=== PATIENT | female | born 1985 | race Caucasian/White ===

== ENCOUNTER → 2016-11-25 | Outpatient (CLI) | payer MEDICARE, MEDICAID | LOC: WI 09:01 | PROVIDERS: ATTEND Specialist | DX: K76.89 Other specified diseases of liver (principal) | CPT/HCPCS: 76705; 93976 ==

== ENCOUNTER → 2017-03-07 | Outpatient (CLI) | payer MEDICARE, MEDICAID ==
[2017-03-07 14:22] LABS: ABSOLUTE EOSINOPHILS # (AUTO) 0.2 10^3/uL (0.0-0.6); ABSOLUTE LYMPHOCYTES (AUTO) 2.5 10^3/uL (0.5-4.7); ABSOLUTE MONOCYTES (AUTO) 0.5 10^3/uL (0.1-1.4); ABSOLUTE NEUT (AUTO) 3.4 10^3/uL (1.7-8.2); BASOPHILS % (AUTO) 0.6 % (0-2); EOSINOPHILS % (AUTO) 3.3 % (0-6); HEMATOCRIT 38.1 % (36.0-47.0); HEMOGLOBIN 12.7 g/dL (12.0-15.5); LYMPHOCYTES % (AUTO) 38.1 % (13-45); MEAN CORPUSCULAR HEMOGLOBIN 31.6 pg (27.0-33.4); MEAN CORPUSCULAR HGB CONC 33.3 g/dL (32.0-36.0); MEAN CORPUSCULAR VOLUME 95 fl (80-97); MONOCYTES % (AUTO) 7.1 % (3-13); RED BLOOD COUNT 4.02 10^6/uL (3.72-5.28); RED CELL DISTRIBUTION WIDTH 12.9 % (11.5-14.0); SEGMENTED NEUTROPHILS % (AUTO) 50.9 % (42-78); WHITE BLOOD COUNT 6.6 10^3/uL (4.0-10.5)
[2017-03-07 14:42] LABS: ALANINE AMINOTRANSFERASE 42 U/L (9-52); ALBUMIN 4.3 g/dL (3.5-5.0); ALKALINE PHOSPHATASE 80 U/L (38-126); ANION GAP 10 (5-19); ASPARTATE AMINO TRANSFERASE 22 U/L (14-36); BILIRUBIN,DIRECT 0.4 mg/dL (0.0-0.4); BILIRUBIN,TOTAL 0.6 mg/dL (0.2-1.3); BLOOD UREA NITROGEN 15 mg/dL (7-20); CALCIUM 9.8 mg/dL (8.4-10.2); CARBON DIOXIDE 22 mmol/L (22-30); CHLORIDE 110 mmol/L (98-107); CHOLESTEROL 240.04 mg/dL (0-200); CREATININE RESULT 1.01 mg/dL (0.52-1.25); Direct HDL 36 mg/dL (>40); GLUCOSE 86 mg/dL (75-110); POTASSIUM 4.5 mmol/L (3.6-5.0); SODIUM 141.5 mmol/L (137-145); TOTAL PROTEIN 7.7 g/dL (6.3-8.2); TRIGLYCERIDES 321 mg/dL (<150)
[2017-03-07 14:53] LABS: DIRECT LDL 141 mg/dL (<100)
[2017-03-07 14:57] LABS: VLDL CHOLESTEROL 64.2 mg/dL (10-31)
== END ==
LOC: OD 13:09
PROVIDERS: ATTEND Psychiatry & Neurology Psychiatry
DX: F31.81 Bipolar II disorder (principal); F41.1 Generalized anxiety disorder; F43.10 Post-traumatic stress disorder, unspecified; F90.0 Attention-deficit hyperactivity disorder, predominantly inattentive type
CPT/HCPCS: 36415; 80053; 80061; 84443; 85025

== ENCOUNTER 2017-04-20 19:02 | Emergency (ER) | payer MEDICARE, MEDICAID ==
--- NOTE | 2017-04-20 20:40 | ER Document Report ---
ED General - General Chief Complaint: Back Pain Stated Complaint: BACK PAIN Time Seen by Provider: 04/20/17 20:05 TRAVEL OUTSIDE OF THE [place] IN LAST 30 DAYS: No - HPI Notes: Patient is a 31yo female who presents with acute LBP s/p carrying a case of water and gatorade from her car into her house this evening. Pt arrived by ambulance. Pt states that sitting makes the pain worse, while supine helps. The pain does not radiate and is described as sharp. The pain is located midline. Pt has not had any meds for her symptoms; although, she does take Gabapentin, soma, methocarbamol and other psych meds regularly. Pt has a h/o cervicalgia, anxiety, and bipolar disorder. Pt has not had ongoing low back pain prior to this incident. Pt states that she is still eating, drinking, and urinating normally otherwise. Denies any fever, CP, syncope, palp, sob, dyspnea , wheezing, cough, abd pain, n/v/d/c, loss of control of b/b, hematuria, dysuria , muscle weakness/paralysis, numbness/tingling, or rash. - Related Data Allergies/Adverse Reactions: Sulfa (Sulfonamide Antibiotics) Allergy (Verified 04/18/16 20:20) Past Medical History - Social History Smoking Status: Current Every Day Smoker Family History: Reviewed & Not Pertinent Patient has suicidal ideation: No Patient has homicidal ideation: No Neurological Medical History: Reports: Hx Migraine Renal/ Medical History: Denies: Hx Peritoneal Dialysis Psychiatric Medical History: Reports: Hx Anxiety, Hx Bipolar Disorder, Hx Depression Past Surgical History: Reports: Hx Section, Hx Cholecystectomy - Immunizations Immunizations up to date: Yes Hx Diphtheria, Pertussis, Tetanus Vaccination: Yes Review of Systems - Review of Systems Notes: REVIEW OF SYSTEMS: CONSTITUTIONAL : Denies fever, chills, or sweats. Denies recent illness. CARDIOVASCULAR: Denies chest pain. Denies palpitations or racing or irregular heart beat. Denies ankle edema. RESPIRATORY: Denies cough, cold, or chest congestion. Denies shortness of breath, difficulty breathing, or wheezing. GASTROINTESTINAL: Denies abdominal pain or distention. Denies nausea, vomiting , or diarrhea. Denies blood in vomitus, stools, or per rectum. Denies black, tarry stools. Denies constipation. GENITOURINARY: Denies difficulty urinating, painful urination, burning, frequency, blood in urine, or discharge. FEMALE GENITOURINARY: Denies vaginal bleeding, heavy or abnormal periods, irregular periods. Denies vaginal discharge or odor. MUSCULOSKELETAL: see hpi SKIN: Denies rash, lesions or sores. NEUROLOGICAL: Denies confusion or altered mental status. Denies passing out or loss of consciousness. Denies dizziness or lightheadedness. Denies headache. Denies weakness or paralysis or loss of use of either side. Denies sensory loss, numbness, or tingling. Denies seizures. ALL OTHER SYSTEMS REVIEWED AND NEGATIVE. Dictation was performed using [employer] voice recognition software Physical Exam - Vital signs Vitals: Temp Pulse Resp BP Pulse Ox 98.8 F 126 H 26 H 112/72 98 04/20/17 19:23 04/20/17 19:23 04/20/17 19:23 04/20/17 19:23 04/20/17 19:23 Notes: PHYSICAL EXAMINATION: GENERAL: Well-appearing, well-nourished and in no acute distress. Vitals: Pulse 64, RR 16 NECK: Normal range of motion, supple without lymphadenopathy LUNGS: Breath sounds clear to auscultation bilaterally and equal. No wheezes rales or rhonchi. HEART: Regular rate and rhythm without murmurs, rubs, gallops. ABDOMEN: Soft, nontender, nondistended abdomen. No guarding, no rebound. No masses appreciated. Normal bowel sounds present. No CVA tenderness bilaterally. No pulsatile mass appreciated. Anal sphincter tone intact. Musculoskeletal: FROM to passive/active to LE's b/l. Strength 5+/5. SLR neg b/ l. Cathryn neg b/l Extremities: No cyanosis, clubbing, or edema b/l. Peripheral pulses 2+. Capillary refill less than 3 seconds. NEUROLOGICAL: Gait ataxic currently. Normal sensory, motor exams. Reflexes 2+ b /l to LE's. PSYCH: Normal mood, normal affect. SKIN: Warm, Dry, normal turgor, no rashes or lesions noted. Course - Re-evaluation Re-evalutation: 04/20/17 21:48 Patient is an afebrile, well-hyrated, 31yo female who presents with acute LBP s/ p injury this evening. Vitals recheck stable (see PE). Urine neg. L- spine XR unremarkable for acute fracture or dislocation. Oxycodone 10mg given today for pain control. Vitals are stable. Neurovascularly intact distal. After eval and re-eval, I estimate there is low suspicion/risk for AAA, cauda equina, epidural mass lesion, or severe herniation with nerve compromise. Pt already on gabapentin and muscle relaxers along with NSAIDs. I will give her only a few [place] to help with temporary relief, but recommend recheck with PCM in 2-3 days. Consider consult with Orthopedics/physical therapy for ongoing/ worsening symptoms. Return to the ED with worsening symptoms as reviewed in d/ c. Pt in agreement. - Vital Signs Vital signs: Temp Pulse Resp BP Pulse Ox 98.8 F 126 H 26 H 112/72 98 04/20/17 19:23 04/20/17 19:23 04/20/17 19:23 04/20/17 19:23 04/20/17 19:23 Discharge - Discharge Clinical Impression: Low back pain Qualifiers: Chronicity: acute Back pain laterality: midline Sciatica presence: without sciatica Qualified Code(s): M54.5 - Low back pain Condition: Stable Disposition: HOME, SELF-CARE Instructions: Ice Packs ([facility]), Low Back Pain ([facility]), Muscle Strain ([facility]), Warm Packs ([facility]), Oral Narcotic Medication ([facility]) Additional Instructions: Rest, Ice Tylenol/ibuprofen as needed Light stretches daily Strength exercises as able Moist heat and massage may help F/u with your PCP in 2-3 days for a recheck Consider consult(s) with Orthopedics/physical therapy for ongoing/worsening symptoms. Return to the ED with any worsening pain, saddle anesthesia, loss of control of bowel/bladder, urinary retention, numbness/tingling, muscle weakness/parlysis, abdominal pain, blood in urine or stool, and/or development of fever or any other worsening symptoms otherwise. Prescriptions: Hydrocodone/Acetaminophen [[place] 5-325 mg Tablet] 1 tab PO BID PRN #6 tablet PRN Reason:
[2017-04-20] MEDS ORDERED: OXYCODONE HCL IR 5 MG TABLET PO ONE (21:23)
--- NOTE | 2017-04-20 21:52 | RADIOLOGY REPORT (SQ) ---
EXAM DESCRIPTION: L SPINE WHOLE COMPLETED DATE/TIME: 04/20/2017 9:39 pm REASON FOR STUDY: acute low back pain COMPARISON: None. NUMBER OF VIEWS: Five views including obliques. TECHNIQUE: AP, lateral, oblique, and sacral radiographic images acquired of the lumbar spine. LIMITATIONS: None. FINDINGS: MINERALIZATION: Normal. SEGMENTATION: Normal. No transitional anatomy. ALIGNMENT: Normal. VERTEBRAE: Maintained height. No fracture or worrisome bone lesion. DISCS: Preserved height. No significant osteophytes or end plate irregularity. POSTERIOR ELEMENTS: Pedicles and facets are intact. No pars defect or posterior arch defects. HARDWARE: None in the spine. PARASPINAL SOFT TISSUES: Normal. PELVIS: Intact as visualized. No fractures or worrisome bone lesions. SI joints intact. OTHER: No other significant finding. IMPRESSION: NORMAL 5 VIEW LUMBAR SPINE. TECHNICAL DOCUMENTATION: JOB ID: [id number] [employer]- All Rights Reserved
[2017-04-20 22:55] VITALS: BP 136/86
== END 2017-04-20 22:55 | disposition home or self-care (01) ==
LOC: ER 19:02
DX: T14.90 Injury, unspecified (principal); X58.XXXA Exposure to other specified factors, initial encounter; M54.5 Low back pain; M54.2 Cervicalgia; F17.200 Nicotine dependence, unspecified, uncomplicated; Z79.899 Other long term (current) drug therapy; Z88.2 Allergy status to sulfonamides; Z79.1 Long term (current) use of non-steroidal anti-inflammatories (NSAID)
CPT/HCPCS: 99284; 81025; 72110; A9270

== ENCOUNTER 2017-06-26 19:43 | Emergency (ER) | payer MEDICARE, MEDICAID ==
[2017-06-26] MEDS ORDERED: ACETAMINOPHEN 325 MG TABLET PO ONE (20:52)
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
[2017-06-26 22:41] VITALS: BP 113/68
== END 2017-06-26 22:42 | disposition home or self-care (01) ==
LOC: ER 19:43
DX: S06.9X9A Unspecified intracranial injury with loss of consciousness of unspecified duration, initial encounter (principal); S90.02XA Contusion of left ankle, initial encounter; S00.12XA Contusion of left eyelid and periocular area, initial encounter; S00.83XA Contusion of other part of head, initial encounter; Y04.2XXA Assault by strike against or bumped into by another person, initial encounter; Y92.009 Unspecified place in unspecified non-institutional (private) residence as the place of occurrence of the external cause; R68.84 Jaw pain; R51 Headache; F17.200 Nicotine dependence, unspecified, uncomplicated; Z88.2 Allergy status to sulfonamides
CPT/HCPCS: 99284; 70450; 70486; A9270

== ENCOUNTER 2018-05-20 20:25 | Emergency (ER) | payer MEDICAID, MEDICARE ==
--- NOTE | 2018-05-20 21:36 | ER Document Report ---
ED Medical Screen (RME) - General Chief Complaint: Back Pain Stated Complaint: SHOULDER PAIN Time Seen by Provider: 05/20/18 21:34 Mode of Arrival: Ambulatory Information source: Patient TRAVEL OUTSIDE OF THE [place] IN LAST 30 DAYS: No - HPI Patient complains to provider of: Left sided pain Notes: 05/20/18 21:35 Patient is a 32-year-old female presenting to the emergency room complaining of pain under her left shoulder blade, it is sharp and stabbing in hurts more when she takes a deep breath, she reports a history of multiple kidney stones in the past as well as urosepsis from a kidney stone 05/20/18 21:36 RAPID MEDICAL EVALUATION DISCLOSURE I have seen this patient as part of a Rapid Medical Evaluation and, if applicable, placed any initially appropriate orders. The patient will be seen and fully evaluated, including a full history and physical exam, by a provider ( in Main ED or Fast Track) when a room becomes available. - Related Data Allergies/Adverse Reactions: Sulfa (Sulfonamide Antibiotics) Allergy (Verified 04/18/16 20:20) Past Medical History - Social History Family history: Reviewed & Not Pertinent Neurological Medical History: Reports: Hx Migraine Renal/ Medical History: Denies: Hx Peritoneal Dialysis Psychiatric Medical History: Reports: Hx Anxiety, Hx Attention Deficit Hyperactivity Disorder, Hx Bipolar Disorder, Hx Depression Past Surgical History: Reports: Hx Section, Hx Cholecystectomy, Hx Genitourinary Surgery - Immunizations Immunizations up to date: Yes Hx Diphtheria, Pertussis, Tetanus Vaccination: Yes Physical Exam - Vital signs Vitals: Temp Pulse Resp BP Pulse Ox 99.0 F 105 H 16 131/71 H 96 05/20/18 20:33 05/20/18 20:33 05/20/18 20:33 05/20/18 20:33 05/20/18 20:33 Course - Vital Signs Vital signs: Temp Pulse Resp BP Pulse Ox 99.0 F 105 H 16 131/71 H 96 05/20/18 20:33 05/20/18 20:33 05/20/18 20:33 05/20/18 20:33 05/20/18 20:33 Doctor's Discharge - Discharge Referrals: LYDIA SHAFER MD [Primary Care Provider] - Follow up as needed
--- NOTE | 2018-05-20 22:40 | RADIOLOGY REPORT (SQ) ---
EXAM DESCRIPTION: CHEST 2 VIEWS COMPLETED DATE/TIME: 05/20/2018 10:18 pm REASON FOR STUDY: left rib pain COMPARISON: None. EXAM PARAMETERS: NUMBER OF VIEWS: two views TECHNIQUE: Digital Frontal and Lateral radiographic views of the chest acquired. RADIATION DOSE: NA LIMITATIONS: none FINDINGS: LUNGS AND PLEURA: No consolidation, pneumothorax or pleural effusion. Mild atelectasis at the left lung base. MEDIASTINUM AND HILAR STRUCTURES: No masses or contour abnormalities. HEART AND VASCULAR STRUCTURES: Heart normal size. No evidence for failure. BONES: No acute findings. HARDWARE: None in the chest. IMPRESSION: Mild atelectasis at the left lung base. TECHNICAL DOCUMENTATION: JOB ID: [id number] [employer]- All Rights Reserved Reading location - IP/workstation name: [email or web address]
[2018-05-20 22:50] LABS: ABSOLUTE BASOPHILS # (AUTO) 0.1 10^3/uL (0.0-0.2); ABSOLUTE EOSINOPHILS # (AUTO) 0.3 10^3/uL (0.0-0.6); ABSOLUTE LYMPHOCYTES (AUTO) 3.6 10^3/uL (0.5-4.7); ABSOLUTE MONOCYTES (AUTO) 0.7 10^3/uL (0.1-1.4); ABSOLUTE NEUT (AUTO) 6.1 10^3/uL (1.7-8.2); BASOPHILS % (AUTO) 0.6 % (0-2); EOSINOPHILS % (AUTO) 2.7 % (0-6); HEMATOCRIT 38.7 % (36.0-47.0); HEMOGLOBIN 13.4 g/dL (12.0-15.5); LYMPHOCYTES % (AUTO) 33.5 % (13-45); MEAN CORPUSCULAR HEMOGLOBIN 31.4 pg (27.0-33.4); MEAN CORPUSCULAR HGB CONC 34.6 g/dL (32.0-36.0); MEAN CORPUSCULAR VOLUME 91 fl (80-97); MONOCYTES % (AUTO) 6.3 % (3-13); PLATELET COUNT 248 10^3/uL (150-450); RED BLOOD COUNT 4.27 10^6/uL (3.72-5.28); RED CELL DISTRIBUTION WIDTH 13.1 % (11.5-14.0); SEGMENTED NEUTROPHILS % (AUTO) 56.9 % (42-78); TOTAL CELLS COUNTED % (AUTO) 100 %; WHITE BLOOD COUNT 10.8 10^3/uL (4.0-10.5)
[2018-05-20 22:54] LABS: APPEARANCE,URINE SLIGHTLY-CLOUDY; BILIRUBIN,URINE NEGATIVE (NEGATIVE); COLOR,URINE YELLOW; GLUCOSE, URINE NEGATIVE (NEGATIVE); KETONES,URINE NEGATIVE (NEGATIVE); LEUKOCYTE ESTERASE,URINE SMALL (NEGATIVE); NITRITE,URINE NEGATIVE (NEGATIVE); PROTEIN,URINE NEGATIVE (NEGATIVE); URINE SPECIFIC GRAVITY 1.009; UROBILINOGEN,URINE NEGATIVE mg/dL (<2.0)
[2018-05-20 23:13] LABS: ALANINE AMINOTRANSFERASE 43 U/L (9-52); ALBUMIN 4.5 g/dL (3.5-5.0); ALKALINE PHOSPHATASE 75 U/L (38-126); ANION GAP 12 (5-19); ASPARTATE AMINO TRANSFERASE 34 U/L (14-36); BILIRUBIN,DIRECT 0.3 mg/dL (0.0-0.4); BILIRUBIN,TOTAL 0.4 mg/dL (0.2-1.3); BLOOD UREA NITROGEN 19 mg/dL (7-20); CALCIUM 9.8 mg/dL (8.4-10.2); CARBON DIOXIDE 27 mmol/L (22-30); CHLORIDE 102 mmol/L (98-107); GLUCOSE 76 mg/dL (75-110); LIPASE 52.7 U/L (23-300); POTASSIUM 4.7 mmol/L (3.6-5.0); SODIUM 141.1 mmol/L (137-145); TOTAL PROTEIN 7.7 g/dL (6.3-8.2)
[2018-05-21] MEDS ORDERED: KETOROLAC TROMETHAMINE 60 MG/2 ML SDV IM ONE (00:10)
[2018-05-21] MEDS ORDERED: LIDOCAINE 5% (700 MG) TRANSDERMAL ADH..PATCH TP ONE (00:10)
[2018-05-21] MEDS ORDERED: CEPHALEXIN 500 MG CAPSULE PO ONE (00:10)
--- NOTE | 2018-05-21 00:13 | ER Document Report ---
ED General - General Chief Complaint: Back Pain Stated Complaint: SHOULDER PAIN Time Seen by Provider: 05/20/18 21:34 Mode of Arrival: Ambulatory Notes: Patient is a 32 female without chronic medical problems who presents complaining of several hours of left shoulder, left trapezius and left periscapular pain. Patient states that this pain started gradually and has actually eased off since coming to the emergency department without intervention. He describes the pain as a dull, throbbing and constant pain worsened by breathing or moving. Nothing improves the pain. She denies a history of similar symptoms in the past. She is uncertain if she has done anything to trigger the injury. She has not seen her general doctor regarding today's concerns. She denies any associated shortness of breath, unilateral leg swelling or hemoptysis. No use of estrogen or history of DVT or pulmonary embolus. No chest pain. TRAVEL OUTSIDE OF THE [place] IN LAST 30 DAYS: No - Related Data Allergies/Adverse Reactions: Sulfa (Sulfonamide Antibiotics) Allergy (Verified 04/18/16 20:20) Past Medical History - General Information source: Patient - Social History Smoking Status: Current Every Day Smoker Chew tobacco use (# tins/day): No Frequency of alcohol use: None Drug Abuse: Marijuana Lives with: Family Family History: Reviewed & Not Pertinent Patient has suicidal ideation: No Patient has homicidal ideation: No Neurological Medical History: Reports: Hx Migraine Renal/ Medical History: Reports: Hx Kidney Stones. Denies: Hx Peritoneal Dialysis Psychiatric Medical History: Reports: Hx Anxiety, Hx Attention Deficit Hyperactivity Disorder, Hx Bipolar Disorder, Hx Depression Past Surgical History: Reports: Hx Section, Hx Cholecystectomy, Hx Genitourinary Surgery - stones - Immunizations Immunizations up to date: Yes Hx Diphtheria, Pertussis, Tetanus Vaccination: Yes Review of Systems - Review of Systems Notes: Constitutional: Negative for fever. HENT: Negative for sore throat. Eyes: Negative for visual changes. Cardiovascular: Negative for chest pain. Respiratory: Negative for shortness of breath. Gastrointestinal: Negative for abdominal pain, vomiting or diarrhea. Genitourinary: Negative for dysuria. Musculoskeletal: Positive for left shoulder and left upper back pain Skin: Negative for rash. Neurological: Negative for headaches, weakness or numbness. 10 point ROS negative except as marked above and in HPI. Physical Exam - Vital signs Vitals: Temp Pulse Resp BP Pulse Ox 99.0 F 105 H 16 131/71 H 96 05/20/18 20:33 05/20/18 20:33 05/20/18 20:33 05/20/18 20:33 05/20/18 20:33 Interpretation: Tachycardic - Resolved at the time of my assessment Notes: PHYSICAL EXAMINATION: GENERAL: Well-appearing, well-nourished and in no acute distress. HEAD: Atraumatic, normocephalic. EYES: Pupils equal round and reactive to light, extraocular movements intact, sclera anicteric, conjunctiva are normal. ENT: nares patent, oropharynx clear without exudates. Moist mucous membranes. NECK: Normal range of motion, supple without lymphadenopathy LUNGS: Breath sounds clear to auscultation bilaterally and equal. No wheezes rales or rhonchi. HEART: Regular rate and rhythm without murmurs ABDOMEN: Soft, nontender, normoactive bowel sounds. No guarding, no rebound. No masses appreciated. EXTREMITIES: Normal range of motion, no pitting or edema. No cyanosis. No obvious deformity or swelling to left shoulder or trapezius. Back: No midline spinal tenderness, step-offs or deformities. NEUROLOGICAL: No focal neurological deficits. Moves all extremities spontaneously and on command. PSYCH: Normal mood, normal affect. SKIN: Warm, Dry, normal turgor, no rashes or lesions noted. Course - Re-evaluation Re-evalutation: 05/21/18 00:13 Patient presents with spasms and pain on her left trapezius and around her left scaphoid. She states that the pain has improved since onset without acute intervention and her main concern was that she has been ill in the past and was worried it could be something more serious. She is PERC criteria negative ( please note initial heart rate was 105 the patient notes that she was quite nervous at time of presentation, heart rate 70 at the time of my assessment and normal at time of discharge without administration of IV fluids). Moreover she denies any shortness of breath. Chest x-ray clear without any evidence of a pneumothorax or infiltrate. Labs otherwise unremarkable with exception of a urinalysis was appears to show a possible urinary tract infection. Patient does note some mild dysuria over the past several days and so will be initiated on cephalexin for the next 5 days. Patient has no focal abdominal tenderness on examination to suggest free intraperitoneal fluid that could be causing left shoulder pain. I have started the patient on topical Voltaren gel as well as muscle relaxants at night. At this time will discharge with return precautions and follow-up recommendations. Verbal discharge instructions given a the bedside and opportunity for questions given. Medication warnings reviewed. Patient is in agreement with this plan and has verbalized understanding of return precautions and the need for primary care follow-up in the next 24-72 hours. - Vital Signs Vital signs: Temp Pulse Resp BP Pulse Ox 98.6 F 98 16 116/68 96 05/21/18 00:34 05/21/18 00:34 05/21/18 00:34 05/21/18 00:34 05/21/18 00:34 - Laboratory Result Diagrams: 05/20/18 22:30 05/20/18 22:30 Laboratory results interpreted by me: 05/20/18 05/20/18 05/20/18 22:30 22:30 22:30 WBC 10.8 H Est GFR (Non-Af Amer) 50 L Ur Leukocyte Esterase SMALL H - Diagnostic Test Radiology reviewed: Image reviewed, Reports reviewed Radiology results interpreted by me: 05/21/18 00:15 Chest x-ray: No acute infiltrate pneumothorax Discharge - Discharge Clinical Impression: Upper back pain Left shoulder pain Qualifiers: Chronicity: acute Qualified Code(s): M25.512 - Pain in left shoulder Condition: Good Disposition: HOME, SELF-CARE Additional Instructions: You have been seen in the Emergency Department (ED) today for upper back pain. Your workup and exam have not shown any acute abnormalities and you are likely suffering from muscle strain or possible problems with your discs, but there is no treatment that will fix your symptoms at this time. Apply the Voltaren gel as prescribed. You should also purchase a local lidocaine cream such as "aspercreme with lidocaine" and use per bottle instructions to the affected area. Apply heat to the area as often as you are able. Continue to keep active and avoid prolonged periods of bed rest. Please follow up with your doctor as soon as possible regarding today's ED visit and your back pain. Return to the ED for worsening back pain, fever, weakness or numbness of either leg, or if you develop either (1) an inability to urinate or have bowel movements, or (2) loss of your ability to control your bathroom functions (if you start having "accidents"), or if you develop other new symptoms that concern you.concern you. Prescriptions: Cyclobenzaprine HCl [Flexeril 10 mg Tablet] 10 mg PO QHS PRN #15 tablet PRN Reason: Diclofenac Sodium [Voltaren] 4 gm TP TID PRN #100 gel..gram. PRN Reason: Referrals: LYDIA SHAFER MD [NO LOCAL MD] - Follow up as needed
[2018-05-21 00:36] VITALS: BP 116/68
== END 2018-05-21 00:37 | disposition home or self-care (01) ==
LOC: ER 20:25
DX: M25.512 Pain in left shoulder (principal); M62.830 Muscle spasm of back; M54.89 Other dorsalgia; R30.0 Dysuria; F17.200 Nicotine dependence, unspecified, uncomplicated; F12.10 Cannabis abuse, uncomplicated; Z88.2 Allergy status to sulfonamides
CPT/HCPCS: 99284; 96372; 36415; 87086; 83690; 85025; 81025; 80053; 81001; 71046; A9270; J1885

== ENCOUNTER 2018-07-03 10:50 | Emergency (ER) | payer MEDICARE ==
--- NOTE | 2018-07-03 12:31 | ER Document Report ---
ED General - General Chief Complaint: Flank Pain Stated Complaint: FLANK PAIN Time Seen by Provider: 07/03/18 12:14 Notes: Patient is a 32-year-old female with kidney stones that presents to the emergency department for chief complaint of left flank pain. Patient states that her symptoms started this past Monday, she went to see her primary care at that time, and since that time she has had intermittent worsening left flank pain, and last night it radiated towards the groin she did go back to her primary care's office today, she was prescribed previously last week Cipro and Flomax, and advised to follow-up with urology. She has not called her urologist yet, she does have a significant history for multiple kidney stones in the past. She has noted blood in the urine, claims she is on her menstrual period at this time, she denies having any dysuria, fevers, chills, night sweats , chest pain. To having some nausea and vomiting, but the nausea is resolved at this time. Past Medical History: Depression, anxiety, kidney stones, chronic low back pain Past Surgical History: Surgeries for kidney stones, , cholecystectomy Social History: Admits to smoking cigarettes daily, denies alcohol or drug use. Family History: Reviewed and noncontributory for presenting illness Allergies: Reviewed, see documented allergy list. REVIEW OF SYSTEMS: Unless otherwise stated in this report the patient's positive and negative responses for review of systems for constitutional, eyes, ENT, cardiovascular, respiratory, gastrointestinal, neurological, genitourinary, musculoskeletal, and integumentary systems and related systems to the presenting problem are either as stated in the HPI or were not pertinent or were negative for the symptoms and/or complaints related to the presenting medical problem. PHYSICAL EXAMINATION: Vital signs reviewed, nursing noted reviewed. GENERAL: Well-appearing, well-nourished and in no acute distress. HEAD: Atraumatic, normocephalic. EYES: Eyes appear normal, extraocular movements intact, sclera anicteric, conjunctiva are normal. ENT: nares patent, oropharynx clear without exudates. Moist mucous membranes. NECK: Normal range of motion, supple without lymphadenopathy LUNGS: Breath sounds clear to auscultation bilaterally and equal. No wheezes rales or rhonchi. HEART: Regular rate and rhythm without murmurs ABDOMEN: Soft, normoactive bowel sounds. No rebound, guarding, or rigidity. No masses appreciated. Mild flank tenderness on the left compared to the right. EXTREMITIES: Nontender, good range of motion, no pitting or edema. NEUROLOGICAL: No focal neurological deficits. Moves all extremities spontaneously Motor and sensory grossly intact on exam. PSYCH: Normal mood, normal affect. SKIN: Warm, Dry, normal turgor, no rashes or lesions noted on exposed skin TRAVEL OUTSIDE OF THE [place] IN LAST 30 DAYS: No - Related Data Allergies/Adverse Reactions: Sulfa (Sulfonamide Antibiotics) Allergy (Verified 04/18/16 20:20) Past Medical History - Social History Smoking Status: Former Smoker Drug Abuse: Marijuana Family History: Reviewed & Not Pertinent Patient has suicidal ideation: No Patient has homicidal ideation: No Neurological Medical History: Reports: Hx Migraine Renal/ Medical History: Reports: Hx Kidney Stones. Denies: Hx Peritoneal Dialysis Psychiatric Medical History: Reports: Hx Anxiety, Hx Attention Deficit Hyperactivity Disorder, Hx Bipolar Disorder, Hx Depression Past Surgical History: Reports: Hx Section, Hx Cholecystectomy, Hx Genitourinary Surgery - stones - Immunizations Immunizations up to date: Yes Hx Diphtheria, Pertussis, Tetanus Vaccination: Yes Review of Systems - Review of Systems Notes: Dictated Physical Exam - Vital signs Vitals: Temp Pulse Resp BP Pulse Ox 97.6 F 87 20 141/82 H 100 07/03/18 11:19 07/03/18 11:19 07/03/18 11:19 07/03/18 11:19 07/03/18 11:19 - Notes Notes: Dictated Course - Re-evaluation Re-evalutation: 07/03/18 12:31 Patient seen and examined vital signs reviewed. Laboratory data and imaging were ordered as appropriate for the patient's presenting symptoms and complaint, with consideration of any critical or life threatening conditions that may be associated with their obtained history and exam as noted above. Results were reviewed when available and demonstrated no acute intraabdominal process, specifically no intraureteral stones noted. Bloodwork was essentially unremarkable, normal renal function, UA trace LE, HCG negative. The patient was re-evaluated and appeared well. Evaluation was most consistent with renal colic/non-specific right flank pain Results were discussed with the patient at this point, after careful consideration I feel that that patient can be discharged from the emergency department, the patient was educated treatments and reasons to return to the emergency department based on their presumed diagnosis as noted above, they were advised to followup with a primary care physician in 2-3 days. Patient was agreeable to plan of care. She was encourage to continue the flomax and cipro that she was previously prescribed. Given prescriptions for naproxen and zofran if needed. *Note is created using voice recognition software and may contain spelling, syntax or grammatical errors. Laboratory 07/03/18 07/03/18 07/03/18 12:05 12:35 12:35 WBC 9.9 RBC 4.07 Hgb 12.9 Hct 37.7 MCV 93 MCH 31.7 MCHC 34.2 RDW 13.6 Plt Count 247 Seg Neutrophils % 56.7 Lymphocytes % 31.0 Monocytes % 8.0 Eosinophils % 3.8 Basophils % 0.5 Absolute Neutrophils 5.6 Absolute Lymphocytes 3.1 Absolute Monocytes 0.8 Absolute Eosinophils 0.4 Absolute Basophils 0.1 Sodium 141.4 Potassium 4.6 Chloride 107 Carbon Dioxide 24 Anion Gap 10 BUN 18 Creatinine 1.05 Est GFR ( Amer) > 60 Est GFR (Non-Af Amer) > 60 Glucose 85 Calcium 9.9 Total Bilirubin 0.4 Direct Bilirubin 0.4 Neonat Total Bilirubin Not Reportable Neonat Direct Bilirubin Not Reportable Neonat Indirect Bili Not Reportable AST 62 H ALT 67 H Alkaline Phosphatase 81 Total Protein 7.7 Albumin 4.4 Lipase 269.4 Urine Color STRAW Urine Appearance CLEAR Urine pH 5.0 Ur Specific [place] 1.016 Urine Protein NEGATIVE Urine Glucose (UA) NEGATIVE Urine Ketones NEGATIVE Urine Blood SMALL H Urine Nitrite NEGATIVE Urine Bilirubin NEGATIVE Urine Urobilinogen NEGATIVE Ur Leukocyte Esterase SMALL H Urine WBC (Auto) 13 Urine RBC (Auto) 2 Squamous Epi Cells Auto 2 Urine Mucus (Auto) RARE Urine Ascorbic Acid NEGATIVE Urine HCG, Qual NEGATIVE Abdomen/Pelvis CT 07/03/18 12:20 IMPRESSION: Bilateral nephrocalcinosis. Atrophy involving the left kidney. No acute hydronephrosis or hydroureter. 07/05/18 20:09 - Vital Signs Vital signs: Temp Pulse Resp BP Pulse Ox 97.9 F 80 18 132/74 H 100 07/03/18 14:19 07/03/18 14:19 07/03/18 14:19 07/03/18 14:19 07/03/18 14:19 - Laboratory Result Diagrams: 07/03/18 12:35 07/03/18 12:35 Laboratory results interpreted by me: 07/03/18 07/03/18 12:05 12:35 AST 62 H ALT 67 H Urine Blood SMALL H Ur Leukocyte Esterase SMALL H Discharge - Discharge Clinical Impression: Flank pain Condition: Good Disposition: HOME, SELF-CARE Additional Instructions: Please return to the emergency department if you have any worsening, or concern of your symptoms. Please return to the emergency department if you develop chest pain, difficulty breathing, severe abdominal pain, or ongoing vomiting. Please follow-up with your primary care physician in 2-3 days and any other recommended physicians. If prescribed, take all medications as directed. If you have any questions or concerns do not hesitate to return the emergency department for evaluation. Please follow-up with your urologist in the next 2-3 days. Continue taking previously prescribed ciprofloxacin, and Flomax. Prescriptions: Naproxen [Naprosyn] 500 mg PO Q12 PRN #20 tablet PRN Reason: flank pain Ondansetron [Zofran Odt 4 mg Tablet] 1 tab PO Q6H PRN #15 tab.rapdis PRN Reason: For Nausea/Vomiting Referrals: [facility] [Provider Group] - Follow up as needed
[2018-07-03 12:53] LABS: APPEARANCE,URINE CLEAR; BILIRUBIN,URINE NEGATIVE (NEGATIVE); COLOR,URINE STRAW; GLUCOSE, URINE NEGATIVE (NEGATIVE); KETONES,URINE NEGATIVE (NEGATIVE); LEUKOCYTE ESTERASE,URINE SMALL (NEGATIVE); NITRITE,URINE NEGATIVE (NEGATIVE); PROTEIN,URINE NEGATIVE (NEGATIVE); URINE SPECIFIC GRAVITY 1.016; UROBILINOGEN,URINE NEGATIVE mg/dL (<2.0)
[2018-07-03 12:55] LABS: ABSOLUTE BASOPHILS # (AUTO) 0.1 10^3/uL (0.0-0.2); ABSOLUTE EOSINOPHILS # (AUTO) 0.4 10^3/uL (0.0-0.6); ABSOLUTE LYMPHOCYTES (AUTO) 3.1 10^3/uL (0.5-4.7); ABSOLUTE MONOCYTES (AUTO) 0.8 10^3/uL (0.1-1.4); ABSOLUTE NEUT (AUTO) 5.6 10^3/uL (1.7-8.2); BASOPHILS % (AUTO) 0.5 % (0-2); EOSINOPHILS % (AUTO) 3.8 % (0-6); HEMATOCRIT 37.7 % (36.0-47.0); HEMOGLOBIN 12.9 g/dL (12.0-15.5); MEAN CORPUSCULAR HEMOGLOBIN 31.7 pg (27.0-33.4); MEAN CORPUSCULAR HGB CONC 34.2 g/dL (32.0-36.0); MEAN CORPUSCULAR VOLUME 93 fl (80-97); PLATELET COUNT 247 10^3/uL (150-450); RED BLOOD COUNT 4.07 10^6/uL (3.72-5.28); RED CELL DISTRIBUTION WIDTH 13.6 % (11.5-14.0); SEGMENTED NEUTROPHILS % (AUTO) 56.7 % (42-78); TOTAL CELLS COUNTED % (AUTO) 100 %; WHITE BLOOD COUNT 9.9 10^3/uL (4.0-10.5)
--- NOTE | 2018-07-03 13:16 | RADIOLOGY REPORT (SQ) ---
EXAM DESCRIPTION: CT ABD/PELVIS NO ORAL OR IV COMPLETED DATE/TIME: 07/03/2018 1:02 pm REASON FOR STUDY: flank pain, hx kidney stones COMPARISON: 08/07/2016 TECHNIQUE: CT scan of the abdomen and pelvis performed without intravenous or oral contrast. Images reviewed with lung, soft tissue, and bone windows. Reconstructed coronal and sagittal MPR images revi ewed. All images stored on PACS. All CT scanners at this facility use dose modulation, iterative reconstruction, and/or weight based d osing when appropriate to reduce radiation dose to as low as reasonably achievable (ALARA). [facility]: Dose Right [facility]: CareDose [facility]: Dose Right [facility]: Teradose 4D [facility]: Smart Jeds [employer] RADIATION DOSE: CT Rad equipment meets quality standard of care and radiation dose reduction techniq ues were employed. CTDIvol: 17.0 mGy. DLP: 1004 mGy-cm.mGy. LIMITATIONS: None. FINDINGS: LOWER CHEST: No significant findings. No nodules or infiltrates. NON-CONTRASTED LIVER, SPLEEN, ADRENALS: Evaluation limited by lack of IV contrast. No identified sign ificant masses. PANCREAS: No masses. No peripancreatic inflammatory changes. GALLBLADDER: Surgically absent. RIGHT KIDNEY AND URETER: No suspicious masses. Assessment limited by lack of IV contrast. There is nephrocalcinosis. No hydronephrosis or hydroureter. LEFT KIDNEY AND URETER: No suspicious masses. Assessment limited by lack of IV contrast. There is n ephrocalcinosis. No hydronephrosis or hydroureter. The left kidney is atrophic new from prior stud y. AORTA AND RETROPERITONEUM: No aneurysm. No retroperitoneal masses or adenopathy. BOWEL AND PERITONEAL CAVITY: No obvious masses or inflammatory changes. No free fluid. APPENDIX: Normal. PELVIS, BLADDER, AND ABDOMINAL WALL:No abnormal masses. No free fluid. Bladder normal. BONES: No significant findings. OTHER: No other significant finding. IMPRESSION: Bilateral nephrocalcinosis. Atrophy involving the left kidney. No acute hydronephrosis or hydroureter. COMMENT: Quality ID # [id number]: Final reports with documentation of one or more dose reduction techniques (e.g., Automated exposure control, adjustment of the mA and/or kV according to patient size, use of iterative reconstruction technique) TECHNICAL DOCUMENTATION: JOB ID: [id number]- All Rights Reserved Reading location - IP/workstation name: [email or web address]
[2018-07-03 13:17] LABS: ALANINE AMINOTRANSFERASE 67 U/L (9-52); ALBUMIN 4.4 g/dL (3.5-5.0); ALKALINE PHOSPHATASE 81 U/L (38-126); ANION GAP 10 (5-19); ASPARTATE AMINO TRANSFERASE 62 U/L (14-36); BILIRUBIN,DIRECT 0.4 mg/dL (0.0-0.4); BILIRUBIN,TOTAL 0.4 mg/dL (0.2-1.3); BLOOD UREA NITROGEN 18 mg/dL (7-20); CALCIUM 9.9 mg/dL (8.4-10.2); CARBON DIOXIDE 24 mmol/L (22-30); CHLORIDE 107 mmol/L (98-107); GLUCOSE 85 mg/dL (75-110); LIPASE 269.4 U/L (23-300); POTASSIUM 4.6 mmol/L (3.6-5.0); SODIUM 141.4 mmol/L (137-145); TOTAL PROTEIN 7.7 g/dL (6.3-8.2)
[2018-07-03 14:21] VITALS: BP 132/74
== END 2018-07-03 14:28 | disposition home or self-care (01) ==
LOC: ER 10:50
DX: E83.59 Other disorders of calcium metabolism (principal); N29 Other disorders of kidney and ureter in diseases classified elsewhere; N26.1 Atrophy of kidney (terminal); R10.9 Unspecified abdominal pain; F12.10 Cannabis abuse, uncomplicated; Z87.442 Personal history of urinary calculi; Z88.2 Allergy status to sulfonamides
CPT/HCPCS: 36415; 74176; 80053; 81001; 81025; 83690; 85025; 99284

== ENCOUNTER 2018-07-22 20:45 | Emergency (ER) | payer MEDICARE, OTHER ==
[2018-07-22 23:16] LABS: ABSOLUTE BASOPHILS # (AUTO) 0.1 10^3/uL (0.0-0.2); ABSOLUTE EOSINOPHILS # (AUTO) 0.4 10^3/uL (0.0-0.6); ABSOLUTE MONOCYTES (AUTO) 0.8 10^3/uL (0.1-1.4); BASOPHILS % (AUTO) 0.9 % (0-2); EOSINOPHILS % (AUTO) 3.5 % (0-6); HEMOGLOBIN 12.6 g/dL (12.0-15.5); LYMPHOCYTES % (AUTO) 39.6 % (13-45); MEAN CORPUSCULAR HEMOGLOBIN 31.6 pg (27.0-33.4); MEAN CORPUSCULAR HGB CONC 34.1 g/dL (32.0-36.0); MEAN CORPUSCULAR VOLUME 93 fl (80-97); MONOCYTES % (AUTO) 7.5 % (3-13); PLATELET COUNT 230 10^3/uL (150-450); RED BLOOD COUNT 3.99 10^6/uL (3.72-5.28); RED CELL DISTRIBUTION WIDTH 13.4 % (11.5-14.0); SEGMENTED NEUTROPHILS % (AUTO) 48.5 % (42-78); TOTAL CELLS COUNTED % (AUTO) 100 %; WHITE BLOOD COUNT 10.2 10^3/uL (4.0-10.5)
[2018-07-22 23:22] LABS: APPEARANCE,URINE CLEAR; BILIRUBIN,URINE NEGATIVE (NEGATIVE); COLOR,URINE STRAW; GLUCOSE, URINE NEGATIVE (NEGATIVE); KETONES,URINE NEGATIVE (NEGATIVE); LEUKOCYTE ESTERASE,URINE TRACE (NEGATIVE); NITRITE,URINE NEGATIVE (NEGATIVE); PROTEIN,URINE NEGATIVE (NEGATIVE); UROBILINOGEN,URINE NEGATIVE mg/dL (<2.0)
[2018-07-22 23:30] LABS: ALANINE AMINOTRANSFERASE 36 U/L (9-52); ALBUMIN 4.3 g/dL (3.5-5.0); ALKALINE PHOSPHATASE 71 U/L (38-126); ANION GAP 10 (5-19); ASPARTATE AMINO TRANSFERASE 31 U/L (14-36); BILIRUBIN,DIRECT 0.5 mg/dL (0.0-0.4); BILIRUBIN,TOTAL 0.5 mg/dL (0.2-1.3); BLOOD UREA NITROGEN 16 mg/dL (7-20); CALCIUM 9.6 mg/dL (8.4-10.2); CARBON DIOXIDE 22 mmol/L (22-30); CHLORIDE 106 mmol/L (98-107); GLUCOSE 107 mg/dL (75-110); LIPASE 89.5 U/L (23-300); POTASSIUM 4.1 mmol/L (3.6-5.0); SODIUM 137.9 mmol/L (137-145); TOTAL PROTEIN 7.3 g/dL (6.3-8.2)
--- NOTE | 2018-07-23 03:59 | RADIOLOGY REPORT (SQ) ---
EXAM DESCRIPTION: XR ABDOMEN 1 VIEW (KUB) COMPLETED DATE/TME: 07/23/2018 02:03 CLINICAL HISTORY: abd/back pain COMPARISON: None. FINDINGS: Bowel: No dilated loops of large or small bowel. Peritoneum: No free intraperitoneal air identified. Solid organs: No definite organomegaly. Calcifications: Multiple punctate overlying the bilateral kidneys. Bones: No acute osseous abnormalities. Other: Prior cholecystectomy. IMPRESSION: 1. Multiple bilateral punctate nephrolithiasis. Possible medullary nephrocalcinosis.
--- NOTE | 2018-07-23 08:47 | EKG REPORT ---
SEVERITY:- OTHERWISE NORMAL ECG - SINUS TACHYCARDIA : Confirmed by: Maira Corrales 23-Jul-2018 08:46:25
[2018-07-23] MEDS ORDERED: ONDANSETRON HCL INJ/PF 4 MG/2 ML SDV IV ONE (08:58)
[2018-07-23] MEDS ORDERED: NORMAL SALINE 1000 ML 1,000 ML IV ONE (08:58)
[2018-07-23] MEDS ORDERED: MORPHINE SULFATE 10 MG/ML INJ IV ONE (08:58)
--- NOTE | 2018-07-23 09:02 | ER Document Report ---
ED General - General Chief Complaint: Abdominal Pain Stated Complaint: ABDOMINAL PAIN Time Seen by Provider: 07/23/18 08:40 TRAVEL OUTSIDE OF THE [place]. IN LAST 30 DAYS: No - HPI Notes: Patient is a 32-year-old female that presents to the emergency department for chief complaint of abdominal pain. Patient started having abdominal pain a few days ago. She states it started on her right side around her bellybutton and has now radiated down towards her right lower quadrant. The pain is worse with moving, sneezing or coughing. She does report nausea with no emesis. She started having diarrhea a few weeks ago after being started on Linzess, she denies change in her diarrhea over the last few days. She denies any hematemesis or hematochezia. She does have a history of severe kidney stones and has had multiple surgeries for kidney stone removal. She has had ureterolithiasis and states this feels similar. She has not taken any pain medication at home. The pain is sharp and constant. She denies any relieving factors. Past Medical History: Kidney stones Past Surgical History: Multiple kidney stone removals Social History: Daily tobacco, occasional marijuana, denies alcohol Family History: Reviewed and noncontributory for presenting illness Allergies: Reviewed, see documented allergy list. REVIEW OF SYSTEMS: CONSTITUTIONAL : No fever No chills No diaphoresis No recent illness EENT: No vision changes No congestion No sore throat CARDIOVASCULAR: No chest pain No palpitations RESPIRATORY: No shortness of breath No cough No difficulty breathing GASTROINTESTINAL: abdominal pain nausea vomiting diarrhea GENITOURINARY: No dysuria No hematuria No difficulty urinating MUSCULOSKELETAL: No back pain No leg pain No arm pain SKIN: No rashes No lesions LYMPHATIC: No swollen, enlarged glands. NEUROLOGICAL: No lightheadedness No headache No weakness No paresthesias PSYCHIATRIC: No anxiety No depression PHYSICAL EXAMINATION: Vital signs reviewed, nursing noted reviewed. GENERAL: Well-appearing, well-nourished and in no acute distress. HEAD: Atraumatic, normocephalic. EYES: Eyes appear normal, extraocular movements intact, sclera anicteric, conjunctiva are normal. ENT: nares patent, oropharynx clear without exudates. Moist mucous membranes. NECK: Normal range of motion, supple without lymphadenopathy LUNGS: Breath sounds clear to auscultation bilaterally and equal. No wheezes rales or rhonchi. HEART: Regular rate and rhythm without murmurs ABDOMEN: Soft, right lower quadrant and right upper quadrant tenderness, normoactive bowel sounds. No rebound, guarding, or rigidity. No masses appreciated. Right CVA tenderness, no left CVA tenderness EXTREMITIES: Nontender, good range of motion, no pitting or edema. NEUROLOGICAL: No focal neurological deficits. Moves all extremities spontaneously Motor and sensory grossly intact on exam. PSYCH: Normal mood, normal affect. SKIN: Warm, Dry, normal turgor, no rashes or lesions noted on exposed skin - Related Data Allergies/Adverse Reactions: Sulfa (Sulfonamide Antibiotics) Allergy (Verified 04/18/16 20:20) Past Medical History - Social History Smoking Status: Current Every Day Smoker Frequency of alcohol use: None Drug Abuse: Marijuana Family History: Reviewed & Not Pertinent Patient has suicidal ideation: No Patient has homicidal ideation: No Neurological Medical History: Reports: Hx Migraine Renal/ Medical History: Reports: Hx Kidney Stones. Denies: Hx Peritoneal Dialysis Psychiatric Medical History: Reports: Hx Anxiety, Hx Attention Deficit Hyperactivity Disorder, Hx Bipolar Disorder, Hx Depression Past Surgical History: Reports: Hx Section, Hx Cholecystectomy, Hx Genitourinary Surgery - stones - Immunizations Immunizations up to date: Yes Hx Diphtheria, Pertussis, Tetanus Vaccination: Yes Review of Systems - Review of Systems Notes: Dictated Physical Exam - Vital signs Vitals: Temp Pulse BP Pulse Ox 98.1 F 112 H 133/78 H 97 07/22/18 20:51 07/22/18 20:51 07/22/18 20:51 07/22/18 20:51 - Notes Notes: Dictated Course - Re-evaluation Re-evalutation: 07/23/18 09:01 Vitals reviewed and stable. Patient afebrile and nontoxic appearing. She was given IV fluids, Zofran, and morphine for symptomatic treatment. Lab work shows no leukocytosis or renal failure. She does have trace leukocytes and WBCs in her urine but is not symptomatic of urinary tract infection. Urine culture was obtained. KUB showed multiple stones in her kidneys which is consistent with her past medical history. Laboratory 07/22/18 07/22/18 07/22/18 22:27 23:00 23:00 WBC 10.2 RBC 3.99 Hgb 12.6 Hct 37.0 MCV 93 MCH 31.6 MCHC 34.1 RDW 13.4 Plt Count 230 Seg Neutrophils % 48.5 Lymphocytes % 39.6 Monocytes % 7.5 Eosinophils % 3.5 Basophils % 0.9 Absolute Neutrophils 5.0 Absolute Lymphocytes 4.0 Absolute Monocytes 0.8 Absolute Eosinophils 0.4 Absolute Basophils 0.1 Sodium 137.9 Potassium 4.1 Chloride 106 Carbon Dioxide 22 Anion Gap 10 BUN 16 Creatinine 1.01 Est GFR ( Amer) > 60 Est GFR (Non-Af Amer) > 60 Glucose 107 Calcium 9.6 Total Bilirubin 0.5 Direct Bilirubin 0.5 H Neonat Total Bilirubin Not Reportable Neonat Direct Bilirubin Not Reportable Neonat Indirect Bili Not Reportable AST 31 ALT 36 Alkaline Phosphatase 71 Total Protein 7.3 Albumin 4.3 Lipase 89.5 Beta HCG, Quant < 2.39 Total Beta HCG NEGATIVE Urine Color STRAW Urine Appearance CLEAR Urine pH 6.0 Ur Specific [place] 1.010 Urine Protein NEGATIVE Urine Glucose (UA) NEGATIVE Urine Ketones NEGATIVE Urine Blood NEGATIVE Urine Nitrite NEGATIVE Urine Bilirubin NEGATIVE Urine Urobilinogen NEGATIVE Ur Leukocyte Esterase TRACE H Urine WBC (Auto) 8 Urine RBC (Auto) 2 Squamous Epi Cells Auto 1 Urine Mucus (Auto) RARE Urine Ascorbic Acid NEGATIVE 07/23/18 10:32 KUB X-Ray 07/23/18 02:03 IMPRESSION: 1. Multiple bilateral punctate nephrolithiasis. Possible medullary nephrocalcinosis. Abdomen/Pelvis CT 07/23/18 08:58 IMPRESSION: No obstructive urinary stones on today's exam. Bilateral intrarenal nonobstructive calculi are present. No hydronephrosis or hydroureter Patient had symptomatic improvement, abdominal exam is still cleaner with no peritoneal signs. Appendix visualized on CT and normal. She has no ureteral stones. Patient will be given Zofran and Bentyl to take at home. She was told to return for any new or worsening symptoms. She is able to tolerate oral intake prior to discharge. Discharged home in stable condition. - Vital Signs Vital signs: Temp Pulse Resp BP Pulse Ox 97.8 F 107 H 17 119/72 98 07/23/18 10:02 07/23/18 10:02 07/23/18 05:37 07/23/18 10:02 07/23/18 10:02 - Laboratory Result Diagrams: 07/22/18 23:00 07/22/18 23:00 Laboratory results interpreted by me: 07/22/18 07/22/18 22:27 23:00 Direct Bilirubin 0.5 H Ur Leukocyte Esterase TRACE H Discharge - Discharge Clinical Impression: Abdominal pain Qualifiers: Abdominal location: right lower quadrant Qualified Code(s): R10.31 - Right lower quadrant pain Condition: Stable Disposition: HOME, SELF-CARE Instructions: Antinausea Medication ([facility]), Abdominal Pain ([facility]) Additional Instructions: Please return to the emergency department if you have any worsening, or concern of your symptoms. Please return to the emergency department if you develop chest pain, difficulty breathing, severe abdominal pain, or ongoing vomiting. Please follow-up with your primary care physician in 2-3 days and any other recommended physicians. If prescribed, take all medications as directed. If you have any questions or concerns do not hesitate to return the emergency department for evaluation. [] Prescriptions: Dicyclomine HCl [Bentyl 20 mg Tablet] 20 mg PO QID PRN #40 tablet PRN Reason: Pain Scale Of 4 Ondansetron [Zofran Odt 4 mg Tablet] 1 tab PO Q4H PRN #15 tab.rapdis PRN Reason: For Nausea/Vomiting Referrals: ROSEMARIE GEORGE FNP [Primary Care Provider] - Follow up in 3-5 days
--- NOTE | 2018-07-23 09:48 | RADIOLOGY REPORT (SQ) ---
EXAM DESCRIPTION: CT ABD/PELVIS NO ORAL OR IV COMPLETED DATE/TIME: 07/23/2018 9:23 am REASON FOR STUDY: right flank pain, RLQ pain COMPARISON: CT abdomen pelvis 07/03/2018, 08/07/2016 TECHNIQUE: CT scan of the abdomen and pelvis performed without intravenous or oral contrast. Images reviewed with lung, soft tissue, and bone windows. Reconstructed coronal and sagittal MPR images revi ewed. All images stored on PACS. All CT scanners at this facility use dose modulation, iterative reconstruction, and/or weight based d osing when appropriate to reduce radiation dose to as low as reasonably achievable (ALARA). [facility]: Dose Right [facility]: CareDose [facility]: Dose Right [facility]: Teradose 4D [facility]: Smart Technologies RADIATION DOSE: CT Rad equipment meets quality standard of care and radiation dose reduction techniq ues were employed. CTDIvol: 17.3 mGy. DLP: 991 mGy-cm.mGy. LIMITATIONS: None. FINDINGS: LOWER CHEST: Small hiatal hernia. No nodules or infiltrates. NON-CONTRASTED LIVER, SPLEEN, ADRENALS: Evaluation limited by lack of IV contrast. No identified sign ificant masses. PANCREAS: No masses. No peripancreatic inflammatory changes. GALLBLADDER: No identified stones by CT criteria. No inflammatory changes to suggest cholecystitis. RIGHT KIDNEY AND URETER: No suspicious masses. Assessment limited by lack of IV contrast. Medullary nephrocalcinosis with multiple right-sided intrarenal collecting system stones measuring less than 5 mm size. Stone density is about 460 Hounsfield units No hydronephrosis or hydroureter. LEFT KIDNEY AND URETER: No suspicious masses. Assessment limited by lack of IV contrast. Diffuse cor tical atrophy left kidney. Medullary nephrocalcinosis with multiple left-sided intrarenal collecting system stones less than 5 mm size. Stone density about 590 Hounsfield units No hydronephrosis or hydroureter. AORTA AND RETROPERITONEUM: No aneurysm. No retroperitoneal masses or adenopathy. BOWEL AND PERITONEAL CAVITY: No obvious masses or inflammatory changes. No free fluid. APPENDIX: Normal. PELVIS, BLADDER, AND ABDOMINAL WALL:No abnormal masses. No free fluid. Bladder normal. BONES: No significant findings. OTHER: No other significant finding. IMPRESSION: No obstructive urinary stones on today's exam. Bilateral intrarenal nonobstructive calc rafael are present. No hydronephrosis or hydroureter COMMENT: Quality ID # [id number]: Final reports with documentation of one or more dose reduction techniques (e.g., Automated exposure control, adjustment of the mA and/or kV according to patient size, use of iterative reconstruction technique) TECHNICAL DOCUMENTATION: JOB ID: [id number] [employer]- All Rights Reserved Reading location - IP/workstation name: [email or web address] [id number]
[2018-07-23 11:50] VITALS: BP 115/62
== END 2018-07-23 11:40 | disposition home or self-care (01) ==
LOC: ER 20:45
DX: N20.0 Calculus of kidney (principal); R10.31 Right lower quadrant pain; R19.7 Diarrhea, unspecified; R11.2 Nausea with vomiting, unspecified; R10.813 Right lower quadrant abdominal tenderness; R10.811 Right upper quadrant abdominal tenderness; F17.200 Nicotine dependence, unspecified, uncomplicated; Z90.49 Acquired absence of other specified parts of digestive tract
CPT/HCPCS: 93005; 99285; 96361; 96374; 96375; 36415; 87086; 84702; 83690; 85025; 80053; 81001; 74018; 74176; 93010; J2270; J2405

== ENCOUNTER 2018-10-03 08:48 | Emergency (ER) | payer OTHER, MEDICARE ==
--- NOTE | 2018-10-03 09:45 | ER Document Report ---
ED General - General Chief Complaint: Vaginal Bleeding Stated Complaint: CRAMPING/BLEEDING Time Seen by Provider: 10/03/18 09:41 Mode of Arrival: Ambulatory Information source: Patient TRAVEL OUTSIDE OF THE [place] IN LAST 30 DAYS: No - HPI Patient complains to provider of: Cramping Onset: Other - 32-year-old female that presents for evaluation of abdominal cramping pelvic pain with spotting after having been seen yesterday for a standard checkup at approximately 14 weeks gestation being told that she did not have a heartbeat and that likely she would need a D&C as she had had a missed miscarriage. She was told to come back to the hospital in case of any pelvic cramping or bleeding. She also notes that she is having some swelling in her tonsils and fullness in the throat. She is not take anything to try and help with this, nothing is made it better or worse. - Related Data Allergies/Adverse Reactions: Sulfa (Sulfonamide Antibiotics) Allergy (Verified 10/03/18 08:49) tramadol Allergy (Verified 10/03/18 08:49) Past Medical History - General Information source: Patient - Social History Smoking Status: Current Every Day Smoker Family History: Reviewed & Not Pertinent Patient has suicidal ideation: No Patient has homicidal ideation: No Neurological Medical History: Reports: Hx Migraine Renal/ Medical History: Reports: Hx Kidney Stones. Denies: Hx Peritoneal Dialysis Psychiatric Medical History: Reports: Hx Anxiety, Hx Attention Deficit Hyperactivity Disorder, Hx Bipolar Disorder, Hx Depression Past Surgical History: Reports: Hx Section, Hx Cholecystectomy, Hx Genitourinary Surgery - stones, Hx Kidney (Renal Surgery) - stones - Immunizations Immunizations up to date: Yes Hx Diphtheria, Pertussis, Tetanus Vaccination: Yes Review of Systems - Review of Systems -: Yes All other systems reviewed and negative Physical Exam - Vital signs Vitals: Temp Pulse Resp BP Pulse Ox 98.5 F 116 H 20 160/88 H 99 10/03/18 08:49 10/03/18 08:49 10/03/18 08:49 10/03/18 08:49 10/03/18 08:49 - General General appearance: Appears well In distress: None - HEENT Head: Normocephalic Eyes: Normal Conjunctiva: Normal Cornea: Normal Extraocular movements intact: Yes Eyelashes: Normal Pupils: PERRL - Respiratory Respiratory status: No respiratory distress Chest status: Nontender Breath sounds: Normal Chest palpation: Normal - Cardiovascular Rhythm: Regular Heart sounds: Normal auscultation Murmur: No - Abdominal Inspection: Gravid female Distension: No distension Tenderness: Tender - Back Back: Normal, Nontender - Extremities General upper extremity: Normal inspection, Nontender, Normal color, Normal ROM , Normal temperature General lower extremity: Normal inspection, Nontender, Normal color, Normal ROM , Normal temperature, Normal weight bearing. No: Cathryn's sign - Neurological Neuro grossly intact: Yes Cognition: Normal Orientation: AAOx4 Weatherby Coma Scale Eye Opening: Spontaneous Weatherby Coma Scale Verbal: Oriented Weatherby Coma Scale Motor: Obeys Commands Weatherby Coma Scale Total: 15 Speech: Normal Motor strength normal: LUE, RUE, LLE, RLE Sensory: Normal - Psychological Associated symptoms: Normal affect, Normal mood Course - Re-evaluation Re-evalutation: 32-year-old female with a 12-week status post ultrasound yesterday which identified loss of cardiac activity. She had some cramping and spotting last night which prompted her to come the emergency room. We will obtain CBC and ultrasound of the fetus with a type and screen in case of need for intervention. Ultrasound does demonstrate again a demise at approximately 12 weeks. Patient has a stopped bleeding while in the emergency department. Her CBC is stable she is overall well-appearing with a benign abdominal examination. In addition she did complain about her tonsils and sore throat. Examination she is an examination consistent with pharyngitis, there is no suggestion of an obvious HELP DESK INTERN. I believe she would benefit from conservative measures related to her pharyngitis. 10/03/18 12:30 Spoke to on-call tail board worker Dr. Valladares. He agrees to see the patient first thing tomorrow but should give her bleeding return precautions. Patient agrees to current course will follow up with tail board worker in the morning at 8 AM for consideration of D&C. She is given return precautions particularly bleeding precautions. - Vital Signs Vital signs: Temp Pulse Resp BP Pulse Ox 98.4 F 85 20 115/61 97 10/03/18 12:33 10/03/18 12:33 10/03/18 12:33 10/03/18 12:33 10/03/18 12:33 - Laboratory Result Diagrams: 10/03/18 09:45 10/03/18 09:45 Laboratory results interpreted by me: 10/03/18 10/03/18 09:45 09:45 WBC 11.1 H Calcium 10.5 H Beta HCG, Quant 83113.00 H Discharge - Discharge Clinical Impression: Missed Pharyngitis Qualifiers: Pharyngitis/tonsillitis etiology: unspecified etiology Qualified Code(s): J02.9 - Acute pharyngitis, unspecified Condition: Stable Disposition: HOME, SELF-CARE Instructions: Sore Throat ([facility]) Additional Instructions: Your seen today in the emergency department for your pelvic cramping and bleeding. You had an evaluation including a physical exam, ultrasound and blood work. It appears that you have had a loss of your at 12 weeks. You need to see a operations manager/coordinator tomorrow, Dr. Valladares in clinic at 8 AM. Call the number [phone] to schedule your appointment or show up at 8 AM. Return for any worsening bleeding, cramping, passage of clots, if you have for pads changed in less than 4 hours he should return. If you begin to have lightheadedness chest pains or other symptoms he should return. He should use a saline gargles and brought to help with your throat pain you can also used Tylenol as well as Motrin. Referrals: ROSEMARIE GEORGE FNP [Primary Care Provider] - Follow up as needed
[2018-10-03 10:32] LABS: ABSOLUTE EOSINOPHILS # (AUTO) 0.2 10^3/uL (0.0-0.6); ABSOLUTE LYMPHOCYTES (AUTO) 2.3 10^3/uL (0.5-4.7); ABSOLUTE MONOCYTES (AUTO) 0.7 10^3/uL (0.1-1.4); ABSOLUTE NEUT (AUTO) 7.9 10^3/uL (1.7-8.2); BASOPHILS % (AUTO) 0.4 % (0-2); EOSINOPHILS % (AUTO) 1.8 % (0-6); HEMATOCRIT 38.1 % (36.0-47.0); HEMOGLOBIN 13.1 g/dL (12.0-15.5); MEAN CORPUSCULAR HEMOGLOBIN 31.1 pg (27.0-33.4); MEAN CORPUSCULAR HGB CONC 34.5 g/dL (32.0-36.0); MEAN CORPUSCULAR VOLUME 90 fl (80-97); PLATELET COUNT 260 10^3/uL (150-450); RED BLOOD COUNT 4.23 10^6/uL (3.72-5.28); RED CELL DISTRIBUTION WIDTH 12.7 % (11.5-14.0); SEGMENTED NEUTROPHILS % (AUTO) 70.8 % (42-78); TOTAL CELLS COUNTED % (AUTO) 100 %; WHITE BLOOD COUNT 11.1 10^3/uL (4.0-10.5)
[2018-10-03 10:36] LABS: INTERNATIONAL RATION (INR) 0.87; PROTHROMBIN TIME 12.3 SEC (11.4-15.4)
[2018-10-03 10:37] LABS: PARTIAL THROMBOPLASTIN TIME 31.9 SEC (23.5-35.8)
[2018-10-03 10:47] LABS: ANION GAP 12 (5-19); BLOOD UREA NITROGEN 9 mg/dL (7-20); CALCIUM 10.5 mg/dL (8.4-10.2); CARBON DIOXIDE 23 mmol/L (22-30); CHLORIDE 103 mmol/L (98-107); GLUCOSE 93 mg/dL (75-110); POTASSIUM 4.6 mmol/L (3.6-5.0); SODIUM 138.4 mmol/L (137-145)
--- NOTE | 2018-10-03 11:29 | RADIOLOGY REPORT (SQ) ---
EXAM DESCRIPTION: U/S 1TRIMESTER/1GEST W/DOPPLER COMPLETED DATE/TIME: 10/03/2018 10:54 am REASON FOR STUDY: concern for missed COMPARISON: None. TECHNIQUE: Transabdominal static and realtime grayscale images acquired of the pelvis. Additional se lected spectral and color Doppler images recorded. All images stored on PACs. bHCG: Not available. CLINICAL DATES: EGA LIMITATIONS: None. FINDINGS: There is an intrauterine with crown-rump length 5.3 cm. No cardiac activi ty. Cervix is closed. IMPRESSION: demise at 12 weeks. EGA 12 weeks. Trimester of : First - 0 to 13 weeks. TECHNICAL DOCUMENTATION: JOB ID: [id number] [email or web address]- All Rights Reserved Reading location - IP/workstation name: [email or web address]
[2018-10-03 13:44] VITALS: BP 115/61
== END 2018-10-03 13:03 | disposition home or self-care (01) ==
LOC: ER 08:48
DX: O02.1 Missed abortion (principal); J02.9 Acute pharyngitis, unspecified; R10.2 Pelvic and perineal pain; F17.200 Nicotine dependence, unspecified, uncomplicated; Z88.2 Allergy status to sulfonamides; Z88.5 Allergy status to narcotic agent
CPT/HCPCS: 36415; 76801; 80048; 84702; 85025; 85610; 85730; 86850; 86900; 86901; 93976; 99284

== ENCOUNTER 2018-10-04 09:02 | Day surgery (SDC) | payer MEDICARE, OTHER ==
[2018-10-04 09:43] LABS: APPEARANCE,URINE SLIGHTLY-CLOUDY; BILIRUBIN,URINE NEGATIVE (NEGATIVE); COLOR,URINE YELLOW; GLUCOSE, URINE NEGATIVE (NEGATIVE); KETONES,URINE NEGATIVE (NEGATIVE); LEUKOCYTE ESTERASE,URINE SMALL (NEGATIVE); NITRITE,URINE NEGATIVE (NEGATIVE); PROTEIN,URINE NEGATIVE (NEGATIVE); URINE SPECIFIC GRAVITY 1.013; UROBILINOGEN,URINE NEGATIVE mg/dL (<2.0)
[2018-10-04 09:47] LABS: HEMATOCRIT 37.9 % (36.0-47.0); HEMOGLOBIN 13.2 g/dL (12.0-15.5); MEAN CORPUSCULAR HEMOGLOBIN 31.2 pg (27.0-33.4); MEAN CORPUSCULAR HGB CONC 34.7 g/dL (32.0-36.0); MEAN CORPUSCULAR VOLUME 90 fl (80-97); PLATELET COUNT 247 10^3/uL (150-450); RED BLOOD COUNT 4.22 10^6/uL (3.72-5.28); RED CELL DISTRIBUTION WIDTH 12.7 % (11.5-14.0); WHITE BLOOD COUNT 11.2 10^3/uL (4.0-10.5)
[2018-10-04] MEDS ORDERED: DOXYCYCLINE HYCLATE 100 MG in DEXTROSE 5%-WATER 250 ML IV PRN (09:47)
[2018-10-04] MEDS ORDERED: LIDOCAINE 2% INJ-PF (20 MG/ML) 10 ML AMPUL ONE (11:43)
[2018-10-04] MEDS ORDERED: KETAMINE HCL INJ 500 MG/10 ML VIAL ONE (11:43)
[2018-10-04] MEDS ORDERED: FENTANYL CITRATE INJ/PF 100 MCG/2 ML AMPUL ONE (11:43)
[2018-10-04] MEDS ORDERED: PROPOFOL INJ 200 MG/20 ML VIAL IV ONE (11:44)
[2018-10-04] MEDS ORDERED: ACETAMINOPHEN 1,000 MG/100 ML RTUPB IV ONE (11:44)
[2018-10-04] MEDS ORDERED: MIDAZOLAM 2 MG/2 ML INJ ONE (11:44)
[2018-10-04] MEDS ORDERED: IBUPROFEN 800 MG TABLET PO PRN (12:29)
[2018-10-04] MEDS ORDERED: OXYCODONE-ACETAMINOPHEN 5-325 MG TABLET PO PRN ×2 (12:29)
[2018-10-04] MEDS ORDERED: KETOROLAC TROMETHAMINE INJ/PF 30 MG/1 ML SDV IV PRN (12:29)
[2018-10-04] MEDS ORDERED: RINGERS SOLUTION,LACTATED 1,000 ML IV PRN (12:29)
--- NOTE | 2018-10-04 12:33 | Operative Report ---
Operative Report DATE OF SURGERY: 10/04/18 PREOPERATIVE DIAGNOSIS: Missed AB POSTOPERATIVE DIAGNOSIS: Same OPERATION: Suction D&C SURGEON: [place] ANESTHESIA: GA TISSUE REMOVED OR ALTERED: Uterine contents COMPLICATIONS: None ESTIMATED BLOOD LOSS: 50 cc INTRAOPERATIVE FINDINGS: Uterine sound to 11 cm before and after the case PROCEDURE: Patient was taken to the OR and placed in supine position. General anesthesia was induced. She is placed in dorsolithotomy position using Adan stirrups. Her perineum and vagina were prepared and draped in sterile fashion. Her bladder was drained with a red rubber catheter. A weighted speculum was placed in the vagina and the anterior lip cervix grasped with a tenaculum. The uterus sounded to 11 cm before and after the case. The cervix was dilated using Hegar dilators. A size 12 suction curette was used to evacuate the uterine contents. A gentle sharp curettage at the end of the case revealed no retained products. All instruments were removed. She is placed back in supine position taken recovery room stable condition.
--- NOTE | 2018-10-04 12:36 | Discharge Summary ---
Discharge Summary (SDC) - Discharge Final Diagnosis: Missed AB Date of Surgery: 10/04/18 Discharge Date: 10/04/18 Condition: Good Treatment or Instructions: Pelvic rest, follow-up in 2 weeks Prescriptions: Oxycodone HCl/Acetaminophen [Percocet 5-325 mg Tablet] 1 tab PO Q4HP PRN #20 tablet PRN Reason: Misoprostol [Cytotec 0.2 mg Tablet] 0.2 mg PO Q4 #4 tablet Referrals: ROSEMARIE GEORGE FNP [Primary Care Provider] - Discharge Diet: Regular Discharge Activity: Balance Activity w/Rest, Pelvic Rest Report the Following to Your Physician Immediately: Fever over 101 Degrees, Unusual Bleeding
[2018-10-04] MEDS ORDERED: FENTANYL CITRATE INJ/PF 100 MCG/2 ML AMPUL IV PRN ×3 (12:41)
[2018-10-04] MEDS ORDERED: ONDANSETRON HCL INJ/PF 4 MG/2 ML SDV IV PRN (12:41)
[2018-10-04] MEDS ORDERED: DIPHENHYDRAMINE HCL 50 MG/ML VIAL IV PRN (12:41)
[2018-10-04] MEDS ORDERED: MEPERIDINE HCL/PF INJ 25 MG/1 ML DISP.SYRIN IV PRN (12:41)
[2018-10-04] MEDS ORDERED: PROMETHAZINE HCL INJ 25 MG/1 ML VIAL IV PRN ×2 (12:41)
[2018-10-04] MEDS ORDERED: MORPHINE SULFATE 10 MG/ML INJ IV PRN (12:41)
[2018-10-04] MEDS: FENTANYL CITRATE INJ/PF 100 MCG/2 ML AMPUL ONE ×2 (12:43→12:48)
[2018-10-04] MEDS ORDERED: MISOPROSTOL 0.2 MG TABLET ONE (13:00)
[2018-10-04] MEDS ORDERED: OXYCODONE-ACETAMINOPHEN 5-325 MG TABLET ONE (13:25)
[2018-10-04] MEDS ORDERED: KETOROLAC TROMETHAMINE 60 MG/2 ML SDV ONE (13:51)
[2018-10-04] MEDS ORDERED: ONDANSETRON HCL INJ/PF 4 MG/2 ML SDV ONE (13:51)
[2018-10-04] MEDS ORDERED: DEXAMETHASONE SOD PHOSPHATE INJ 4 MG/1 ML VIAL ONE (13:51)
[2018-10-04] MEDS ORDERED: METOCLOPRAMIDE HCL INJ/PF 10 MG/2 ML SDV ONE (13:51)
[2018-10-04] MEDS ORDERED: MISOPROSTOL 0.2 MG TABLET PO SCH (14:00)
[2018-10-04 14:54] VITALS: BP 116/78
== END 2018-10-04 14:35 | disposition home or self-care (01) ==
LOC: OROUT 09:02
PROVIDERS: ATTEND Obstetrics & Gynecology
DX: O02.1 Missed abortion (principal); Z79.899 Other long term (current) drug therapy; F17.210 Nicotine dependence, cigarettes, uncomplicated; Z88.2 Allergy status to sulfonamides; F32.9 Major depressive disorder, single episode, unspecified; K58.9 Irritable bowel syndrome, unspecified
CPT/HCPCS: 36415; 85027; 81025; 81001; 88305 ×2; 59820; J2250; A9270 ×2; J1100; J3490 ×2; J1885; J3010; J2765; J2405; J7060; J2704; J0131; 1965

== ENCOUNTER 2018-10-12 11:40 | Emergency (ER) | payer MEDICARE, OTHER ==
[2018-10-12] MEDS ORDERED: KETOROLAC TROMETHAMINE INJ/PF 30 MG/1 ML SDV IV ONE (12:14)
[2018-10-12] MEDS ORDERED: ONDANSETRON HCL INJ/PF 4 MG/2 ML SDV IV ONE (12:14)
--- NOTE | 2018-10-12 12:17 | ER Document Report ---
ED Medical Screen (RME) - General Chief Complaint: Abdominal Pain Stated Complaint: RIGHT UPPER QUADRANT PAIN,DIZZY Time Seen by Provider: 10/12/18 12:14 Notes: 32 years old female presents today with right upper quadrant pain of sudden onset. She had a miscarriage 2 weeks ago. Followed by D&C. The pain is persistent With on and off exacerbation. Came upon after eating fried chicken. Status post cholecystectomy. She has extensive medical history including multiple kidney stones, gallstones, had gallstone-induced bowel obstruction in the past, went into sepsis, intubated , shocked. Was in coma for about 9 days at [facility]. She has recovered all these things currently. Right upper quadrant tenderness noted TRAVEL OUTSIDE OF THE [place] IN LAST 30 DAYS: No - Related Data Allergies/Adverse Reactions: Sulfa (Sulfonamide Antibiotics) Allergy (Verified 10/12/18 11:41) tramadol Allergy (Verified 10/12/18 11:41) Past Medical History - Social History Family history: Reviewed & Not Pertinent - Past Medical History Cardiac Medical History: Denies: Hx Coronary Artery Disease, Hx Heart Attack, Hx Hypertension Pulmonary Medical History: Denies: Hx Asthma, Hx Bronchitis, Hx COPD, Hx Pneumonia Neurological Medical History: Reports: Hx Migraine. Denies: Hx Cerebrovascular Accident, Hx Seizures Renal/ Medical History: Reports: Hx Kidney Stones. Denies: Hx Peritoneal Dialysis Musculoskeltal Medical History: Denies Hx Arthritis Psychiatric Medical History: Reports: Hx Anxiety, Hx Attention Deficit Hyperactivity Disorder, Hx Bipolar Disorder, Hx Depression Past Surgical History: Reports: Hx Section, Hx Cholecystectomy, Hx Genitourinary Surgery - stones, Hx Gynecologic Surgery - removal of fetus, Hx Kidney (Renal Surgery) - stones - Immunizations Immunizations up to date: Yes Hx Diphtheria, Pertussis, Tetanus Vaccination: Yes Physical Exam - Vital signs Vitals: Temp Pulse Resp BP Pulse Ox 98.8 F 120 H 14 133/74 H 98 10/12/18 11:44 10/12/18 11:44 10/12/18 11:44 10/12/18 11:44 10/12/18 11:44 Course - Vital Signs Vital signs: Temp Pulse Resp BP Pulse Ox 98.8 F 120 H 14 133/74 H 98 10/12/18 11:44 10/12/18 11:44 10/12/18 11:44 10/12/18 11:44 10/12/18 11:44 Doctor's Discharge - Discharge Referrals: ROSEMARIE GEORGE FNP [Primary Care Provider] - Follow up as needed
[2018-10-12 12:58] LABS: ABSOLUTE BASOPHILS # (AUTO) 0.1 10^3/uL (0.0-0.2); ABSOLUTE EOSINOPHILS # (AUTO) 0.2 10^3/uL (0.0-0.6); ABSOLUTE MONOCYTES (AUTO) 0.5 10^3/uL (0.1-1.4); ABSOLUTE NEUT (AUTO) 6.3 10^3/uL (1.7-8.2); BASOPHILS % (AUTO) 0.6 % (0-2); EOSINOPHILS % (AUTO) 2.3 % (0-6); HEMATOCRIT 39.1 % (36.0-47.0); HEMOGLOBIN 13.5 g/dL (12.0-15.5); LYMPHOCYTES % (AUTO) 29.3 % (13-45); MEAN CORPUSCULAR HEMOGLOBIN 31.3 pg (27.0-33.4); MEAN CORPUSCULAR HGB CONC 34.5 g/dL (32.0-36.0); MEAN CORPUSCULAR VOLUME 91 fl (80-97); MONOCYTES % (AUTO) 5.4 % (3-13); PLATELET COUNT 299 10^3/uL (150-450); SEGMENTED NEUTROPHILS % (AUTO) 62.4 % (42-78); TOTAL CELLS COUNTED % (AUTO) 100 %; WHITE BLOOD COUNT 10.1 10^3/uL (4.0-10.5)
[2018-10-12 13:04] LABS: APPEARANCE,URINE CLEAR; BILIRUBIN,URINE NEGATIVE (NEGATIVE); COLOR,URINE YELLOW; GLUCOSE, URINE NEGATIVE (NEGATIVE); KETONES,URINE NEGATIVE (NEGATIVE); LEUKOCYTE ESTERASE,URINE MODERATE (NEGATIVE); NITRITE,URINE NEGATIVE (NEGATIVE); PROTEIN,URINE NEGATIVE (NEGATIVE); URINE SPECIFIC GRAVITY 1.014; UROBILINOGEN,URINE NEGATIVE mg/dL (<2.0)
--- NOTE | 2018-10-12 13:24 | RADIOLOGY REPORT (SQ) ---
EXAM DESCRIPTION: U/S ABDOMEN LIMITED W/O DOP COMPLETED DATE/TIME: 10/12/2018 1:06 pm REASON FOR STUDY: Abdominal pain COMPARISON: 10/03/2018 TECHNIQUE: Dynamic and static grayscale images acquired of the abdomen and recorded on PACS. Melquiadeso yecenia selected color Doppler and spectral images recorded. LIMITATIONS: None. FINDINGS: PANCREAS: No masses. Visualized pancreatic duct normal caliber. LIVER: No masses. Echotexture normal. LIVER VASCULATURE: Normal directional flow of the main portal vein and hepatic veins. GALLBLADDER: Surgically absent. ULTRASOUND-DETECTED WISE'S SIGN: Negative. INTRAHEPATIC DUCTS AND COMMON DUCT: CBD and intrahepatic ducts normal caliber. No filling defects. INFERIOR VENA CAVA: Normal flow. AORTA: No aneurysm. RIGHT KIDNEY: Normal size. Normal echogenicity. No solid or suspicious masses. No hydronephrosis. M ultiple redemonstrated nonobstructive calculi. PERITONEAL AND RIGHT PLEURAL SPACE: No ascites or effusions. OTHER: No other significant findings. IMPRESSION: 1. Postoperative findings of cholecystectomy. No ultrasound findings of the right upper quadrant to explain acute pain. Consider CT or MRI to further evaluate unexplained abdominal pain. 2. Multiple nonobstructive right renal calculi as seen on prior examination. TECHNICAL DOCUMENTATION: JOB ID: [id number] [email or web address]- All Rights Reserved Reading location - IP/workstation name: [email or web address]
[2018-10-12 13:34] LABS: ALANINE AMINOTRANSFERASE 28 U/L (9-52); ALBUMIN 4.7 g/dL (3.5-5.0); ALKALINE PHOSPHATASE 118 U/L (38-126); ANION GAP 13 (5-19); ASPARTATE AMINO TRANSFERASE 31 U/L (14-36); BILIRUBIN,DIRECT 0.3 mg/dL (0.0-0.4); BILIRUBIN,TOTAL 0.4 mg/dL (0.2-1.3); BLOOD UREA NITROGEN 13 mg/dL (7-20); CARBON DIOXIDE 25 mmol/L (22-30); CHLORIDE 103 mmol/L (98-107); GLUCOSE 92 mg/dL (75-110); LIPASE 38.8 U/L (23-300); POTASSIUM 4.7 mmol/L (3.6-5.0); SODIUM 140.6 mmol/L (137-145); TOTAL PROTEIN 7.9 g/dL (6.3-8.2)
--- NOTE | 2018-10-12 13:46 | RADIOLOGY REPORT (SQ) ---
EXAM DESCRIPTION: KUB/ABDOMEN (SINGLE VIEW) COMPLETED DATE/TIME: 10/12/2018 1:22 pm REASON FOR STUDY: Abdominal pain COMPARISON: 07/23/2018 NUMBER OF VIEWS: One view. TECHNIQUE: Supine radiographic image of the abdomen acquired. LIMITATIONS: None. FINDINGS: BOWEL GAS PATTERN: Paucity of small bowel gas. No obvious fluid distended loops of small bowel to suggest obstruction. Scattered colonic gas and stool present to the splenic flexure. CALCIFICATIONS: Numerous bilateral small renal calcifications. SOFT TISSUES: No gross mass or suggestion of organomegaly. HARDWARE: None in the abdomen. BONES: No acute fracture. No worrisome bone lesions. OTHER: No other significant finding. IMPRESSION: 1. Paucity of small bowel gas, a nonspecific pattern. No obvious fluid distended loops of small bowel to suggest obstruction. Scattered colonic gas and stool present to the splenic flexu re. No large burden of stool in the colon. No free air in the abdomen on supine radiographs. 2. Numerous bilateral small renal calcifications. TECHNICAL DOCUMENTATION: JOB ID: [id number] [email or web address]- All Rights Reserved Reading location - IP/workstation name: [email or web address]
[2018-10-12] MEDS ORDERED: NORMAL SALINE 1000 ML 1,000 ML IV ONE (14:23)
--- NOTE | 2018-10-12 14:23 | ER Document Report ---
ED GI/ - General Chief Complaint: Abdominal Pain Stated Complaint: RIGHT UPPER QUADRANT PAIN,DIZZY Time Seen by Provider: 10/12/18 12:14 Mode of Arrival: Ambulatory Information source: Patient Notes: 35-year-old 32-year-old female with past medical history as recorded presents today with the onset on 2 hours prior to arrival some right lower rib pain with some shortness of breath. Patient is status post D&C of a missed on October 04. She states she has no lower abdominal discomfort and the vaginal bleeding has somewhat subsided. Patient does not have a gallbladder. Patient denies any nausea, vomiting, or fevers. She denies any flank pain or dysuria. TRAVEL OUTSIDE OF THE [place] IN LAST 30 DAYS: No - HPI Patient complains to provider of: Other - See above Onset: Other - See above Timing/Duration: Constant Quality of pain: Achy Severity at maximum: Moderate Severity in ED: Moderate Pain Level: 3 Context: Other - See above Location: Other - See above Vaginal bleeding (Compared to normal period): Spotting Associated symptoms: Other - See above Exacerbated by: Other - See above Relieved by: Other - See above Similar symptoms previously: No Recently seen / treated by doctor: No - Related Data Allergies/Adverse Reactions: Sulfa (Sulfonamide Antibiotics) Allergy (Verified 10/12/18 11:41) tramadol Allergy (Verified 10/12/18 11:41) Past Medical History - Social History Smoking Status: Unknown if Ever Smoked Family History: Reviewed & Not Pertinent Patient has suicidal ideation: No Patient has homicidal ideation: No - Past Medical History Cardiac Medical History: Denies: Hx Coronary Artery Disease, Hx Heart Attack, Hx Hypertension Pulmonary Medical History: Denies: Hx Asthma, Hx Bronchitis, Hx COPD, Hx Pneumonia Neurological Medical History: Reports: Hx Migraine. Denies: Hx Cerebrovascular Accident, Hx Seizures Renal/ Medical History: Reports: Hx Kidney Stones. Denies: Hx Peritoneal Dialysis Musculoskeletal Medical History: Denies Hx Arthritis Psychiatric Medical History: Reports: Hx Anxiety, Hx Attention Deficit Hyperactivity Disorder, Hx Bipolar Disorder, Hx Depression Past Surgical History: Reports: Hx Section, Hx Cholecystectomy, Hx Genitourinary Surgery - stones, Hx Gynecologic Surgery - removal of fetus, Hx Kidney (Renal Surgery) - stones - Immunizations Immunizations up to date: Yes Hx Diphtheria, Pertussis, Tetanus Vaccination: Yes Review of Systems - Review of Systems Constitutional: denies: Fever EENT: denies: Eye discharge, Nose discharge Respiratory: Cough. denies: Short of breath Gastrointestinal: denies: Abdominal pain, Vomiting Genitourinary: denies: Dysuria Musculoskeletal: denies: Leg swelling Skin: Other - no hives. denies: Rash Neurological/Psychological: Other - no slurred speech -: Yes All other systems reviewed and negative Physical Exam - Vital signs Vitals: Temp Pulse Resp BP Pulse Ox 98.8 F 120 H 14 133/74 H 98 10/12/18 11:44 10/12/18 11:44 10/12/18 11:44 10/12/18 11:44 10/12/18 11:44 Notes: Reviewed vital signs and nursing note as charted by RN. CONSTITUTIONAL: Alert and oriented and responds appropriately to questions. Well -appearing; well-nourished HEAD: Normocephalic; atraumatic EYES: Sclerae non-icteric ENT: Normal nose; no rhinorrhea; moist mucous membranes; pharynx without lesions noted NECK: Supple without meningismus; non-tender CARD: Regular rate and rhythm; no murmurs; symmetric distal pulses RESP: Normal chest excursion without splinting or tachypnea; breath sounds clear and equal bilaterally; no wheezes, no rhonchi, no rales; no tenderness to palpation of the chest wall ABD/GI: Normal bowel sounds; non-distended; soft, non-tender to deep palpation of all 4 quadrants of the abdomen BACK: The back appears normal and is non-tender to palpation EXT: Normal ROM in all joints; non-tender to palpation; no edema SKIN: No acute lesions noted NEURO: CN 2-12 intact; 5/5 bilateral upper and lower extremity strength with sensation intact to light touch PSYCH: The patient's mood and manner are appropriate. Grooming and personal hygiene are appropriate. Course - Re-evaluation Re-evalutation: Given the above history and physical examination, we will obtain basic labs, liver panel and lipase, troponin and EKG, place the patient on the monitor. In triage there was an ultrasound of the right upper quadrant as well as an x-ray of the chest ordered. 10/12/18 14:23 Labs as recorded. Troponin is pending. Ultrasound and x-ray as recorded. 10/12/18 15:12 Heart rate has improved. X-ray abdomen is unremarkable. CT scan of the chest as recorded. Patient does has no flank pain. Patient has no lower abdominal tenderness. Urine analysis as recorded. White blood cell count and temperature as recorded. Heart rate is currently 96. Patient is not a diabetic. No obvious hydronephrosis present. Given the above history and physical examination, I do believe that the patient needs to see a urologist. I will send a urine culture and start the patient on antibiotics with strict return precautions. - Vital Signs Vital signs: Temp Pulse Resp BP Pulse Ox 98.8 F 120 H 14 133/74 H 98 10/12/18 11:44 10/12/18 11:44 10/12/18 11:44 10/12/18 11:44 10/12/18 11:44 - Laboratory Result Diagrams: 10/12/18 12:37 10/12/18 12:37 Laboratory results interpreted by me: 10/12/18 12:23 Urine Blood MODERATE H Ur Leukocyte Esterase MODERATE H Discharge - Discharge Clinical Impression: Right upper quadrant abdominal pain, Right-sided chest pain UTI (urinary tract infection) Qualifiers: Urinary tract infection type: site unspecified Hematuria presence: without hematuria Qualified Code(s): N39.0 - Urinary tract infection, site not specified Condition: Good Disposition: HOME, SELF-CARE Additional Instructions: Comeback immediately with any increased pain, change in location or quality of pain, fevers or vomiting, or any other acute problems. Please follow-up with the primary care provider as well as possibly the urologist we have referred you to please take the antibiotics as discussed. Prescriptions: Cephalexin Monohydrate [Keflex 500 mg Capsule] 500 mg PO Q6H 7 Days #28 capsule Metoclopramide HCl [Reglan 10 mg Tablet] 1 - 2 tab PO ASDIR PRN #12 tablet PRN Reason: Oxycodone HCl/Acetaminophen [Percocet 5-325 mg Tablet] 1 - 2 tab PO ASDIR PRN # 15 tablet PRN Reason: Referrals: ROSEMARIE GEORGE FNP [Primary Care Provider] - Follow up as needed UMBERTO VELASQUEZ MD [NO LOCAL MD] - Follow up as needed
[2018-10-12] MEDS ORDERED: MORPHINE SULFATE 10 MG/ML INJ IV ONE (14:24)
[2018-10-12] MEDS ORDERED: METOCLOPRAMIDE HCL INJ/PF 10 MG/2 ML SDV IV ONE (14:56)
--- NOTE | 2018-10-12 15:09 | RADIOLOGY REPORT (SQ) ---
EXAM DESCRIPTION: CTA CHEST COMPLETED DATE/TIME: 10/12/2018 2:55 pm REASON FOR STUDY: 16; Miscarriage 2 weeks ago with RL chest pain/SOB COMPARISON: None. TECHNIQUE: CT scan of the chest performed using helical scanning technique with dynamic intravenous contrast injection. Images reviewed with lung, soft tissue and bone windows. Reconstructed coronal and sagittal MPR images reviewed. Additional 3 dimensional post-processing performed to develop Maximal Intensity Projection images (OR P). All images stored on PACS. All CT scanners at this facility use dose modulation, iterative reconstruction, and/or weight based d osing when appropriate to reduce radiation dose to as low as reasonably achievable (ALARA). [facility]: Dose Right [facility]: CareDose [facility]: Dose Right [facility]: Teradose 4D [facility]: [employer] CONTRAST TYPE AND DOSE: contrast/concentration: Isovue 350.00 mg/ml; Total Contrast Delivered: 86.0 ml; Total Saline Delivered: 80.0 ml Contrast bolus optimized for the pulmonary arteries. Not diagnostic for the aorta. RENAL FUNCTION: GFR > 60. RADIATION DOSE: CT Rad equipment meets quality standard of care and radiation dose reduction techniq ues were employed. CTDIvol: 6.6 - 39.7 mGy. DLP: 1268 mGy-cm. . LIMITATIONS: None. FINDINGS: LUNGS AND PLEURA: No masses, infiltrates, or pneumothorax. No pleural effusions or pleura l calcifications. Bibasilar scar atelectasis and a nonspecific ground-glass opacity of the apical ri ght upper lobe. AORTA AND GREAT VESSELS: No aneurysm. Contrast bolus not optimized for the aorta. HEART: No pericardial effusion. No significant coronary artery calcifications. PULMONARY ARTERIES: No emboli visualized in the main pulmonary arteries or the segmental branches. HILAR AND MEDIASTINAL STRUCTURES: No identified masses or abnormal nodes. HARDWARE: None in the chest. UPPER ABDOMEN: Numerous bilateral nonobstructive renal calculi and/or medullary nephrocalcinosis. THYROID AND OTHER SOFT TISSUES: No masses. No adenopathy. BONES: No acute or significant finding. 3D MIPS: Confirm above findings. OTHER: No other significant finding. IMPRESSION: 1. Negative examination for pulmonary embolism. 2. Nonspecific infectious or inflammatory ground-glass opacity of the apical right upper lobe with b ibasilar scarring or atelectasis. 3. Numerous bilateral nonobstructive renal calculi and/or medullary nephrocalcinosis. Correlate for stone forming metabolic disorder. COMMENT: Quality ID # [id number]: Final reports with documentation of one or more dose reduction techniques (e.g., Automated exposure control, adjustment of the mA and/or kV according to patient size, use of iterative reconstruction technique) TECHNICAL DOCUMENTATION: JOB ID: [id number] [employer]- All Rights Reserved Reading location - IP/workstation name: [email or web address]
[2018-10-12] MEDS ORDERED: CEFTRIAXONE 1 GM/D5W RTU 1 GM/50 ML RTUPB IV ONE (15:13)
[2018-10-12 16:33] VITALS: BP 123/75
--- NOTE | 2018-10-13 07:48 | EKG REPORT ---
SEVERITY:- OTHERWISE NORMAL ECG - SINUS TACHYCARDIA : Confirmed by: Sonam Gunter MD 13-Oct-2018 07:48:14
== END 2018-10-12 16:30 | disposition home or self-care (01) ==
LOC: ER 11:40
DX: N39.0 Urinary tract infection, site not specified (principal); R10.11 Right upper quadrant pain; R42 Dizziness and giddiness; Z88.2 Allergy status to sulfonamides; Z87.442 Personal history of urinary calculi; Z90.49 Acquired absence of other specified parts of digestive tract
CPT/HCPCS: 93005; 36415; 87086; 83690; 85025; 80053; 81001; 84484; 74018; 76705; 71275; 93010; J1885; J2765; J2270; J7030; J0696

== ENCOUNTER 2018-11-01 02:05 | Emergency (ER) | payer MEDICARE, OTHER ==
[2018-11-01 03:10] LABS: ABSOLUTE EOSINOPHILS # (AUTO) 0.2 10^3/uL (0.0-0.6); ABSOLUTE LYMPHOCYTES (AUTO) 2.7 10^3/uL (0.5-4.7); ABSOLUTE MONOCYTES (AUTO) 0.7 10^3/uL (0.1-1.4); ABSOLUTE NEUT (AUTO) 7.9 10^3/uL (1.7-8.2); BASOPHILS % (AUTO) 0.3 % (0-2); EOSINOPHILS % (AUTO) 1.9 % (0-6); HEMATOCRIT 38.2 % (36.0-47.0); HEMOGLOBIN 13.2 g/dL (12.0-15.5); LYMPHOCYTES % (AUTO) 23.6 % (13-45); MEAN CORPUSCULAR HEMOGLOBIN 31.2 pg (27.0-33.4); MEAN CORPUSCULAR HGB CONC 34.5 g/dL (32.0-36.0); MEAN CORPUSCULAR VOLUME 90 fl (80-97); MONOCYTES % (AUTO) 5.8 % (3-13); PLATELET COUNT 206 10^3/uL (150-450); RED BLOOD COUNT 4.22 10^6/uL (3.72-5.28); RED CELL DISTRIBUTION WIDTH 13.1 % (11.5-14.0); SEGMENTED NEUTROPHILS % (AUTO) 68.4 % (42-78); TOTAL CELLS COUNTED % (AUTO) 100 %; WHITE BLOOD COUNT 11.6 10^3/uL (4.0-10.5)
[2018-11-01 03:23] LABS: ALANINE AMINOTRANSFERASE 30 U/L (9-52); ALBUMIN 4.8 g/dL (3.5-5.0); ALKALINE PHOSPHATASE 88 U/L (38-126); ANION GAP 10 (5-19); ASPARTATE AMINO TRANSFERASE 33 U/L (14-36); BILIRUBIN,DIRECT 0.2 mg/dL (0.0-0.4); BILIRUBIN,TOTAL 0.2 mg/dL (0.2-1.3); BLOOD UREA NITROGEN 14 mg/dL (7-20); CALCIUM 9.8 mg/dL (8.4-10.2); CARBON DIOXIDE 22 mmol/L (22-30); CHLORIDE 110 mmol/L (98-107); GLUCOSE 98 mg/dL (75-110); POTASSIUM 4.5 mmol/L (3.6-5.0); SODIUM 141.9 mmol/L (137-145)
[2018-11-01 03:39] LABS: APPEARANCE,URINE CLEAR; BILIRUBIN,URINE NEGATIVE (NEGATIVE); COLOR,URINE STRAW; GLUCOSE, URINE NEGATIVE (NEGATIVE); KETONES,URINE NEGATIVE (NEGATIVE); LEUKOCYTE ESTERASE,URINE TRACE (NEGATIVE); NITRITE,URINE NEGATIVE (NEGATIVE); PROTEIN,URINE NEGATIVE (NEGATIVE); URINE SPECIFIC GRAVITY 1.009; UROBILINOGEN,URINE NEGATIVE mg/dL (<2.0)
[2018-11-01] MEDS ORDERED: NORMAL SALINE 1000 ML 1,000 ML IV ONE (03:39)
[2018-11-01] MEDS ORDERED: KETOROLAC TROMETHAMINE INJ/PF 30 MG/1 ML SDV IV ONE (03:39)
[2018-11-01] MEDS ORDERED: METOCLOPRAMIDE HCL INJ/PF 10 MG/2 ML SDV IV ONE (03:39)
--- NOTE | 2018-11-01 03:43 | ER Document Report ---
ED General - General Chief Complaint: Possible Kidney Stone Stated Complaint: URINARY ISSUE Time Seen by Provider: 11/01/18 03:25 Notes: Patient is a pleasant 32-year-old female presents with complaint of bilateral low back pain. She says that she has a history of recurrent kidney stones. She says that she also feels like she cannot fully empty her bladder. No dysuria. No fevers. No vomiting. Some nausea. Patient second complaint is of a headache. She has history of recurrent migraines. Lights make it worse. Headache is gradual in onset. Headache is similar to previous headaches. No recent trauma to the head. She is followed by a urologist at [facility]. She is had kidney stones removed before. She has had ureteral stents as well. Lithotripsy done. She did become septic once in 2016 after she had a obstructing stone with associated infection. TRAVEL OUTSIDE OF THE [place] IN LAST 30 DAYS: No - Related Data Allergies/Adverse Reactions: Sulfa (Sulfonamide Antibiotics) Allergy (Verified 10/12/18 11:41) tramadol Allergy (Verified 10/12/18 11:41) Past Medical History - Social History Smoking Status: Unknown if Ever Smoked Frequency of alcohol use: None Drug Abuse: None Family History: Reviewed & Not Pertinent Patient has suicidal ideation: No Patient has homicidal ideation: No - Past Medical History Cardiac Medical History: Denies: Hx Coronary Artery Disease, Hx Heart Attack, Hx Hypertension Pulmonary Medical History: Denies: Hx Asthma, Hx Bronchitis, Hx COPD, Hx Pneumonia Neurological Medical History: Reports: Hx Migraine. Denies: Hx Cerebrovascular Accident, Hx Seizures Renal/ Medical History: Reports: Hx Kidney Stones. Denies: Hx Peritoneal Dialysis Musculoskeletal Medical History: Denies Hx Arthritis Psychiatric Medical History: Reports: Hx Anxiety, Hx Attention Deficit Hyperactivity Disorder, Hx Bipolar Disorder, Hx Depression Past Surgical History: Reports: Hx Section, Hx Cholecystectomy, Hx Genitourinary Surgery - stones, Hx Gynecologic Surgery - removal of fetus, Hx Kidney (Renal Surgery) - stones - Immunizations Immunizations up to date: Yes Hx Diphtheria, Pertussis, Tetanus Vaccination: Yes Review of Systems - Review of Systems Notes: My Normal Review Basic REVIEW OF SYSTEMS: CONSTITUTIONAL : Denies fever, chills, or sweats. Denies recent illness. RESPIRATORY: Denies cough, cold, or chest congestion. Denies shortness of breath, difficulty breathing, or wheezing. GASTROINTESTINAL: Denies abdominal pain. Denies nausea, vomiting, or diarrhea. Denies constipation. Last BM: GENITOURINARY: Some urinary frequency. MUSCULOSKELETAL: Bilateral low back pain over her kidneys. SKIN: Denies rash or skin lesions. NEUROLOGICAL: Denies altered mental status or loss of consciousness. Has a headache. Denies weakness or paralysis or loss of use of either side. Denies problems with gait or speech. Denies sensory or motor loss. ALL OTHER SYSTEMS REVIEWED AND NEGATIVE. Physical Exam - Vital signs Vitals: Temp Pulse Resp BP Pulse Ox 98.6 F 115 H 20 113/77 97 11/01/18 02:11 11/01/18 02:11 11/01/18 02:11 11/01/18 02:11/01/18 02:11 - Notes Notes: General Appearance: Well nourished, alert, cooperative, no acute distress, mild to moderate obvious discomfort. Vitals: reviewed, See vital signs table. Head: no swelling or tenderness to the head Eyes: PERRL, EOMI, Conjuctiva clear Mouth: No decreasd moisture Lungs: No wheezing, No rales, No rhonci, No accessory muscle use, good air exchange bilaterally. Heart: Normal rate, Regular rythm, No murmur, no rub Abdomen: Normal BS, soft, No rigidity, No reproducible abdominal tenderness on palpation, No guarding, no rebound, no abdominal masses, no organomegaly Back: Negative Hemal sign bilaterally. Extremities: strength 5/5 in all extremities, good pulses in all extremities, no swelling or tenderness in the extremities, no edema. Skin: warm, dry, appropriate color, no rash Neuro: speech clear, oriented x 3, normal affect, responds appropriately to questions. Patient has symmetric facial movement. She moves all extremities without difficulty. No focal neurologic deficits on exam. Course - Re-evaluation Re-evalutation: 11/01/18 05:00 Patient's lab results and ultrasound did not show any acute concerning findings. Her urinalysis shows some white blood cells but there is minimal and there is no associated nitrites and I think it is unlikely that this represents infection. We will send her urine for culture and hold off on treatment at this time. Patient currently is sleeping comfortable. I was able wake up to talk for a brief second but she is very tired from the Reglan and therefore let her sleep a little bit longer and then reassess her and talk to her again. Pain is well controlled at this time. No vomiting. 11/01/18 06:21 I spoke with the patient again. She is doing well. She is no longer having significant pain. Headache is gone. She is no longer nauseous. Urinalysis again does not shows significant signs of infection. We will send her urine for culture and if it grows out anything of concern then we will call her. She does not have a fever. She looks well. She is not septic or toxic appearing. I informed her that she needs to call her urologist for close follow-up appointme nt being that she is been having increasing frequency of pain over her kidneys as this is likely related to the increasing number of calcifications and stones that she is getting inside her kidneys. Patient's headache is consistent with her previous migraines. Not consistent with subarachnoid hemorrhage that the headache is not sudden in onset and maximal in onset. Feel the patient safe to be discharged home. I strongly encouraged her return to ER if she has severe sudden onset headache, vomiting, fevers, worsening back pain, or if she feels unwell. Patient agrees with plan will be discharged home. Dictation of this chart was performed using voice recognition software; therefore, there may be some unintended grammatical errors. - Vital Signs Vital signs: Temp Pulse Resp BP Pulse Ox 98.6 F 115 H 20 113/77 97 11/01/18 02:11 11/01/18 02:11 11/01/18 02:11 11/01/18 02:11 11/01/18 02:11 - Laboratory Result Diagrams: 11/01/18 02:03 11/01/18 02:03 Laboratory results interpreted by me: 11/01/18 11/01/18 11/01/18 02:03 02:03 03:15 WBC 11.6 H Chloride 110 H Est GFR (Non-Af Amer) 56 L Urine Blood SMALL H Ur Leukocyte Esterase TRACE H Discharge - Discharge Clinical Impression: Nephrolithiasis Headache Qualifiers: Headache type: unspecified Headache chronicity pattern: episodic headache Intractability: not intractable Qualified Code(s): R51 - Headache Condition: Good Disposition: HOME, SELF-CARE Additional Instructions: Your urine does not show significant signs of infection. We will still send your urine for culture to make sure it does not grow any bacteria. Please follow-up with your urologist within 1 week. Please inform him of your increasing frequency of pain in your kidneys. Please return to ER immediately if you have fevers, vomiting, worsening pain, if you feel unwell. I prescribed Reglan which she can take for nausea and also for headaches. Please follow-up with your doctor in regards to your recurrent migraines. Return to the ER if you have intractable headache, sudden onset of headache, or headache that is ma ximal in pain when it first occurs. Prescriptions: Metoclopramide HCl [Reglan 10 mg Tablet] 1 tab PO ASDIR PRN #25 tablet PRN Reason: Referrals: ROSEMARIE GEORGE FNP [Primary Care Provider] - Follow up in 3-5 days
--- NOTE | 2018-11-01 04:52 | RADIOLOGY REPORT (SQ) ---
CLINICAL HISTORY: bilateral kidney pain, r/o hydro COMPARISON: None. TECHNIQUE: US RETROPERITONEUM on 11/01/2018 3:40 AM INTERNAL CONTROL CONSULTANT FINDINGS: Right kidney measures 11.4 cm and left kidney measures 9.5 cm. The medullary pyramids are echogenic. There is no hydronephrosis. Urinary bladder is unremarkable. 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 No hydronephrosis.
[2018-11-01 06:37] VITALS: BP 116/65
== END 2018-11-01 06:37 | disposition home or self-care (01) ==
LOC: ER 02:05
DX: N20.0 Calculus of kidney (principal); R51 Headache; M54.5 Low back pain; R33.9 Retention of urine, unspecified; Z87.442 Personal history of urinary calculi; Z88.2 Allergy status to sulfonamides; Z88.6 Allergy status to analgesic agent; Z90.49 Acquired absence of other specified parts of digestive tract
CPT/HCPCS: 99284; 96361; 96374; 96375; 36415; 87086; 83690; 84703; 85025; 80053; 81001; 76770; J1885; J2765; J7030

== ENCOUNTER 2018-11-25 21:12 | Emergency (ER) | payer MEDICARE, OTHER ==
[2018-11-25] MEDS ORDERED: ONDANSETRON HCL INJ/PF 4 MG/2 ML SDV IV ONE (21:30)
[2018-11-25] MEDS ORDERED: KETOROLAC TROMETHAMINE INJ/PF 30 MG/1 ML SDV IV ONE (21:31)
[2018-11-25] MEDS ORDERED: NORMAL SALINE 1000 ML 1,000 ML IV ONE (21:31)
--- NOTE | 2018-11-25 21:32 | ER Document Report ---
ED Medical Screen (RME) - General Chief Complaint: Abdominal Pain Stated Complaint: FLANK PAIN/URINARY ISSUE Time Seen by Provider: 11/25/18 21:27 Primary Care Provider: ROSEMARIE GEORGE FNP [Primary Care Provider] - Follow up as needed Notes: 32-year-old female with a history of multiple kidney stones, chief complaint of left abdominal pain and flank pain, states she feels like she "dropped a stone earlier today". Denies fever, vomiting. Reports sharp pain and nausea. TRAVEL OUTSIDE OF THE [place] IN LAST 30 DAYS: No - Related Data Allergies/Adverse Reactions: Sulfa (Sulfonamide Antibiotics) Allergy (Verified 10/12/18 11:41) tramadol Allergy (Verified 10/12/18 11:41) Past Medical History - Social History Family history: Reviewed & Not Pertinent - Past Medical History Cardiac Medical History: Denies: Hx Coronary Artery Disease, Hx Heart Attack, Hx Hypertension Pulmonary Medical History: Denies: Hx Asthma, Hx Bronchitis, Hx COPD, Hx Pneumonia Neurological Medical History: Reports: Hx Migraine. Denies: Hx Cerebrovascular Accident, Hx Seizures Renal/ Medical History: Reports: Hx Kidney Stones. Denies: Hx Peritoneal Dialysis Musculoskeltal Medical History: Denies Hx Arthritis Psychiatric Medical History: Reports: Hx Anxiety, Hx Attention Deficit Hyperactivity Disorder, Hx Bipolar Disorder, Hx Depression Past Surgical History: Reports: Hx Section, Hx Cholecystectomy, Hx Genitourinary Surgery - stones, Hx Gynecologic Surgery - removal of fetus, Hx Kidney (Renal Surgery) - stones - Immunizations Immunizations up to date: Yes Hx Diphtheria, Pertussis, Tetanus Vaccination: Yes Physical Exam - Vital signs Vitals: Temp Pulse Resp BP Pulse Ox 98.6 F 118 H 18 151/102 H 98 11/25/18 21:26 11/25/18 21:11/25/18 21:11/25/18 21:11/25/18 21:26 - General General appearance: Anxious In distress: Mild - appears to be in pain, tearful - Abdominal Tenderness: Tender - Tender with palpation of the left mid to lower abdomen, remaining abdomen benign, exam limited by sitting position Course - Vital Signs Vital signs: Temp Pulse Resp BP Pulse Ox 98.6 F 118 H 18 151/102 H 98 11/25/18 21:26 11/25/18 21:11/25/18 21:26 11/25/18 21:26 11/25/18 21:26 Doctor's Discharge - Discharge Referrals: ROSEMARIE GEORGE FNP [Primary Care Provider] - Follow up as needed
[2018-11-25 21:52] LABS: ABSOLUTE BASOPHILS # (AUTO) 0.1 10^3/uL (0.0-0.2); ABSOLUTE EOSINOPHILS # (AUTO) 0.5 10^3/uL (0.0-0.6); ABSOLUTE LYMPHOCYTES (AUTO) 3.5 10^3/uL (0.5-4.7); ABSOLUTE MONOCYTES (AUTO) 0.9 10^3/uL (0.1-1.4); ABSOLUTE NEUT (AUTO) 4.9 10^3/uL (1.7-8.2); BASOPHILS % (AUTO) 0.7 % (0-2); HEMATOCRIT 38.9 % (36.0-47.0); HEMOGLOBIN 13.5 g/dL (12.0-15.5); LYMPHOCYTES % (AUTO) 35.6 % (13-45); MEAN CORPUSCULAR HEMOGLOBIN 31.7 pg (27.0-33.4); MEAN CORPUSCULAR HGB CONC 34.7 g/dL (32.0-36.0); MEAN CORPUSCULAR VOLUME 91 fl (80-97); PLATELET COUNT 253 10^3/uL (150-450); RED BLOOD COUNT 4.26 10^6/uL (3.72-5.28); RED CELL DISTRIBUTION WIDTH 14.1 % (11.5-14.0); SEGMENTED NEUTROPHILS % (AUTO) 49.7 % (42-78); TOTAL CELLS COUNTED % (AUTO) 100 %; WHITE BLOOD COUNT 9.8 10^3/uL (4.0-10.5)
[2018-11-25 22:08] LABS: ALANINE AMINOTRANSFERASE 42 U/L (9-52); ALBUMIN 5.1 g/dL (3.5-5.0); ALKALINE PHOSPHATASE 78 U/L (38-126); ANION GAP 10 (5-19); ASPARTATE AMINO TRANSFERASE 63 U/L (14-36); BILIRUBIN,DIRECT 0.5 mg/dL (0.0-0.4); BILIRUBIN,TOTAL 0.5 mg/dL (0.2-1.3); BLOOD UREA NITROGEN 14 mg/dL (7-20); CALCIUM 9.8 mg/dL (8.4-10.2); CARBON DIOXIDE 20 mmol/L (22-30); CHLORIDE 107 mmol/L (98-107); GLUCOSE 97 mg/dL (75-110); POTASSIUM 5.4 mmol/L (3.6-5.0); SODIUM 137.3 mmol/L (137-145); TOTAL PROTEIN 8.3 g/dL (6.3-8.2)
--- NOTE | 2018-11-25 23:22 | RADIOLOGY REPORT (SQ) ---
EXAM DESCRIPTION: US RETROPERITONEUM COMPLETED DATE/TME: 11/25/2018 21:31 CLINICAL HISTORY: 32 years, Female, flank pain, nausea; hydro? COMPARISON: 11/01/2018 ultrasound TECHNIQUE: Ultrasound of the kidneys and urinary bladder LIMITATIONS: None. FINDINGS: The right kidney measures 11.5 cm in greatest diameter, the left 10.3 cm. Bilateral renal cortical thinning with diffuse echogenicity to the medullary appearance bilaterally, suggesting medullary nephrocalcinosis. No hydronephrosis. No perinephric fluid collection. Urinary bladder is not distended, limiting its evaluation. IMPRESSION: Findings again suggestive of medullary nephrocalcinosis. copyright 2010 [employer]- All Rights Reserved
[2018-11-25] MEDS ORDERED: METOCLOPRAMIDE HCL INJ/PF 10 MG/2 ML SDV IV ONE (23:26)
[2018-11-25] MEDS ORDERED: MORPHINE SULFATE 10 MG/ML INJ IV PRN (23:26)
[2018-11-25 23:36] LABS: APPEARANCE,URINE CLEAR; BILIRUBIN,URINE NEGATIVE (NEGATIVE); COLOR,URINE STRAW; GLUCOSE, URINE NEGATIVE (NEGATIVE); KETONES,URINE NEGATIVE (NEGATIVE); LEUKOCYTE ESTERASE,URINE SMALL (NEGATIVE); NITRITE,URINE NEGATIVE (NEGATIVE); PROTEIN,URINE NEGATIVE (NEGATIVE); URINE SPECIFIC GRAVITY 1.004; UROBILINOGEN,URINE NEGATIVE mg/dL (<2.0)
[2018-11-26] MEDS ORDERED: CEPHALEXIN 500 MG CAPSULE PO ONE (00:01)
--- NOTE | 2018-11-26 00:05 | ER Document Report ---
ED General - General Chief Complaint: Abdominal Pain Stated Complaint: FLANK PAIN/URINARY ISSUE Time Seen by Provider: 11/25/18 21:27 Primary Care Provider: ROSEMARIE GEORGE FNP [Primary Care Provider] - Follow up as needed Notes: Patient is a 33-year-old male with a past medical history of recurrent nephrolithiasis, chronic nephrocalcinosis, presents with bilateral flank pain, lower abdominal pain as well as a feeling that she is having difficulty passing urine. Patient states that she felt that she dropped a kidney stone on the right side earlier today but was unable to pass it. States that now she has wilfred ateral, throbbing, aching, constant flank pain. She states that the Toradol given in triage has provided minimal relief. Nothing worsens her symptoms. States this feels very similar to when she has passed kidney stones in the past. Has not seen in the emergency department repeatedly for similar issues. Has not seen her general physician regarding today's concerns. She denies fever or constitutional symptoms. No gross hematuria. TRAVEL OUTSIDE OF THE [place] IN LAST 30 DAYS: No - Related Data Allergies/Adverse Reactions: Sulfa (Sulfonamide Antibiotics) Allergy (Verified 10/12/18 11:41) tramadol Allergy (Verified 10/12/18 11:41) Past Medical History - General Information source: Patient - Social History Smoking Status: Never Smoker Frequency of alcohol use: None Drug Abuse: None Lives with: Family Family History: Reviewed & Not Pertinent - Past Medical History Cardiac Medical History: Denies: Hx Coronary Artery Disease, Hx Heart Attack, Hx Hypertension Pulmonary Medical History: Denies: Hx Asthma, Hx Bronchitis, Hx COPD, Hx Pneumonia Neurological Medical History: Reports: Hx Migraine. Denies: Hx Cerebrovascular Accident, Hx Seizures Renal/ Medical History: Reports: Hx Kidney Stones. Denies: Hx Peritoneal Dialysis Musculoskeletal Medical History: Denies Hx Arthritis Psychiatric Medical History: Reports: Hx Anxiety, Hx Attention Deficit Hyperactivity Disorder, Hx Bipolar Disorder, Hx Depression Past Surgical History: Reports: Hx Section, Hx Cholecystectomy, Hx Genitourinary Surgery - stones, Hx Gynecologic Surgery - removal of fetus, Hx Kidney (Renal Surgery) - stones - Immunizations Immunizations up to date: Yes Hx Diphtheria, Pertussis, Tetanus Vaccination: Yes Review of Systems - Review of Systems Notes: Constitutional: Negative for fever. HENT: Negative for sore throat. Eyes: Negative for visual changes. Cardiovascular: Negative for chest pain. Respiratory: Negative for shortness of breath. Gastrointestinal: Positive for bilateral flank pain and nausea Genitourinary: Positive for urinary urgency and dysuria Musculoskeletal: Negative for back pain. Skin: Negative for rash. Neurological: Negative for headaches, weakness or numbness. 10 point ROS negative except as marked above and in HPI. Physical Exam - Vital signs Vitals: Temp Pulse Resp BP Pulse Ox 98.6 F 118 H 18 151/102 H 98 11/25/18 21:26 11/25/18 21:26 11/25/18 21:26 11/25/18 21:26 11/25/18 21:26 Interpretation: Tachycardic - Resolved at time of my assessment with a heart rate of 84 Notes: PHYSICAL EXAMINATION: GENERAL: Well-appearing, well-nourished and in no acute distress. HEAD: Atraumatic, normocephalic. EYES: Pupils equal round and reactive to light, extraocular movements intact, sclera anicteric, conjunctiva are normal. ENT: nares patent, oropharynx clear without exudates. Moderately dry mucous membranes. NECK: Normal range of motion, supple without lymphadenopathy LUNGS: Breath sounds clear to auscultation bilaterally and equal. No wheezes rales or rhonchi. HEART: Regular rate and rhythm without murmurs ABDOMEN: Soft, nontender, normoactive bowel sounds. No guarding, no rebound. No masses appreciated. EXTREMITIES: Normal range of motion, no pitting or edema. No cyanosis. NEUROLOGICAL: No focal neurological deficits. Moves all extremities spontaneously and on command. PSYCH: Normal mood, normal affect. SKIN: Warm, Dry, normal turgor, no rashes or lesions noted. Course - Re-evaluation Re-evalutation: 11/26/18 00:02 Patient presents with complaints of flank pain starting on the right, now bilateral. The patient states that she felt she was dropping a kidney stone but could not actually get it to pass her out of her urethra. States that she felt like she was having a distended bladder. On exam the patient is well in ap pearance, no focal abdominal tenderness, rebound or guarding. Minimal flank tenderness. Ultrasound does not show any evidence of bladder distention, and no evidence of hydronephrosis, chronic nephrocalcinosis present. Urinalysis without evidence of hematuria, does show 10 white blood cells suggestive of possible urinary tract infection. Culture has been sent. Laboratories are otherwise grossly unremarkable. Vitals initially in triage a heart rate of 118 which has resolved some my assessment with a heart rate of 84. At this time will discharge with return precautions and follow-up recommendations. Verbal discharge instructions given a the bedside and opportunity for questions given. Medication warnings reviewed. Patient is in agreement with this plan and has verbalized understanding of return precautions and the need for primary care follow-up in the next 24-72 hours. - Vital Signs Vital signs: Temp Pulse Resp BP Pulse Ox 98.6 F 118 H 18 151/102 H 98 11/25/18 21:26 11/25/18 21:26 11/25/18 21:26 11/25/18 21:26 11/25/18 21:26 - Laboratory Result Diagrams: 11/25/18 21:37 11/25/18 21:37 Laboratory results interpreted by me: 11/25/18 11/25/18 11/25/18 21:37 21:37 23:15 RDW 14.1 H Potassium 5.4 H Carbon Dioxide 20 L Est GFR (Non-Af Amer) 59 L Direct Bilirubin 0.5 H AST 63 H Total Protein 8.3 H Albumin 5.1 H Ur Leukocyte Esterase SMALL H - Diagnostic Test Radiology reviewed: Reports reviewed Discharge - Discharge Clinical Impression: Bilateral flank pain, Urinary urgency UTI (urinary tract infection) Qualifiers: Urinary tract infection type: acute cystitis Hematuria presence: without hematuria Qualified Code(s): N30.00 - Acute cystitis without hematuria Condition: Good Disposition: HOME, SELF-CARE Additional Instructions: Your urine shows findings consistent with a urinary tract infection. There is no blood in your urine. Your ultrasound does not show distended bladder and her kidneys are unchanged from your previous assessment. Please take all the antibiotics as directed even if your symptoms have improved. Please follow-up with your primary care physician in the next 24-48 hours. Return to emergency room if you develop fever >101F, persistent vomiting, become lethargic, have worsening pain, or any other symptoms that are concerning to you. Prescriptions: Cephalexin Monohydrate [Keflex 500 mg Capsule] 500 mg PO Q6H 5 Days capsule Referrals: ROSEMARIE GEORGE FNP [Primary Care Provider] - Follow up as needed
[2018-11-26 00:36] VITALS: BP 126/63
== END 2018-11-26 00:36 | disposition home or self-care (01) ==
LOC: ER 21:12
DX: N30.00 Acute cystitis without hematuria (principal); R39.15 Urgency of urination; R10.9 Unspecified abdominal pain; R10.30 Lower abdominal pain, unspecified; R30.0 Dysuria; Z88.2 Allergy status to sulfonamides; Z88.6 Allergy status to analgesic agent; Z87.442 Personal history of urinary calculi; Z90.49 Acquired absence of other specified parts of digestive tract
CPT/HCPCS: 96375; 99284; 96361; 96374; 36415; 87086; 84703; 85025; 80053; 81001; 76770; A9270; J1885; J2765; J2270; J2405; J7030

== ENCOUNTER → 2019-03-08 | Outpatient (CLI) | payer MEDICARE, OTHER ==
[2019-03-08 11:35] LABS: HEMATOCRIT 39.7 % (36.0-47.0); HEMOGLOBIN 13.3 g/dL (12.0-15.5); MEAN CORPUSCULAR HEMOGLOBIN 30.6 pg (27.0-33.4); MEAN CORPUSCULAR HGB CONC 33.6 g/dL (32.0-36.0); MEAN CORPUSCULAR VOLUME 91 fl (80-97); PLATELET COUNT 238 10^3/uL (150-450); RED BLOOD COUNT 4.36 10^6/uL (3.72-5.28); RED CELL DISTRIBUTION WIDTH 13.4 % (11.5-14.0)
[2019-03-08 11:45] LABS: APPEARANCE,URINE SLIGHTLY-CLOUDY; BILIRUBIN,URINE NEGATIVE (NEGATIVE); COLOR,URINE YELLOW; GLUCOSE, URINE NEGATIVE (NEGATIVE); KETONES,URINE NEGATIVE (NEGATIVE); LEUKOCYTE ESTERASE,URINE SMALL (NEGATIVE); NITRITE,URINE NEGATIVE (NEGATIVE); PROTEIN,URINE NEGATIVE (NEGATIVE); URINE SPECIFIC GRAVITY 1.021; UROBILINOGEN,URINE NEGATIVE mg/dL (<2.0)
[2019-03-08 12:05] LABS: ALANINE AMINOTRANSFERASE 41 U/L (9-52); ALBUMIN 4.2 g/dL (3.5-5.0); ALKALINE PHOSPHATASE 91 U/L (38-126); ANION GAP 11 (5-19); ASPARTATE AMINO TRANSFERASE 27 U/L (14-36); BILIRUBIN,DIRECT 0.2 mg/dL (0.0-0.4); BILIRUBIN,TOTAL 0.3 mg/dL (0.2-1.3); BLOOD UREA NITROGEN 23 mg/dL (7-20); CALCIUM 9.6 mg/dL (8.4-10.2); CARBON DIOXIDE 23 mmol/L (22-30); CHLORIDE 107 mmol/L (98-107); GLUCOSE 95 mg/dL (75-110); POTASSIUM 4.3 mmol/L (3.6-5.0); SODIUM 140.7 mmol/L (137-145); TOTAL PROTEIN 6.9 g/dL (6.3-8.2)
== END ==
LOC: OD 10:37
PROVIDERS: ATTEND Internal Medicine
DX: Z79.891 Long term (current) use of opiate analgesic (principal)
CPT/HCPCS: 36415; 80053; 81001; 85027

== ENCOUNTER 2019-05-02 14:00 | Emergency (ER) | payer MEDICARE, OTHER ==
--- NOTE | 2019-05-02 14:14 | ER Document Report ---
ED Medical Screen (RME) - General Chief Complaint: Abscess Stated Complaint: INFECTION Time Seen by Provider: 05/02/19 14:07 Primary Care Provider: KADEN SALINAS MD [Primary Care Provider] - Follow up as needed Mode of Arrival: Wheelchair Information source: Patient Notes: 33-year-old female presented to ED for infection to the left lower leg. She states to 3 weeks ago she went to urgent care and they diagnosed her with impetigo a week later she went and got a tattoo. She states she did not know you were not supposed to get a tattoo when you had impetigo. She now has a very infected tattoo on her foot and her lower leg. There is what appears to be an abscess on one portion of the tattoo. There is red streaking up her leg. He states the pain is such that she will never get another tattoo. I have greeted and performed a rapid initial assessment of this patient. A comprehensive ED assessment and evaluation of the patient, analysis of test resu lts and completion of medical decision making process will be conducted by an additional ED providers. Dictation of this chart was performed using voice recognition software; therefore, there may be some unintended grammatical errors. TRAVEL OUTSIDE OF THE [place] IN LAST 30 DAYS: No - Related Data Allergies/Adverse Reactions: Sulfa (Sulfonamide Antibiotics) Allergy (Verified 05/02/19 14:02) tramadol Allergy (Verified 05/02/19 14:02) Past Medical History - Social History Family history: Reviewed & Not Pertinent - Past Medical History Cardiac Medical History: Denies: Hx Coronary Artery Disease, Hx Heart Attack, Hx Hypertension Pulmonary Medical History: Denies: Hx Asthma, Hx Bronchitis, Hx COPD, Hx Pneumonia Neurological Medical History: Reports: Hx Migraine. Denies: Hx Cerebrovascular Accident, Hx Seizures Renal/ Medical History: Reports: Hx Kidney Stones. Denies: Hx Peritoneal Dialysis Musculoskeltal Medical History: Denies Hx Arthritis Psychiatric Medical History: Reports: Hx Anxiety, Hx Attention Deficit Hyperactivity Disorder, Hx Bipolar Disorder, Hx Depression Past Surgical History: Reports: Hx Section, Hx Cholecystectomy, Hx Genitourinary Surgery - stones, Hx Gynecologic Surgery - removal of fetus, Hx Kidney (Renal Surgery) - stones - Immunizations Immunizations up to date: Yes Hx Diphtheria, Pertussis, Tetanus Vaccination: Yes Physical Exam - Vital signs Vitals: Temp Pulse Resp BP Pulse Ox 99.2 F 107 H 16 153/85 H 94 05/02/19 14:05 05/02/19 14:05 05/02/19 14:05 05/02/19 14:05 05/02/19 14:05 Course - Vital Signs Vital signs: Temp Pulse Resp BP Pulse Ox 99.2 F 107 H 16 153/85 H 94 05/02/19 14:05 05/02/19 14:05 05/02/19 14:05 05/02/19 14:05 05/02/19 14:05 Doctor's Discharge - Discharge Referrals: KADEN SALINAS MD [Primary Care Provider] - Follow up as needed
[2019-05-02 14:58] LABS: ABSOLUTE BASOPHILS # (AUTO) 0.1 10^3/uL (0.0-0.2); ABSOLUTE EOSINOPHILS # (AUTO) 0.1 10^3/uL (0.0-0.6); ABSOLUTE MONOCYTES (AUTO) 0.8 10^3/uL (0.1-1.4); ABSOLUTE NEUT (AUTO) 8.2 10^3/uL (1.7-8.2); BASOPHILS % (AUTO) 0.5 % (0-2); EOSINOPHILS % (AUTO) 1.1 % (0-6); HEMATOCRIT 39.2 % (36.0-47.0); HEMOGLOBIN 13.2 g/dL (12.0-15.5); LYMPHOCYTES % (AUTO) 17.7 % (13-45); MEAN CORPUSCULAR HEMOGLOBIN 29.8 pg (27.0-33.4); MEAN CORPUSCULAR HGB CONC 33.8 g/dL (32.0-36.0); MEAN CORPUSCULAR VOLUME 88 fl (80-97); MONOCYTES % (AUTO) 7.3 % (3-13); PLATELET COUNT 233 10^3/uL (150-450); RED BLOOD COUNT 4.45 10^6/uL (3.72-5.28); SEGMENTED NEUTROPHILS % (AUTO) 73.4 % (42-78); TOTAL CELLS COUNTED % (AUTO) 100 %; WHITE BLOOD COUNT 11.2 10^3/uL (4.0-10.5)
[2019-05-02 15:16] LABS: ALANINE AMINOTRANSFERASE 45 U/L (9-52); ALBUMIN 4.6 g/dL (3.5-5.0); ALKALINE PHOSPHATASE 111 U/L (38-126); ANION GAP 11 (5-19); ASPARTATE AMINO TRANSFERASE 37 U/L (14-36); BILIRUBIN,DIRECT 0.3 mg/dL (0.0-0.4); BILIRUBIN,TOTAL 0.3 mg/dL (0.2-1.3); BLOOD UREA NITROGEN 14 mg/dL (7-20); CALCIUM 9.6 mg/dL (8.4-10.2); CARBON DIOXIDE 22 mmol/L (22-30); CHLORIDE 107 mmol/L (98-107); GLUCOSE 90 mg/dL (75-110); POTASSIUM 4.3 mmol/L (3.6-5.0); SODIUM 139.7 mmol/L (137-145); TOTAL PROTEIN 7.9 g/dL (6.3-8.2)
[2019-05-02] MEDS ORDERED: CEFTRIAXONE INJ 1000 MG VIAL IM ONE (15:57)
[2019-05-02] MEDS ORDERED: LIDOCAINE 1% INJ (10 MG/ML) 10 ML MDV INJ ONE (15:58)
--- NOTE | 2019-05-02 16:09 | ER Document Report ---
ED Skin Rash/Insect Bite/Abscs - General Chief Complaint: Abscess Stated Complaint: INFECTION Time Seen by Provider: 05/02/19 14:07 Primary Care Provider: KADEN SALINAS MD [NO LOCAL MD] - Follow up as needed Mode of Arrival: Wheelchair Notes: Patient says that her daughter was diagnosed with impetigo about 3 weeks ago. Patient apparently picked it up from the daughter and went to a local urgent care where she was prescribed a cream to apply 3 times a day. Sounds like mupirocin. And patient thinks that is the correct name. All of her lesions have cleared except for those on her head. However, patient obtained a tattoo of her left lower leg and left foot about 2 weeks ago and both of these tattoos appear to be infected. The superior aspect of both of the tattoos show redness and some swelling. Patient also notes that she has swelling of the inner aspect of the left rodriguez which is tender to the touch. Patient is not aware of any fever. Not diabetic. Patient is allergic to sulfa drugs and tramadol. TRAVEL OUTSIDE OF THE [place] IN LAST 30 DAYS: No - Related Data Allergies/Adverse Reactions: Sulfa (Sulfonamide Antibiotics) Allergy (Verified 05/02/19 14:02) tramadol Allergy (Verified 05/02/19 14:02) Past Medical History - General Information source: Patient - Social History Smoking Status: Current Every Day Smoker Chew tobacco use (# tins/day): No Frequency of alcohol use: None Drug Abuse: Marijuana Family History: Reviewed & Not Pertinent Patient has suicidal ideation: No Patient has homicidal ideation: No Neurological Medical History: Reports: Hx Migraine Renal/ Medical History: Reports: Hx Kidney Stones Musculoskeletal Medical History: Denies Hx Arthritis Psychiatric Medical History: Reports: Hx Anxiety, Hx Attention Deficit Hyperactivity Disorder, Hx Bipolar Disorder, Hx Depression Past Surgical History: Reports: Hx Section, Hx Cholecystectomy, Hx Genitourinary Surgery - stones, Hx Gynecologic Surgery - removal of fetus, Hx Kidney (Renal Surgery) - stones - Immunizations Immunizations up to date: Yes Hx Diphtheria, Pertussis, Tetanus Vaccination: Yes Review of Systems - Review of Systems Notes: CONSTITUTIONAL : Denies fever. CARDIOVASCULAR: Denies chest pain. RESPIRATORY: Denies cough, chest congestion, or shortness of breath. GASTROINTESTINAL: Denies abdominal pain or nausea, vomiting, or diarrhea. GENITOURINARY: Denies difficulty or painful urinating, urinary frequency, blood in urine. Physical Exam - Vital signs Vitals: Temp Pulse Resp BP Pulse Ox 99.2 F 107 H 16 153/85 H 94 05/02/19 14:05 05/02/19 14:05 05/02/19 14:05/02/19 14:05/02/19 14:05 Interpretation: Normal, Tachycardic - Minimal. No: Febrile Notes: PHYSICAL EXAMINATION: GENERAL: Well-appearing, no acute distress. HEAD: Atraumatic, normocephalic. NECK: Normal range of motion, supple. LUNGS: Breath sounds clear and equal bilaterally. HEART: Regular rate and rhythm without murmurs heard. ABDOMEN: Soft, nontender. No guarding or rebound or masses felt. Skin: Patient has 2 tattoos on her left lower leg, one in the mid rodriguez region and the other one of the dorsal left ankle/foot. Course - Re-evaluation Re-evalutation: 05/02/19 16:09 The superior aspect of both of the tattoos are somewhat erythematous, the lower smaller tattoo showing less erythema. No fluctuance and no drainage of that tattoo. The larger tattoo of the lateral aspect of the left rodriguez has an erythematous area at the superior aspect which is tender to the touch, but I do not feel fluctuance and I do not note any drainage. I cleansed the area with some alcohol swab and then inserted an 18-gauge needle into the center of the swollen area and only obtained back blood. No culture could be provided. I do not think there is an abscess present. I am going to give the patient an injection of Rocephin and then send her home on Keflex and doxycycline. She is allergic to sulfa. Have advised her about cleansing the area about 4 times a day with soapy warm water wash cloth and warm compresses. Advise recheck if not improving in 3 days. No more squeezing or mashing on the area. - Vital Signs Vital signs: Temp Pulse Resp BP Pulse Ox 99.2 F 107 H 16 153/85 H 94 05/02/19 14:05 05/02/19 14:05/02/19 14:05/02/19 14:05 07/04/19 14:05 - Laboratory Result Diagrams: 05/02/19 14:45 05/02/19 14:45 Laboratory results interpreted by me: 05/02/19 05/02/19 14:45 14:45 WBC 11.2 H AST 37 H Discharge - Discharge Clinical Impression: Cellulitis of left lower extremity Condition: Stable Disposition: HOME, SELF-CARE Additional Instructions: CELLULITIS: You have an infection of your skin and underlying soft tissues called cellulitis. This is due to bacteria, which can enter through any break in the skin, or even through an irritated hair follicle. Untreated, cellulitis will usually worsen. Antibiotics are required. Usually, warm packs or warm soaks, and elevation of the infected area are recommended. You should start getting better within 24 to 36 hours. Most infections respond quickly to the right medication. Follow-up care is important, however, to check for abscess (boil) formation, unsuspected foreign body, or resistant infection. If you develop fever, chills, or if the area of infection is becoming rapidly more swollen or painful, call the doctor at once. MRSA CELLULITIS: You May have an infection of your skin and underlying soft tissues called cellulitis. This is due to bacteria, which can enter through any break in the skin, or even through an irritated hair follicle. Untreated, cellulitis will usually worsen and may form an abscess which requires draining. Although many bacterial organisms can cause cellulitis and abscess formations, the most likely bacteria is Methicillin-Resistant Staph Aureus, or MRSA for short. Antibiotics are required. Usually, warm packs or warm soaks, and elevation of the infected area are recommended. You should start getting better within 24 to 36 hours. Most infections respond quickly to the right medication. Follow-up care is important, however, to check for abscess (boil) formation, unsuspected foreign body, or resistant infection. If you develop fever, chills, or if the area of infection is becoming rapidly more swollen or painful, call the doctor at once. ANTIBIOTIC THERAPY: You have been given an antibiotic prescription. It's important that you take all the medication, unless instructed otherwise by your physician. Failure to complete the entire course can result in relapse of your condition. Common side effects of antibiotics include nausea, intestinal cramping, or diarrhea. Women may develop vaginal yeast infections, and babies can get yeast (thrush) in the mouth following the use of antibiotics. Contact your physician if you develop significant side effects from this medication. Allergy to this antibiotic can result in hives, wheezing, faintness, or itching. If symptoms of allergy occur, stop the medication and call the doctor. Rocephin You have been given an injection of an antibiotic called Rocephin (ceftriaxone). Sometimes the injection must be combined with antibiotic pills. For some infections, such as an uncomplicated ear infection, Rocephin provides all the antibiotic that's needed. The antibiotic will be in your body for about two days. For serious infections, we usually repeat doses of Rocephin daily. Side effects are very unusual following a shot. Women may develop vaginal yeast infections, and babies can get yeast (thrush) in the mouth following the use of antibiotics. Contact your physician if you have symptoms with this medication. Allergy to this antibiotic can result in hives, wheezing, faintness, or itching. If symptoms of allergy occur, call the doctor at once. DOXYCYCLINE: Doxycycline (Vibramycin, Doryx) is an antibiotic of the tetracycline family. This type of drug is useful for infections of the respiratory tract and genital tract, and is sometimes used for intestinal infections. Unlike most tetracyclines, doxycycline can be taken with food. It is longer acting, and (usually) less prone to side effects than regular tetracycline. Tetracycline antibiotics can stain immature teeth and SHOULD NOT BE TAKEN BY CHILDREN, NURSING MOTHERS, OR WOMEN. Tetracyclines can make you more prone to sunburn. Abdominal cramping, nausea, and diarrhea are occasional side effects. Women may experience vaginal yeast infections. Call the doctor at once if you develop hives, itching, shortness of breath, or lightheadedness. ORAL NARCOTIC MEDICATION: You have been given a prescription for pain control. This medication is a narcotic. It's best taken with food, as nausea can result if taken on an empty stomach. Don't operate machinery or drive within six hours of taking this medication. Do not combine this medicine with alcohol, or with any medication which can cause sedation (such as cold tablets or sleeping pills) unless you get permission from the physician. Narcotics tend to cause constipation. If possible, drink plenty of fluids and eat a diet high in fiber and fruits. Please be aware that prescription narcotics also have the potential for abuse. People become addicted to these medications because of the general sense of wellbeing that they induce. This feeling along with a significant reduction in tension, anxiety, and aggression provides a stimulating seductive quality to these drugs. Once your pain is under control, we encourage you to discard your unused narcotics. Fluconazole, for yeast infection, if needed: Fluconazole (Diflucan) is an antifungal drug. It is useful for serious fungal infections, but is also excellent for oral or vaginal yeast infections. Diflucan interacts with some medicines. This is a concern if you are taking anticoagulants (such as Coumadin), phenytoin (Dilantin), cyclosporin, or oral hypoglycemics (such as tolbutamide, Orinase, glipizide, Glucotrol, glyburid e, DiaBeta, Glynase, and Micronase). Be sure the doctor knows if you are taking one of these medicines. We don't know how Diflucan affects . If you are planning to become , discuss this with your doctor. Diflucan has few side effects. Minor side effects may include nausea, headache, or diarrhea. Call the doctor if you develop a skin rash, shortness of breath, or other new symptoms. FOLLOW-UP CARE: If you have been referred to a physician for follow-up care, call the physicians office for an appointment as you were instructed or within the next two days. If you experience worsening or a significant change in your symptoms, notify the physician immediately or return to the Emergency Department at any time for re-evaluation. At this time, I do not think you have an abscess of either location of her tattoos. I think this is all cell infection called cellulitis and will respond and be treated sufficiently with oral antibiotics. Take the medications as prescribed. Gently scrub both of these tattoos areas with warm water and gentle washcloth at least 4 times a day. Some warm compresses after that would be advisable. Try to gently rub off any scabby formation where the tattoos are located. Return if these areas appear to worsen with worsening swelling, etc. Prescriptions: Cephalexin [Cephalexin 250 MG Tablet] 1 tab PO QID #40 tablet Doxycycline Hyclate 100 mg PO BID #20 capsule Fluconazole [Diflucan] 150 mg PO ONCE PRN #1 tablet PRN Reason: Oxycodone HCl/Acetaminophen [Percocet 5-325 mg Tablet] 1 - 2 tab PO Q4H PRN #15 tablet PRN Reason: Referrals: KADEN SALINAS MD [NO LOCAL MD] - Follow up as needed
[2019-05-02 16:59] VITALS: BP 138/78
== END 2019-05-02 17:00 | disposition home or self-care (01) ==
LOC: ER 14:00
DX: L03.116 Cellulitis of left lower limb (principal); F17.200 Nicotine dependence, unspecified, uncomplicated; Z87.442 Personal history of urinary calculi; Z90.49 Acquired absence of other specified parts of digestive tract; Z88.2 Allergy status to sulfonamides; Z88.6 Allergy status to analgesic agent
CPT/HCPCS: 99283; 96372; 36415; 87040; 84703; 85025; 80053; J0696

== ENCOUNTER 2019-05-03 03:22 | Emergency (ER) | payer MEDICARE, OTHER ==
[2019-05-03] MEDS ORDERED: NORMAL SALINE 1000 ML 1,000 ML IV ONE (08:29)
[2019-05-03 08:47] LABS: ABSOLUTE BASOPHILS # (AUTO) 0.1 10^3/uL (0.0-0.2); ABSOLUTE EOSINOPHILS # (AUTO) 0.1 10^3/uL (0.0-0.6); ABSOLUTE LYMPHOCYTES (AUTO) 1.3 10^3/uL (0.5-4.7); ABSOLUTE MONOCYTES (AUTO) 0.9 10^3/uL (0.1-1.4); ABSOLUTE NEUT (AUTO) 9.6 10^3/uL (1.7-8.2); BASOPHILS % (AUTO) 0.9 % (0-2); EOSINOPHILS % (AUTO) 0.6 % (0-6); HEMATOCRIT 37.1 % (36.0-47.0); HEMOGLOBIN 12.5 g/dL (12.0-15.5); LYMPHOCYTES % (AUTO) 11.2 % (13-45); MEAN CORPUSCULAR HEMOGLOBIN 30.2 pg (27.0-33.4); MEAN CORPUSCULAR HGB CONC 33.6 g/dL (32.0-36.0); MEAN CORPUSCULAR VOLUME 90 fl (80-97); MONOCYTES % (AUTO) 7.1 % (3-13); PLATELET COUNT 235 10^3/uL (150-450); RED BLOOD COUNT 4.12 10^6/uL (3.72-5.28); SEGMENTED NEUTROPHILS % (AUTO) 80.2 % (42-78); TOTAL CELLS COUNTED % (AUTO) 100 %; WHITE BLOOD COUNT 11.9 10^3/uL (4.0-10.5)
[2019-05-03 08:51] LABS: ALANINE AMINOTRANSFERASE 68 U/L (9-52); ALBUMIN 4.2 g/dL (3.5-5.0); ALKALINE PHOSPHATASE 141 U/L (38-126); ANION GAP 10 (5-19); ASPARTATE AMINO TRANSFERASE 69 U/L (14-36); BILIRUBIN,DIRECT 0.4 mg/dL (0.0-0.4); BILIRUBIN,TOTAL 0.4 mg/dL (0.2-1.3); BLOOD UREA NITROGEN 15 mg/dL (7-20); CALCIUM 9.5 mg/dL (8.4-10.2); CARBON DIOXIDE 23 mmol/L (22-30); CHLORIDE 106 mmol/L (98-107); GLUCOSE 108 mg/dL (75-110); POTASSIUM 4.2 mmol/L (3.6-5.0); SODIUM 139.1 mmol/L (137-145); TOTAL PROTEIN 7.7 g/dL (6.3-8.2)
[2019-05-03] MEDS ORDERED: CLINDAMYCIN 600 MG/D5W RTU 600 MG/50 ML RTUPB IV ONE (09:32)
[2019-05-03] MEDS ORDERED: KETOROLAC TROMETHAMINE INJ/PF 30 MG/1 ML SDV IV ONE (09:33)
[2019-05-03] MEDS ORDERED: OXYCODONE-ACETAMINOPHEN 5-325 MG TABLET PO ONE (09:33)
--- NOTE | 2019-05-03 10:15 | ER Document Report ---
ED General - General Chief Complaint: Wound Infection Stated Complaint: LEG PAIN Time Seen by Provider: 05/03/19 08:27 Primary Care Provider: ROSEMARIE GEORGE FNP [Primary Care Provider] - Follow up as needed TRAVEL OUTSIDE OF THE [place] IN LAST 30 DAYS: No - HPI Notes: Patient is a 33-year-old female who presents emergency department for evaluation of worsening infection. Evidently she was seen here yesterday. She was given IV antibiotics, sent home with a prescription for oral antibiotics. She states her, she was closed yesterday, so she could not get them filled. She states that the redness is gotten significantly worse. She states that the clinician made an attempt to obtain purulent drainage from it yesterday. He was unsuccessful. Patient states that she did have a large amount of purulent drainage from it when her "mother squeezed it." No christopher fevers or chills, but she does have some nausea, general malaise, and increased pain. - Related Data Allergies/Adverse Reactions: Sulfa (Sulfonamide Antibiotics) Allergy (Verified 05/02/19 14:02) tramadol Allergy (Verified 05/02/19 14:02) Past Medical History - General Information source: Patient - Social History Smoking Status: Current Every Day Smoker Drug Abuse: Marijuana Family History: Reviewed & Not Pertinent Patient has suicidal ideation: No Patient has homicidal ideation: No - Past Medical History Cardiac Medical History: Denies: Hx Coronary Artery Disease, Hx Heart Attack, Hx Hypertension Pulmonary Medical History: Denies: Hx Asthma, Hx Bronchitis, Hx COPD, Hx Pneumonia Neurological Medical History: Reports: Hx Migraine. Denies: Hx Cerebrovascular Accident, Hx Seizures Renal/ Medical History: Reports: Hx Kidney Stones. Denies: Hx Peritoneal Dialysis Musculoskeletal Medical History: Denies Hx Arthritis Psychiatric Medical History: Reports: Hx Anxiety, Hx Attention Deficit Hyperactivity Disorder, Hx Bipolar Disorder, Hx Depression Past Surgical History: Reports: Hx Section, Hx Cholecystectomy, Hx Genitourinary Surgery - stones, Hx Gynecologic Surgery - removal of fetus, Hx Kidney (Renal Surgery) - stones - Immunizations Immunizations up to date: Yes Hx Diphtheria, Pertussis, Tetanus Vaccination: Yes Review of Systems - Review of Systems Constitutional: See HPI EENT: No symptoms reported Cardiovascular: No symptoms reported Respiratory: No symptoms reported Gastrointestinal: See HPI Genitourinary: No symptoms reported Musculoskeletal: No symptoms reported Skin: See HPI Neurological/Psychological: No symptoms reported Physical Exam - Vital signs Vitals: Temp Pulse Resp BP Pulse Ox 99.4 F 119 H 18 117/60 95 05/03/19 03:36 05/03/19 03:36 05/03/19 03:36 05/03/19 03:36 05/03/19 03:36 - Notes Notes: Vital signs reviewed, please refer to chart. Head is normocephalic, atraumatic. Pupils equal round, reactive to light. Neck is supple without meningismus. Heart is regular rate and rhythm. Lungs are clear to auscultation bilaterally. Abdomen is soft, nontender, normoactive bowel sounds throughout. Extremities without cyanosis, clubbing. Posterior calves are nontender. Peripheral pulses are equal. Skin is warm and dry. Patient has significant erythema and induration surrounding a new tattoo on her left lateral calf. There is no palpable fluctuance. There is an open area at the most cephalad aspect of the tattoo, without purulent drainage or bleeding. No obvious foreign body. There is a 12 x 8 cm area of erythema, tracking cephalad on the more medial aspect of the left leg. Neurovascularly intact distally. Patient is awake, alert, neurological exam is nonfocal. Course - Re-evaluation Re-evalutation: 05/03/19 10:13 Patient presents emergency department for evaluation. She does have a cellulitis which is apparently worsening. She did not fill the antibiotics as prescribed either. She was given IV fluids. She does continue to have a mild leukocytosis. She was given an IV dose of clindamycin here. She was Jayce written prescription for doxycycline at home. She is encouraged strongly to take that. She was given Toradol and Percocet as well. She is to return to the ED with worsening or new concerning symptoms of any sort. - Vital Signs Vital signs: Temp Pulse Resp BP Pulse Ox 100 F 119 H 18 117/60 97 05/03/19 06:27 05/03/19 03:36 05/03/19 03:36 05/03/19 03:36 05/03/19 06:27 - Laboratory Result Diagrams: 05/03/19 06:20 05/03/19 06:20 Laboratory results interpreted by me: 05/03/19 05/03/19 06:20 06:20 WBC 11.9 H Seg Neutrophils % 80.2 H Lymphocytes % 11.2 L Absolute Neutrophils 9.6 H AST 69 H ALT 68 H Alkaline Phosphatase 141 H Discharge - Discharge Clinical Impression: Cellulitis of left lower extremity Condition: Stable Disposition: HOME, SELF-CARE Instructions: Soap Cleansing ([facility]), MRSA Cellulitis ([facility]) Additional Instructions: It is very important that you fill the antibiotics and take them exactly as prescribed, starting this morning. Take ibuprofen as needed for moderate pain, the Percocet as needed for more severe pain. If you develop fever lasting longer than the next 24 hours, vomiting, increased redness, or any other new or concerning symptoms, return immediately to the emergency department for reevaluation. Referrals: ROSEMARIE GEORGE FNP [Primary Care Provider] - Follow up as needed
[2019-05-03 10:37] VITALS: BP 118/66
== END 2019-05-03 10:37 | disposition home or self-care (01) ==
LOC: ER 03:22
DX: L03.116 Cellulitis of left lower limb (principal); T36.4X6A Underdosing of tetracyclines, initial encounter; Z91.128 Patient's intentional underdosing of medication regimen for other reason; Z91.14 Patient's other noncompliance with medication regimen; R11.0 Nausea; R53.81 Other malaise; Z88.2 Allergy status to sulfonamides; Z88.5 Allergy status to narcotic agent; F17.200 Nicotine dependence, unspecified, uncomplicated; F12.10 Cannabis abuse, uncomplicated; D72.829 Elevated white blood cell count, unspecified
CPT/HCPCS: 36415; 87040; 85025; 80053; 83605; J1885; A9270; J7030

== ENCOUNTER 2019-09-03 21:39 | Emergency (ER) | payer MEDICARE, OTHER ==
--- NOTE | 2019-09-03 21:53 | ER Document Report ---
ED Medical Screen (RME) - General Chief Complaint: Urinary Problem Stated Complaint: PAIN URINATING Time Seen by Provider: 09/03/19 21:47 Primary Care Provider: ROSEMARIE GEORGE FNP [Primary Care Provider] - Follow up as needed Mode of Arrival: Ambulatory Information source: Patient Notes: 33-year-old female presents to ED for difficulty urinating. She states she feels like there is a stone block in her ureter and she is not able to urinate. She states she is also not had appeared since July 31. She states she has had multiple kidney stones and urinary tract infections. Smokes 1/2 pack a day, no alcohol, states she smokes marijuana. Patient is alert and oriented respirations regular nonlabored speaking in full sentences. ADHD depression, anxiety, reflux, kidney stones, and migraines I have greeted and performed a rapid initial assessment of this patient. A comprehensive ED assessment and evaluation of the patient, analysis of test results and completion of medical decision making process will be conducted by an additional ED providers. TRAVEL OUTSIDE OF THE [place] IN LAST 30 DAYS: No - Related Data Allergies/Adverse Reactions: Sulfa (Sulfonamide Antibiotics) Allergy (Verified 05/02/19 14:02) tramadol Allergy (Verified 05/02/19 14:02) Past Medical History - Social History Family history: Reviewed & Not Pertinent - Past Medical History Cardiac Medical History: Denies: Hx Coronary Artery Disease, Hx Heart Attack, Hx Hypertension Pulmonary Medical History: Denies: Hx Asthma, Hx Bronchitis, Hx COPD, Hx Pneumonia Neurological Medical History: Reports: Hx Migraine. Denies: Hx Cerebrovascular Accident, Hx Seizures Renal/ Medical History: Reports: Hx Kidney Stones. Denies: Hx Peritoneal Dialysis Musculoskeltal Medical History: Denies Hx Arthritis Psychiatric Medical History: Reports: Hx Anxiety, Hx Attention Deficit Hyper activity Disorder, Hx Bipolar Disorder, Hx Depression Past Surgical History: Reports: Hx Section, Hx Cholecystectomy, Hx Genitourinary Surgery - stones, Hx Gynecologic Surgery - removal of fetus, Hx Kidney (Renal Surgery) - stones - Immunizations Immunizations up to date: Yes Hx Diphtheria, Pertussis, Tetanus Vaccination: Yes Physical Exam - Vital signs Vitals: Temp Pulse Resp BP Pulse Ox 98.2 F 129 H 20 139/66 H 99 09/03/19 21:43 09/03/19 21:43 09/03/19 21:43 09/03/19 21:43 09/03/19 21:43 Course - Vital Signs Vital signs: Temp Pulse Resp BP Pulse Ox 98.2 F 129 H 20 139/66 H 99 09/03/19 21:43 09/03/19 21:43 09/03/19 21:43 09/03/19 21:43 09/03/19 21:43 Doctor's Discharge - Discharge Referrals: ROSEMARIE GEORGE FNP [Primary Care Provider] - Follow up as needed
[2019-09-03 22:33] LABS: APPEARANCE,URINE SLIGHTLY-CLOUDY; BILIRUBIN,URINE NEGATIVE (NEGATIVE); COLOR,URINE YELLOW; GLUCOSE, URINE NEGATIVE (NEGATIVE); KETONES,URINE NEGATIVE (NEGATIVE); PROTEIN,URINE 30 mg/dL (NEGATIVE); UROBILINOGEN,URINE NEGATIVE mg/dL (<2.0)
[2019-09-04] MEDS ORDERED: OXYCODONE-ACETAMINOPHEN 5-325 MG TABLET PO ONE (00:18)
[2019-09-04] MEDS ORDERED: PROMETHAZINE HCL 25 MG TABLET PO ONE (00:18)
[2019-09-04] MEDS ORDERED: CEPHALEXIN 500 MG CAPSULE PO ONE (00:19)
--- NOTE | 2019-09-04 00:25 | ER Document Report ---
ED GI/ - General Chief Complaint: Urinary Problem Stated Complaint: PAIN URINATING Time Seen by Provider: 09/03/19 21:47 Primary Care Provider: ROSEMARIE GEORGE FNP [Primary Care Provider] - Follow up as needed Mode of Arrival: Ambulatory Notes: Patient is a 33-year-old female that comes to the emergency department for chief complaint of difficulty urinating which started earlier today. She is also had some intermittent lower abdominal pain which is mild. She also reports some bilateral lower flank pain intermittent leg today. She denies vomiting but reported vague nausea. She denies fever. She states she wonders if she is . She also has a history of kidney stones in the past lot of them in the past. She denies abnormal vaginal discharge or vaginal bleeding. Past m edical history otherwise includes anxiety/depression and GERD. TRAVEL OUTSIDE OF THE [place] IN LAST 30 DAYS: No - Related Data Allergies/Adverse Reactions: Sulfa (Sulfonamide Antibiotics) Allergy (Verified 05/02/19 14:02) tramadol Allergy (Verified 05/02/19 14:02) Home Medications: vyvance adhd. gabapentin. respiradone. effexor. ativan anxiety. muscle relaxer for kidney stones. mothers med for migraines (something stronger than tylenol or motrin). nexium gerd Past Medical History - General Information source: Patient - Social History Smoking Status: Current Every Day Smoker Frequency of alcohol use: None Drug Abuse: Marijuana Family History: Reviewed & Not Pertinent Patient has suicidal ideation: No Patient has homicidal ideation: No - Past Medical History Cardiac Medical History: Denies: Hx Coronary Artery Disease, Hx Heart Attack, Hx Hypertension Pulmonary Medical History: Denies: Hx Asthma, Hx Bronchitis, Hx COPD, Hx Pneumonia Neurological Medical History: Reports: Hx Migraine. Denies: Hx Cerebrovascular Accident, Hx Seizures Renal/ Medical History: Reports: Hx Kidney Stones. Denies: Hx Peritoneal Dialysis Musculoskeletal Medical History: Denies Hx Arthritis Psychiatric Medical History: Reports: Hx Anxiety, Hx Attention Deficit Hyperactivity Disorder, Hx Bipolar Disorder, Hx Depression Past Surgical History: Reports: Hx Section, Hx Cholecystectomy, Hx Genitourinary Surgery - stones, Hx Gynecologic Surgery - removal of fetus, Hx Kidney (Renal Surgery) - stones - Immunizations Immunizations up to date: Yes Hx Diphtheria, Pertussis, Tetanus Vaccination: Yes Review of Systems - Review of Systems Constitutional: No symptoms reported EENT: No symptoms reported Cardiovascular: No symptoms reported Respiratory: No symptoms reported Gastrointestinal: See HPI Genitourinary: See HPI Female Genitourinary: No symptoms reported Musculoskeletal: No symptoms reported Skin: No symptoms reported Hematologic/Lymphatic: No symptoms reported Neurological/Psychological: No symptoms reported Physical Exam - Vital signs Vitals: Temp Pulse Resp BP Pulse Ox 98.2 F 129 H 20 139/66 H 99 09/03/19 21:43 09/03/19 21:43 09/03/19 21:43 09/03/19 21:43 09/03/19 21:43 - Notes Notes: GENERAL: Alert, interacts well. No acute distress. HEAD: Normocephalic, atraumatic. EYES: Pupils equal, round, and reactive to light. Extraocular movements intact. ENT: Oral mucosa moist, tongue midline. Oropharynx unremarkable. LUNGS: Clear to auscultation bilaterally, no wheezes, rales, or rhonchi. No respiratory distress. HEART: Regular rate and rhythm. No murmur ABDOMEN: Patient reports tenderness with palpation of the lower abdomen but no wincing or noted tenderness. No guarding. No rigidity. Bowel sounds present throughout. GENITOURINARY: Deferred EXTREMITIES: Moves all 4 extremities spontaneously. No edema, normal radial and dorsalis pedis pulses bilaterally. No cyanosis. BACK: No CVA tenderness. No cervical, thoracic, lumbar midline tenderness. No saddle anesthesia, normal distal neurovascular exam. Moves all extremities in full range of motion. NEUROLOGICAL: Alert and oriented x3. Normal speech. Cranial nerves II through XII grossly intact. PSYCH: Normal affect, normal mood. SKIN: Warm, dry, normal turgor. No rashes or lesions noted. Course - Re-evaluation Re-evalutation: Patient initially tachycardic. She has reported but no noted lower abdominal tenderness, no CVA tenderness. She does report bilateral flank pain. She reports nausea. She is given pain and nausea medications. CBC shows mild leukocytosis, chemistry nonspecific, test negative, urinalysis does indicate an infection. Starting on antibiotics. Discussed with patient, because symptoms are bilateral, not severe, and she has had multiple CAT scans in the past instead of radiating her we will perform ultrasound instead. Ultrasound was extremely delayed because of technical difficulties with radiology imaging, I did apologize to the patient, fortunately the ultrasound was eventually returned and resulted and does not show any retained stones or hydronephrosis. Treating with antibiotics for suspected urinary tract infection, discussed follow-up and return precautions, patient states appreciation and agreement. Vital signs normalized. Stable at time of discharge. - Vital Signs Vital signs: Temp Pulse Resp BP Pulse Ox 98.8 F 97 18 118/76 95 09/04/19 04:03 09/04/19 04:03 09/04/19 04:03 09/04/19 04:03 09/04/19 04:03 - Laboratory Result Diagrams: 09/03/19 22:15 09/03/19 22:15 Laboratory results interpreted by me: 09/03/19 09/03/19 09/03/19 22:15 22:15 22:15 WBC 13.2 H RDW 14.5 H Absolute Neuts (auto) 9.5 H Est GFR (MDRD) Non-Af 55 L AST 40 H Urine Protein 30 H Urine Blood SMALL H Leukocyte Esterase Rfl TRACE H Urine Ascorbic Acid 40 H Discharge - Discharge Clinical Impression: Flank pain Abdominal pain Qualifiers: Abdominal location: lower abdomen, unspecified Qualified Code(s): R10.30 - Lower abdominal pain, unspecified Condition: Stable Disposition: HOME, SELF-CARE Instructions: Oral Narcotic Medication ([facility]) Additional Instructions: Your evaluation and work-up is consistent with a urinary tract infection, pr obably kidney infection. Take antibiotics as prescribed to completion. Take nausea and pain medication as prescribed as needed. Rest and drink plenty fluids. Your imaging does not indicate any current stones in the kidneys or passing stones. Follow-up with primary care. Return if you worsen including fever, uncontrolled vomiting, severe worsening pain, or any other concerning or worsening symptoms. Prescriptions: Cephalexin Monohydrate [Keflex 500 mg Capsule] 500 mg PO BID 7 Days #14 capsule Promethazine HCl [Phenergan 25 mg Tablet] 25 mg PO Q6H PRN #15 tablet PRN Reason: Referrals: ROSEMARIE GEORGE FNP [Primary Care Provider] - Follow up as needed
[2019-09-04 00:34] LABS: ABSOLUTE BASOPHILS # (AUTO) 0.1 10^3/uL (0.0-0.2); ABSOLUTE EOSINOPHILS # (AUTO) 0.3 10^3/uL (0.0-0.6); ABSOLUTE LYMPHOCYTES (AUTO) 2.6 10^3/uL (0.5-4.7); ABSOLUTE MONOCYTES (AUTO) 0.8 10^3/uL (0.1-1.4); ABSOLUTE NEUT (AUTO) 9.5 10^3/uL (1.7-8.2); BASOPHILS % (AUTO) 0.6 % (0-2); EOSINOPHILS % (AUTO) 2.2 % (0-6); HEMATOCRIT 40.2 % (36.0-47.0); HEMOGLOBIN 13.7 g/dL (12.0-15.5); LYMPHOCYTES % (AUTO) 19.7 % (13-45); MEAN CORPUSCULAR HEMOGLOBIN 30.8 pg (27.0-33.4); MEAN CORPUSCULAR VOLUME 91 fl (80-97); PLATELET COUNT 208 10^3/uL (150-450); RED BLOOD COUNT 4.44 10^6/uL (3.72-5.28); RED CELL DISTRIBUTION WIDTH 14.5 % (11.5-14.0); SEGMENTED NEUTROPHILS % (AUTO) 71.5 % (42-78); TOTAL CELLS COUNTED % (AUTO) 100 %; WHITE BLOOD COUNT 13.2 10^3/uL (4.0-10.5)
[2019-09-04 00:38] LABS: ALBUMIN 4.7 g/dL (3.5-5.0); ALKALINE PHOSPHATASE 93 U/L (38-126); ANION GAP 13 (5-19); ASPARTATE AMINO TRANSFERASE 40 U/L (14-36); BILIRUBIN,DIRECT 0.2 mg/dL (0.0-0.4); BILIRUBIN,TOTAL 0.3 mg/dL (0.2-1.3); BLOOD UREA NITROGEN 20 mg/dL (7-20); CALCIUM 10.1 mg/dL (8.4-10.2); CARBON DIOXIDE 22 mmol/L (22-30); CHLORIDE 106 mmol/L (98-107); GLUCOSE 104 mg/dL (75-110); POTASSIUM 4.1 mmol/L (3.6-5.0)
[2019-09-04 04:03] VITALS: BP 118/76
[2019-09-04] MEDS ORDERED: HYDROCODONE/ACETAMINOPHEN 5-325 MG (6 TAB/ER DISP) PO PRN (04:30)
--- NOTE | 2019-09-04 11:13 | RADIOLOGY REPORT (SQ) ---
EXAM DESCRIPTION: US RETROPERITONEUM COMPLETED DATE/TME: CLINICAL HISTORY: 33 years, Female, uti, flank pain, questionable hydro COMPARISON: 11/25/2018 TECHNIQUE: Ultrasound of the kidneys and urinary bladder LIMITATIONS: None. FINDINGS: The right kidney measures 11.4 x 6.0 x 5.5 cm. The left kidney measures 11.0 x 5.8 x 6.4 cm. Both kidneys demonstrate cortical thinning with hyperechoic renal medulla, similar to the prior. There is no hydronephrosis or perinephric fluid collection. The urinary bladder appears unremarkable. IMPRESSION: No significant change compared to the prior exam. Bilateral medullary nephrocalcinosis. No hydronephrosis. copyright 2010 [employer]- All Rights Reserved
== END 2019-09-04 04:42 | disposition home or self-care (01) ==
LOC: ER 21:39
DX: R10.9 Unspecified abdominal pain (principal); R10.30 Lower abdominal pain, unspecified; R39.198 Other difficulties with micturition; R10.31 Right lower quadrant pain; R10.32 Left lower quadrant pain; Z87.442 Personal history of urinary calculi; Z79.899 Other long term (current) drug therapy; F17.200 Nicotine dependence, unspecified, uncomplicated
CPT/HCPCS: 99283; 36415; 87086; 84703; 85025; 80053; 81001; 76770; A9270 ×4

== ENCOUNTER 2019-12-03 12:36 | Emergency (ER) | payer MEDICARE, OTHER ==
[2019-12-03 13:29] VITALS: BP 119/87
--- NOTE | 2019-12-03 13:29 | ER Document Report ---
HPI - HPI Time Seen by Provider: 12/03/19 13:20 Notes: Patient is a 34-year-old female who presents to the ED complaining of nasal congestion/discharge, dry nonproductive cough, fever, body ache 1d. Patient states that she is still eating and drinking without difficulties, but does have a decreased p.o. intake. She is still urinating normally having normal bowel movements. She denies any significant past medical history including cardiopulmonary history and immunocompromised conditions. + smoker. Denies any current headache, neck pain, sore throat, chest pain, palpitations, syncope, shortness of breath, wheeze, dyspnea, abdominal pain, nausea/vomiting/diarrhea, urinary retention, dysuria, hematuria, or rash. - ROS Systems Reviewed and Negative: Yes All other systems reviewed and negative - REPRODUCTIVE Reproductive: DENIES: : Past Medical History - Social History Smoking Status: Current Every Day Smoker Family History: Reviewed & Not Pertinent - Past Medical History Cardiac Medical History: Denies: Hx Coronary Artery Disease, Hx Heart Attack, Hx Hypertension Pulmonary Medical History: Denies: Hx Asthma, Hx Bronchitis, Hx COPD, Hx Pneumonia Neurological Medical History: Reports: Hx Migraine. Denies: Hx Cerebrovascular Accident, Hx Seizures Renal/ Medical History: Reports: Hx Kidney Stones. Denies: Hx Peritoneal Dialysis Musculoskeletal Medical History: Denies Hx Arthritis Psychiatric Medical History: Reports: Hx Anxiety, Hx Attention Deficit Hyperactivity Disorder, Hx Bipolar Disorder, Hx Depression Past Surgical History: Reports: Hx Section, Hx Cholecystectomy, Hx Genitourinary Surgery - stones, Hx Gynecologic Surgery - removal of fetus, Hx Kidney (Renal Surgery) - stones - Immunizations Immunizations up to date: Yes Hx Diphtheria, Pertussis, Tetanus Vaccination: Yes Vertical Provider Document - CONSTITUTIONAL Agree With Documented VS: Yes Notes: PHYSICAL EXAMINATION: GENERAL: Well-appearing, well-nourished and in no acute distress. A&Ox4. Answers questions appropriately. Moves comfortably w/o notable distress HEAD: Atraumatic, normocephalic. EYES: Pupils equal round and reactive to light, extraocular movements intact, sclera anicteric, conjunctiva are normal. ENT: EAC clear b/l. TM's intact b/l without erythema, fluid, or perforation. Nares patent and with clear discharge. oropharynx no erythema without exudates. No tonsilar hypertrophy without erythema or exudate. No palatine shift. Uvula midline. No tongue protrusion. No drooling, hoarseness, or airway compromise. Moist mucous membranes. No sinus tenderness. NECK: Normal range of motion, supple without lymphadenopathy. No rigidity/meningismus. LUNGS: Breath sounds clear to auscultation bilaterally and equal. No wheezes rales or rhonchi. No retractions HEART: Regular rate and rhythm without murmurs, rubs, gallops. ABDOMEN: Soft, nontender, nondistended abdomen. No guarding, no rebound. Normal bowel sounds present. No CVA tenderness bilaterally. NEUROLOGICAL: Normal speech, normal gait. PSYCH: Normal mood, normal affect. SKIN: Warm, Dry, normal turgor, no rashes or lesions noted. - INFECTION CONTROL TRAVEL OUTSIDE OF THE [place] IN LAST 30 DAYS: No Course - Re-evaluation Re-evalutation: 12/03/19 13:28 Patient is an afebrile, well-hydrated, 34-year-old female who presents to the ED with acute URI, suspect viral/influenza. Vitals are acceptable. PE is otherwise unremarkable. No labs or imaging warranted at this time based on H&P. Patient has no significant cardiopulmonary or immunocompromised medical conditions. Patient's lungs are clear to auscultation bilaterally without tachycardia, hypoxia, or tachypnea. Patient is tolerating p.o. without any difficulties. Thoroughly reviewed the risks, benefits, potential side effects, estimated cost without insurance with patient. After thorough review, patient declined Tamiflu at this time. Low suspicion for any meningitis, sepsis, peritonsillar/pharyngeal abscess, respiratory compromise, severe dehydration, or other emergent systemic condition at this time. Patient is aware this condition can change from initial presentation and she needs to monitor symptoms closely. Conservative measures otherwise for symptoms. Recheck with your PCM in 3-5 days. Return to the ED with any worsening/concerning symptoms otherwise as reviewed in discharge. Patient is in agreement. Discharge - Discharge Clinical Impression: Acute URI Condition: Stable Disposition: HOME, SELF-CARE Instructions: Upper Respiratory Illness ([facility]) Additional Instructions: Maintain adequate fluid intake tylenol/ibuprofen as needed alternating every 3 hours for fever/body ache over the counter cold medication as needed for symptoms Humidified air may help Wash your hands regularly Wear a mask when coughing F/u: with your PCM in 3-5 days for a recheck Return to the ED with any fever, altered mental status/behavior, chest pain, palpitations, syncope, headache, neck pain/stiffness, shortness of breath, chest pains, wheezing, drooling, trouble swallowing/breathing, abdominal pain, n/v/d, rash, or worsening/concerning symptoms otherwise. Forms: Smoking Cessation Education Referrals: ROSEMARIE GEORGE FNP [Primary Care Provider] - Follow up as needed
== END 2019-12-03 13:39 | disposition home or self-care (01) ==
LOC: ER 12:36
DX: J06.9 Acute upper respiratory infection, unspecified (principal); R09.81 Nasal congestion; R09.89 Other specified symptoms and signs involving the circulatory and respiratory systems; R05 Cough; R50.9 Fever, unspecified; R52 Pain, unspecified; F17.200 Nicotine dependence, unspecified, uncomplicated
CPT/HCPCS: 99283

== ENCOUNTER 2020-01-02 18:35 | Emergency (ER) | payer MEDICARE, OTHER ==
[2020-01-02 18:56] VITALS: BP 130/72
[2020-01-02] MEDS ORDERED: ONDANSETRON 4 MG TAB.RAPDIS PO ONE (19:19)
--- NOTE | 2020-01-02 19:22 | ER Document Report ---
HPI - HPI Time Seen by Provider: 01/02/20 19:16 Notes: CHIEF COMPLAINT: Wrist pain and dysuria HPI: 34-year-old female presenting to the emergency department complaining of left wrist pain and dysuria. Patient states that she had a fall mechanically 3 days ago backwards with her hand and wrist outstretched. Had no discomfort in the wrist over the last 3 days but today around 3 PM began having increased discomfort in the radial side of the left wrist with flexion extension. Denies elbow pain. Denies numbness or tingling in the fingertips. Patient also reports 3 or 4 days of a sensation of urgency says she has a history of frequent UTIs along with kidney stones. Follows with Dr. Hardy at [facility] for her kidney stones ROS: See HPI - all other systems were reviewed and are otherwise negative Constitutional: no fever Eyes: no drainage, no blurred vision ENT: no runny nose, no sore throat Cardiovascular: no chest pain Resp: no SOB, no cough GI: no vomiting, no diarrhea, no abdominal pain : Positive dysuria Integumentary: no rash Allergy: no hives Musculoskeletal: Positive extremity pain or swelling Neurological: no numbness/tingling, no weakness MEDICATIONS: I agree with the patient medications as charted by the RN. ALLERGIES: I agree with the allergies as charted by the RN. PAST MEDICAL HISTORY/PAST SURGICAL HISTORY: Reviewed and agree as charted by RN. SOCIAL HISTORY: Reviewed and agree as charted by RN. FAMILY HISTORY: No significant familial comorbid conditions directly related to patient complaint EXAM: Reviewed vital signs as charted by RN. CONSTITUTIONAL: Alert and oriented and responds appropriately to questions. Well-appearing; well-nourished, mild distress secondary to pain HEAD: Normocephalic; atraumatic EYES: PERRL; Conjunctivae clear, sclerae non-icteric ENT: normal nose; no rhinorrhea; moist mucous membranes NECK: Supple without meningismus CARD: symmetric distal pulses RESP: Normal chest excursion without splinting or tachypnea ABD/GI: Normal bowel sounds; non-distended; soft, non-tender, no rebound, no guarding; no palpable organomegaly or masses. BACK: The back appears normal and is non-tender to palpation, there is no CVA tenderness EXT: Normal ROM in all joints; non-tender to palpation; no cyanosis, no eff usions, no edema. There is no snuffbox tenderness on palpation. Increased discomfort in the radial side of the left wrist on flexion extension. No tenderness over the radial head of the left elbow. Patient able to fully flex and extend the fingers of the left hand but was abduct the thumb. SKIN: Normal color for age and race; warm; dry; good turgor; no acute lesions noted NEURO: Moves all extremities equally; Motor and sensory function intact PSYCH: The patient's mood and manner are appropriate. Grooming and personal hygiene are appropriate. MDM: 34-year-old female with what is likely a sprain of the wrist we will obtain an x-ray for fracture given her injury. She also complains of frequency of urination will obtain urinalysis - REPRODUCTIVE Reproductive: DENIES: : Past Medical History - Social History Smoking Status: Unknown if Ever Smoked Family History: Reviewed & Not Pertinent - Past Medical History Cardiac Medical History: Denies: Hx Coronary Artery Disease, Hx Heart Attack, Hx Hypertension Pulmonary Medical History: Denies: Hx Asthma, Hx Bronchitis, Hx COPD, Hx Pneumonia Neurological Medical History: Reports: Hx Migraine. Denies: Hx Cerebrovascular Accident, Hx Seizures Renal/ Medical History: Reports: Hx Kidney Stones. Denies: Hx Peritoneal Dialysis Musculoskeletal Medical History: Denies Hx Arthritis Psychiatric Medical History: Reports: Hx Anxiety, Hx Attention Deficit Hyperactivity Disorder, Hx Bipolar Disorder, Hx Depression Past Surgical History: Reports: Hx Section, Hx Cholecystectomy, Hx Genitourinary Surgery - stones, Hx Gynecologic Surgery - removal of fetus, Hx Kidney (Renal Surgery) - stones - Immunizations Immunizations up to date: Yes Hx Diphtheria, Pertussis, Tetanus Vaccination: Yes Vertical Provider Document - INFECTION CONTROL TRAVEL OUTSIDE OF THE [place]. IN LAST 30 DAYS: No Course - Re-evaluation Re-evalutation: 01/02/20 20:02 Wrist x-ray does not show evidence of a fracture. Will place in a Velcro splint for comfort. Urine does suggest a UTI will place patient on Keflex, Pyridium - Vital Signs Vital signs: Temp Pulse Resp BP Pulse Ox 97.9 F 90 16 130/72 H 96 01/02/20 18:55 01/02/20 18:55 01/02/20 18:55 01/02/20 18:55 01/02/20 18:55 Discharge - Discharge Clinical Impression: Fall Qualifiers: Encounter type: initial encounter Qualified Code(s): W19.XXXA - Unspecified fall, initial encounter Left wrist sprain Qualifiers: Encounter type: initial encounter Qualified Code(s): S63.502A - Unspecified sprain of left wrist, initial encounter UTI (urinary tract infection) Qualifiers: Urinary tract infection type: acute cystitis Hematuria presence: with hematuria Qualified Code(s): N30.01 - Acute cystitis with hematuria Condition: Stable Disposition: HOME, SELF-CARE Instructions: Urinary Tract Infection ([facility]) Additional Instructions: Use the wrist splint for comfort for the next 3 to 5 days. Ice the wrist twice daily for 5 to 10 minutes at a time do not place ice directly on the skin. Take the naproxen consistently for pain. Take Keflex to treat the urinary infection Pyridium to treat the urgency follow-up with your primary care provider for reevaluation, follow-up the wrist injury with orthopedics Prescriptions: Cephalexin Monohydrate [Keflex 500 mg Capsule] 500 mg PO Q6H 7 Days #28 capsule Naproxen 500 mg PO BID PRN #14 tablet PRN Reason: Phenazopyridine HCl [Pyridium 100 Mg Tablet] 100 mg PO TID #9 tablet Referrals: ROSEMARIE GEORGE FNP [Primary Care Provider] - Follow up as needed SORAYA BERGERON MD [ACTIVE PROVISIONAL STAFF] - Follow up as needed
[2020-01-02 19:49] LABS: APPEARANCE,URINE CLEAR; BILIRUBIN,URINE NEGATIVE (NEGATIVE); COLOR,URINE YELLOW; GLUCOSE, URINE NEGATIVE (NEGATIVE); KETONES,URINE NEGATIVE (NEGATIVE); LEUKOCYTE ESTERASE,URINE TRACE (NEGATIVE); NITRITE,URINE NEGATIVE (NEGATIVE); PROTEIN,URINE NEGATIVE (NEGATIVE); URINE SPECIFIC GRAVITY 1.023; UROBILINOGEN,URINE NEGATIVE mg/dL (<2.0)
[2020-01-02] MEDS ORDERED: CEPHALEXIN 500 MG CAPSULE PO ONE (19:50)
[2020-01-02] MEDS ORDERED: NAPROXEN 250 MG TABLET PO ONE (19:51)
--- NOTE | 2020-01-02 19:58 | RADIOLOGY REPORT (SQ) ---
EXAM DESCRIPTION: WRIST LEFT 3 VIEWS COMPLETED DATE/TIME: 01/02/2020 7:42 pm REASON FOR STUDY: fall wrist pain COMPARISON: None. NUMBER OF VIEWS: Three views left wrist LIMITATIONS: None. FINDINGS: There is no acute or significant bone, joint or soft tissue abnormality. OTHER: No other significant finding. IMPRESSION: NORMAL STUDY. TECHNICAL DOCUMENTATION: JOB ID: [id number] Reading location - IP/workstation name: [email or web address]
[2020-01-02] MEDS ORDERED: CIPROFLOXACIN HCL 500 MG TABLET PO ONE (20:47)
[2020-01-02] MEDS ORDERED: CEFTRIAXONE INJ 1000 MG VIAL IM ONE (20:55)
[2020-01-02] MEDS ORDERED: LIDOCAINE 1% INJ-PF (10 MG/ML) 30 ML SDV ONE (21:00)
[2020-01-02] MEDS ORDERED: LIDOCAINE 1% INJ (10 MG/ML) 10 ML MDV INJ ONE (21:17)
== END 2020-01-02 21:20 | disposition home or self-care (01) ==
LOC: ER 18:35
DX: S63.502A Unspecified sprain of left wrist, initial encounter (principal); W19.XXXA Unspecified fall, initial encounter; N30.01 Acute cystitis with hematuria
CPT/HCPCS: 99283; 96372; 87086; 81025; 81001; 73110; A9270 ×2; J0696; S0119

== ENCOUNTER 2020-01-18 21:26 | Emergency (ER) | payer MEDICARE, OTHER ==
[2020-01-18 21:30] VITALS: BP 125/72
--- NOTE | 2020-01-18 21:35 | ER Document Report ---
HPI - HPI Time Seen by Provider: 01/18/20 21:30 Pain Level: 1 Notes: CHIEF COMPLAINT: Sore throat for 3 days HPI: 34-year-old female presenting to the emergency department for evaluation of sore throat and painful swallowing over the last 3 days, no fever. Reports that her glands are swollen. Denies other complaints at this time ROS: See HPI - all other systems were reviewed and are otherwise negative Constitutional: no fever Eyes: no drainage, no blurred vision ENT: no runny nose, positive sore throat Cardiovascular: no chest pain Resp: no SOB, no cough GI: no vomiting, no diarrhea, no abdominal pain : no dysuria Integumentary: no rash Allergy: no hives Musculoskeletal: no extremity pain or swelling Neurological: no numbness/tingling, no weakness MEDICATIONS: I agree with the patient medications as charted by the RN. ALLERGIES: I agree with the allergies as charted by the RN. PAST MEDICAL HISTORY/PAST SURGICAL HISTORY: Reviewed and agree as charted by RN. SOCIAL HISTORY: Reviewed and agree as charted by RN. FAMILY HISTORY: No significant familial comorbid conditions directly related to patient complaint EXAM: Reviewed vital signs as charted by RN. CONSTITUTIONAL: Alert and oriented and responds appropriately to questions. Well-appearing; well-nourished HEAD: Normocephalic; atraumatic EYES: PERRL; Conjunctivae clear, sclerae non-icteric ENT: normal nose; no rhinorrhea; moist mucous membranes; posterior pharynx with mild bilateral tonsillar erythema, some ulcerative lesions on the uvula. Phonation is normal, no uvula edema or deviation, no tonsillar hypertrophy NECK: Supple without meningismus; non-tender; positive anterior cervical lymphadenopathy, no masses CARD: Capillary refill less than 3 seconds; symmetric distal pulses RESP: Normal chest excursion without splinting or tachypnea ABD/GI: non distended EXT: Normal ROM in all joints; no cyanosis, no effusions, no edema SKIN: Normal color for age and race; warm; dry; good turgor; no acute lesions noted NEURO: Moves all extremities equally; Motor and sensory function intact PSYCH: The patient's mood and manner are appropriate. Grooming and personal hygiene are appropriate. MDM: 34-year-old female with sore throat for 3 days without fever. Will check rapid strep, Monospot - REPRODUCTIVE Reproductive: DENIES: : Past Medical History - Social History Smoking Status: Former Smoker Chew tobacco use (# tins/day): No Frequency of alcohol use: None Drug Abuse: Marijuana Family History: Reviewed & Not Pertinent Patient has suicidal ideation: No Patient has homicidal ideation: No - Past Medical History Cardiac Medical History: Denies: Hx Coronary Artery Disease, Hx Heart Attack, Hx Hypertension Pulmonary Medical History: Denies: Hx Asthma, Hx Bronchitis, Hx COPD, Hx Pneumonia Neurological Medical History: Reports: Hx Migraine. Denies: Hx Cerebrovascular Accident, Hx Seizures Renal/ Medical History: Reports: Hx Kidney Stones. Denies: Hx Peritoneal Dialysis Musculoskeletal Medical History: Denies Hx Arthritis Psychiatric Medical History: Reports: Hx Anxiety, Hx Attention Deficit Hyperactivity Disorder, Hx Bipolar Disorder, Hx Depression Past Surgical History: Reports: Hx Section, Hx Cholecystectomy, Hx Genitourinary Surgery - stones, Hx Gynecologic Surgery - removal of fetus, Hx Kidney (Renal Surgery) - stones - Immunizations Immunizations up to date: Yes Hx Diphtheria, Pertussis, Tetanus Vaccination: Yes Vertical Provider Document - INFECTION CONTROL TRAVEL OUTSIDE OF THE U.S. IN LAST 30 DAYS: No Course - Re-evaluation Re-evalutation: 01/18/20 22:30 Patient is positive for strep throat negative for mononucleosis. Will treat with amoxicillin and Decadron in the ER, discharged on amoxicillin follow-up PCP - Vital Signs Vital signs: Temp Pulse Resp BP Pulse Ox 98.1 F 86 20 125/72 99 01/18/20 21:29 01/18/20 21:29 01/18/20 21:29 01/18/20 21:29 01/18/20 21:29 Discharge - Discharge Clinical Impression: Strep pharyngitis Condition: Stable Disposition: HOME, SELF-CARE Additional Instructions: 1. medicines as prescribed 2. take Motrin/Tylenol consistently for pain and fever 3. hydrate well at home with fluids/juices 4. recheck with your PCP for further evaluation and treatment, call for appt. 5. return to the ED for any difficulty swallowing or worsening condition 6. warm salt water gargles for throat discomfort 3 times daily 7. Your strep test today was positive. Your mononucleosis test today was negative Prescriptions: Amoxicillin 1 tab PO TID #30 tab Referrals: ROSEMARIE GEORGE FNP [Primary Care Provider] - Follow up as needed
[2020-01-18] MEDS ORDERED: AMOXICILLIN TRIHYDRATE 500 MG CAPSULE PO ONE (22:30)
[2020-01-18] MEDS ORDERED: DEXAMETHASONE 4 MG TABLET PO ONE (22:30)
== END 2020-01-18 22:56 | disposition home or self-care (01) ==
LOC: ER 21:26
DX: J02.0 Streptococcal pharyngitis (principal); F12.10 Cannabis abuse, uncomplicated; Z87.891 Personal history of nicotine dependence
CPT/HCPCS: 99283; 36415; 87880; 86308; A9270 ×2; J8540

== ENCOUNTER 2020-02-13 12:24 | Emergency (ER) | payer MEDICARE, OTHER ==
[2020-02-13] MEDS ORDERED: KETOROLAC TROMETHAMINE INJ/PF 30 MG/1 ML SDV IV ONE (12:34)
[2020-02-13] MEDS ORDERED: ONDANSETRON HCL INJ/PF 4 MG/2 ML SDV IV ONE (12:34)
[2020-02-13] MEDS ORDERED: NORMAL SALINE 1000 ML 1,000 ML IV ONE (12:34)
--- NOTE | 2020-02-13 12:34 | ER Document Report ---
ED Medical Screen (RME) - General Stated Complaint: FLANK PAIN Time Seen by Provider: 02/13/20 12:28 Primary Care Provider: ROSEMARIE GEORGE FNP [Primary Care Provider] - Follow up as needed TRAVEL OUTSIDE OF THE U.S. IN LAST 30 DAYS: No - HPI Notes: 02/13/20 12:34 34-year-old female with a history of nephrolithiasis presents to the emergency room for complaints of right >left flank pain that is become progressively worse over the last 2 days. Patient states she has a urologist at [facility] and sees a all terrain vehicle racer in [place] due to having such severe kidney problems in the past. Pain is worse with time, nothing makes better. Last menstrual cycle was 3 weeks ago. denies fevers, chills, chest pain,palpitations, shortness of breath, dyspnea,vomiting, diarrhea, abdominal pain, weakness, bowel or bladder dysfunction or saddle anesthesia I have greeted and performed a rapid initial assessment of this patient. A comprehensive ED assessment and evaluation of the patient, analysis of test results and completion of the medical decision making process will be conducted by additional ED providers. PHYSICAL EXAMINATION: GENERAL: Well-appearing, well-nourished and in no acute distress. CV: s1, s2 regular LUNGS: No respiratory distress abd: R>L CVA tenderness appreciated NEUROLOGICAL: Normal speech, normal gait. SKIN: Warm, Dry, normal turgor, no rashes or lesions noted. - Related Data Allergies/Adverse Reactions: Sulfa (Sulfonamide Antibiotics) Allergy (Verified 01/02/20 19:16) tramadol Allergy (Verified 01/02/20 19:16) Past Medical History - Social History Family history: Reviewed & Not Pertinent - Past Medical History Cardiac Medical History: Denies: Hx Coronary Artery Disease, Hx Heart Attack, Hx Hypertension Pulmonary Medical History: Denies: Hx Asthma, Hx Bronchitis, Hx COPD, Hx Pneumonia Neurological Medical History: Reports: Hx Migraine. Denies: Hx Cerebrovascular Accident, Hx Seizures Renal/ Medical History: Reports: Hx Kidney Stones. Denies: Hx Peritoneal Dialysis Musculoskeltal Medical History: Denies Hx Arthritis Psychiatric Medical History: Reports: Hx Anxiety, Hx Attention Deficit Hyperactivity Disorder, Hx Bipolar Disorder, Hx Depression Past Surgical History: Reports: Hx Section, Hx Cholecystectomy, Hx Genitourinary Surgery - stones, Hx Gynecologic Surgery - removal of fetus, Hx Kidney (Renal Surgery) - stones - Immunizations Immunizations up to date: Yes Hx Diphtheria, Pertussis, Tetanus Vaccination: Yes Doctor's Discharge - Discharge Referrals: ROSEMARIE GEORGE FNP [Primary Care Provider] - Follow up as needed
--- NOTE | 2020-02-13 13:00 | ER Document Report ---
ED GI/ - General Chief Complaint: Flank Pain Stated Complaint: FLANK PAIN Time Seen by Provider: 02/13/20 12:28 Primary Care Provider: ROSEMARIE GEORGE FNP [Primary Care Provider] - Follow up as needed Notes: CHIEF COMPLAINT: Bilateral flank pain HPI: 34-year-old female who states that she has history of "100s of kidney stones" and follows with Dr. Hardy locally and also with urology in [place] presenting for 1 to 2 weeks of progressive bilateral flank pain. States she does have some frequency of urination denies vaginal discharge. States pain is worse on the right but also on the left side. She does have history of frequent UTIs. Has not had a fever or vomiting but does complain of some nausea. States pain worse in the last 2 days ROS: See HPI - all other systems were reviewed and are otherwise negative Constitutional: no fever Eyes: no drainage, no blurred vision ENT: no runny nose, no sore throat Cardiovascular: no chest pain Resp: no SOB, no cough GI: no vomiting, no diarrhea, + abdominal pain, positive nausea : no dysuria Integumentary: no rash Allergy: no hives Musculoskeletal: no extremity pain or swelling Neurological: no numbness/tingling, no weakness MEDICATIONS: I agree with the patient medications as charted by the RN. ALLERGIES: I agree with the allergies as charted by the RN. PAST MEDICAL HISTORY/PAST SURGICAL HISTORY: Reviewed and agree as charted by RN. SOCIAL HISTORY: Reviewed and agree as charted by RN. FAMILY HISTORY: No significant familial comorbid conditions directly related to patient complaint EXAM: Reviewed vital signs as charted by RN. CONSTITUTIONAL: Alert and oriented and responds appropriately to questions. Well-appearing; well-nourished HEAD: Normocephalic; atraumatic EYES: PERRL; Conjunctivae clear, sclerae non-icteric ENT: normal nose; no rhinorrhea; moist mucous membranes; pharynx without lesions noted, no uvula edema or deviation, no tonsillar hypertrophy, phonation normal NECK: Supple without meningismus; non-tender; no cervical lymphadenopathy, no masses CARD: RRR; no murmurs, no clicks, no rubs, no gallops; symmetric distal pulses RESP: Normal chest excursion without splinting or tachypnea; breath sounds clear and equal bilaterally; no wheezes, no rhonchi, no rales, pulse oximetry 98% on room air not hypoxic ABD/GI: Normal bowel sounds; non-distended; soft, mild tenderness bilateral flanks on palpation, no rebound, no guarding; no palpable organomegaly or masses. BACK: The back appears normal and is non-tender to palpation, there is no CVA tenderness EXT: Normal ROM in all joints; non-tender to palpation; no cyanosis, no effusions, no edema SKIN: Normal color for age and race; warm; dry; good turgor; no acute lesions noted NEURO: Moves all extremities equally; Motor and sensory function intact PSYCH: The patient's mood and manner are appropriate. Grooming and personal hygiene are appropriate. MDM: 34-year-old female with history of nephrolithiasis presenting for bilateral flank pain worse in the last 2 days but has been ongoing for 2 to 3 weeks. She also states she has history of frequent UTIs. Has not had fever. Will obtain basic screening labs, plan for CT given her history of renal colic to evaluate for hydronephrosis or other intra-abdominal pathology TRAVEL OUTSIDE OF THE [place].S. IN LAST 30 DAYS: No - Related Data Allergies/Adverse Reactions: Sulfa (Sulfonamide Antibiotics) Allergy (Verified 01/02/20 19:16) tramadol Allergy (Verified 01/02/20 19:16) Past Medical History - Social History Smoking Status: Current Every Day Smoker Chew tobacco use (# tins/day): No Frequency of alcohol use: None Drug Abuse: None Family History: Reviewed & Not Pertinent Patient has suicidal ideation: No Patient has homicidal ideation: No - Past Medical History Cardiac Medical History: Denies: Hx Coronary Artery Disease, Hx Heart Attack, Hx Hypertension Pulmonary Medical History: Denies: Hx Asthma, Hx Bronchitis, Hx COPD, Hx Pneumonia Neurological Medical History: Reports: Hx Migraine. Denies: Hx Cerebrovascular Accident, Hx Seizures Renal/ Medical History: Reports: Hx Kidney Stones. Denies: Hx Peritoneal Dialysis Musculoskeletal Medical History: Denies Hx Arthritis Psychiatric Medical History: Reports: Hx Anxiety, Hx Attention Deficit Hyperactivity Disorder, Hx Bipolar Disorder, Hx Depression Past Surgical History: Reports: Hx Section, Hx Cholecystectomy, Hx Genitourinary Surgery - stones, Hx Gynecologic Surgery - removal of fetus, Hx Kidney (Renal Surgery) - stones - Immunizations Immunizations up to date: Yes Hx Diphtheria, Pertussis, Tetanus Vaccination: Yes Physical Exam - Vital signs Vitals: Temp Pulse Resp BP Pulse Ox 97.7 F 91 18 121/70 100 02/13/20 12:28 02/13/20 12:28 02/13/20 12:28 02/13/20 12:28 02/13/20 12:28 Course - Re-evaluation Re-evalutation: 02/13/20 15:21 CT imaging did not show acute emergent abnormalities. Lab work did not show acute emergent abnormalities. Urine did not show evidence of infection. Patient does not seem to be in any acute distress when I discussed all this with her. We will treat patient with Bentyl for possible abdominal spasm, follow-up with PCP, return instructions given - Vital Signs Vital signs: Temp Pulse Resp BP Pulse Ox 99.0 F 91 24 H 117/72 97 02/13/20 13:00 02/13/20 12:28 02/13/20 13:01 02/13/20 13:00 02/13/20 13:01 - Laboratory Result Diagrams: 02/13/20 13:15 02/13/20 13:15 Laboratory results interpreted by me: 02/13/20 02/13/20 02/13/20 12:37 13:15 13:15 RDW 14.7 H ALT 37 H Urine Blood SMALL H Discharge - Discharge Clinical Impression: Bilateral flank pain Condition: Stable Disposition: HOME, SELF-CARE Additional Instructions: Your lab work and CT imaging did not suggest a urinary infection or acute passage of a kidney stone. Follow-up with your primary care provider for ree valuation of symptoms. Take the Bentyl for abdominal pain or spasm. Return for onset of fever greater than 101 or worsening pain or problems Prescriptions: Dicyclomine HCl [Bentyl 20 mg Tablet] 20 mg PO Q6H PRN #20 tablet PRN Reason: Referrals: ROSEMARIE GEORGE FNP [Primary Care Provider] - Follow up as needed
[2020-02-13 13:08] LABS: APPEARANCE,URINE CLEAR; BILIRUBIN,URINE NEGATIVE (NEGATIVE); COLOR,URINE COLORLESS; GLUCOSE, URINE NEGATIVE (NEGATIVE); KETONES,URINE NEGATIVE (NEGATIVE); LEUKOCYTE ESTERASE,URINE NEGATIVE (NEGATIVE); NITRITE,URINE NEGATIVE (NEGATIVE); PROTEIN,URINE NEGATIVE (NEGATIVE); URINE SPECIFIC GRAVITY 1.004; UROBILINOGEN,URINE NEGATIVE mg/dL (<2.0)
[2020-02-13 13:29] LABS: ABSOLUTE EOSINOPHILS # (AUTO) 0.2 10^3/uL (0.0-0.6); ABSOLUTE LYMPHOCYTES (AUTO) 2.8 10^3/uL (0.5-4.7); ABSOLUTE MONOCYTES (AUTO) 0.5 10^3/uL (0.1-1.4); ABSOLUTE NEUT (AUTO) 3.7 10^3/uL (1.7-8.2); BASOPHILS % (AUTO) 0.7 % (0-2); EOSINOPHILS % (AUTO) 2.4 % (0-6); HEMATOCRIT 37.4 % (36.0-47.0); HEMOGLOBIN 12.9 g/dL (12.0-15.5); LYMPHOCYTES % (AUTO) 38.7 % (13-45); MEAN CORPUSCULAR HEMOGLOBIN 31.1 pg (27.0-33.4); MEAN CORPUSCULAR HGB CONC 34.4 g/dL (32.0-36.0); MEAN CORPUSCULAR VOLUME 90 fl (80-97); MONOCYTES % (AUTO) 7.3 % (3-13); PLATELET COUNT 211 10^3/uL (150-450); RED BLOOD COUNT 4.14 10^6/uL (3.72-5.28); RED CELL DISTRIBUTION WIDTH 14.7 % (11.5-14.0); SEGMENTED NEUTROPHILS % (AUTO) 50.9 % (42-78); TOTAL CELLS COUNTED % (AUTO) 100 %; WHITE BLOOD COUNT 7.3 10^3/uL (4.0-10.5)
--- NOTE | 2020-02-13 13:44 | RADIOLOGY REPORT (SQ) ---
EXAM DESCRIPTION: CT ABD/PELVIS NO ORAL OR IV IMAGES COMPLETED DATE/TIME: 02/13/2020 1:30 pm REASON FOR STUDY: kidney stone COMPARISON: 07/23/2018 TECHNIQUE: CT scan of the abdomen and pelvis performed without intravenous or oral contrast. Images reviewed with lung, soft tissue, and bone windows. Reconstructed coronal and sagittal MPR images revi ewed. All images stored on PACS. All CT scanners at this facility use dose modulation, iterative reconstruction, and/or weight based d osing when appropriate to reduce radiation dose to as low as reasonably achievable (ALARA). [facility]: Dose Right [facility]: CareDose [facility]: Dose Right [facility]: Teradose 4D [facility]: Instant API RADIATION DOSE: CT Rad equipment meets quality standard of care and radiation dose reduction techniq ues were employed. CTDIvol: 10.7 mGy. DLP: 591 mGy-cm.mGy. LIMITATIONS: None. FINDINGS: LOWER CHEST: No significant findings. No nodules or infiltrates. NON-CONTRASTED LIVER, SPLEEN, ADRENALS: Evaluation limited by lack of IV contrast. No identified sign ificant masses. PANCREAS: No masses. No peripancreatic inflammatory changes. GALLBLADDER: Surgically absent. RIGHT KIDNEY AND URETER: No suspicious masses. Assessment limited by lack of IV contrast. Multiple renal calculi measuring up to 8 mm. No hydronephrosis or hydroureter. LEFT KIDNEY AND URETER: No suspicious masses. Assessment limited by lack of IV contrast. Multiple r enal calculi measuring up to 8 mm. No hydronephrosis or hydroureter. AORTA AND RETROPERITONEUM: No aneurysm. No retroperitoneal masses or adenopathy. BOWEL AND PERITONEAL CAVITY: No obvious masses or inflammatory changes. No free fluid. APPENDIX: Not visualized. PELVIS, BLADDER, AND ABDOMINAL WALL:No abnormal masses. No free fluid. Bladder normal. BONES: No significant findings. OTHER: No other significant finding. IMPRESSION: Nonobstructing bilateral renal calculi. COMMENT: Quality ID # [id number]: Final reports with documentation of one or more dose reduction techniques (e.g., Automated exposure control, adjustment of the mA and/or kV according to patient size, use of iterative reconstruction technique) TECHNICAL DOCUMENTATION: JOB ID: [id number] 2010 [employer]- All Rights Reserved Reading location - IP/workstation name: [email or web address]
[2020-02-13 13:50] LABS: ALBUMIN 4.4 g/dL (3.5-5.0); ALKALINE PHOSPHATASE 84 U/L (38-126); ANION GAP 8 (5-19); ASPARTATE AMINO TRANSFERASE 30 U/L (14-36); BILIRUBIN,TOTAL 0.3 mg/dL (0.2-1.3); BLOOD UREA NITROGEN 14 mg/dL (7-20); CALCIUM 9.4 mg/dL (8.4-10.2); CARBON DIOXIDE 24 mmol/L (22-30); CHLORIDE 107 mmol/L (98-107); GLUCOSE 85 mg/dL (75-110); POTASSIUM 4.5 mmol/L (3.6-5.0); TOTAL PROTEIN 7.5 g/dL (6.3-8.2)
[2020-02-13] MEDS ORDERED: ACETAMINOPHEN 325 MG TABLET PO ONE (15:21)
[2020-02-13] MEDS ORDERED: DICYCLOMINE HCL INJ 20 MG/2 ML AMPULE IM ONE (15:21)
[2020-02-13 16:47] VITALS: BP 120/72
== END 2020-02-13 16:28 | disposition home or self-care (01) ==
LOC: ER 12:24
DX: R10.9 Unspecified abdominal pain (principal); R35.0 Frequency of micturition; R11.0 Nausea; F17.200 Nicotine dependence, unspecified, uncomplicated; Z87.440 Personal history of urinary (tract) infections; Z87.442 Personal history of urinary calculi; Z90.49 Acquired absence of other specified parts of digestive tract; Z88.2 Allergy status to sulfonamides; Z88.6 Allergy status to analgesic agent
CPT/HCPCS: 99284; 36415; 83690; 85025; 81025; 80053; 81001; 74176; A9270; J0500; J1885; J2405; J7030

== ENCOUNTER 2020-04-25 20:22 | Emergency (ER) | payer MEDICARE ==
[2020-04-25 20:44] VITALS: BP 123/75
== END 2020-04-25 22:11 | disposition left against medical advice (07) ==
LOC: ER 20:22
DX: Z53.21 Procedure and treatment not carried out due to patient leaving prior to being seen by health care provider (principal)

== ENCOUNTER 2020-05-10 09:08 | Observation (INO) | payer MEDICARE, OTHER ==
[2020-05-10] MEDS ORDERED: NORMAL SALINE 1000 ML 1,000 ML IV ONE ×2 (09:26→10:11)
[2020-05-10] MEDS ORDERED: PHENYLEPHRINE HCL INJ/PF 10 MG/1 ML SDV ONE (09:27)
[2020-05-10] MEDS ORDERED: NEOSTIGMINE METHYLSULFATE 10 MG/10 ML VIAL ONE (09:27)
[2020-05-10] MEDS ORDERED: LIDOCAINE 2% INJ-PF (20 MG/ML) 2 ML AMPUL ONE (09:27)
[2020-05-10] MEDS ORDERED: KETOROLAC TROMETHAMINE 60 MG/2 ML SDV ONE (09:27)
[2020-05-10] MEDS ORDERED: DEXAMETHASONE SOD PHOSPHATE INJ 4 MG/1 ML VIAL ONE (09:27)
[2020-05-10] MEDS ORDERED: METOCLOPRAMIDE HCL INJ/PF 10 MG/2 ML SDV ONE (09:27)
[2020-05-10] MEDS ORDERED: GLYCOPYRROLATE 1 MG/5 ML VIAL ONE (09:27)
[2020-05-10] MEDS ORDERED: ONDANSETRON HCL INJ/PF 4 MG/2 ML SDV ONE ×2 (09:27→14:18)
[2020-05-10] MEDS ORDERED: ROCURONIUM BROMIDE INJ 50 MG/5 ML VIAL IV ONE (09:27)
[2020-05-10] MEDS ORDERED: MORPHINE SULFATE 10 MG/ML INJ IV ONE (09:32)
[2020-05-10 09:34] LABS: ABSOLUTE BASOPHILS # (AUTO) 0.1 10^3/uL (0.0-0.2); ABSOLUTE EOSINOPHILS # (AUTO) 0.4 10^3/uL (0.0-0.6); ABSOLUTE LYMPHOCYTES (AUTO) 4.7 10^3/uL (0.5-4.7); ABSOLUTE MONOCYTES (AUTO) 0.9 10^3/uL (0.1-1.4); BASOPHILS % (AUTO) 0.8 % (0-2); HEMATOCRIT 35.7 % (36.0-47.0); HEMOGLOBIN 11.9 g/dL (12.0-15.5); LYMPHOCYTES % (AUTO) 42.2 % (13-45); MEAN CORPUSCULAR HGB CONC 33.2 g/dL (32.0-36.0); MEAN CORPUSCULAR VOLUME 93 fl (80-97); MONOCYTES % (AUTO) 8.1 % (3-13); RED BLOOD COUNT 3.82 10^6/uL (3.72-5.28); RED CELL DISTRIBUTION WIDTH 13.3 % (11.5-14.0); SEGMENTED NEUTROPHILS % (AUTO) 44.9 % (42-78); TOTAL CELLS COUNTED % (AUTO) 100 %; WHITE BLOOD COUNT 11.1 10^3/uL (4.0-10.5)
[2020-05-10 09:48] LABS: INTERNATIONAL RATION (INR) 1.05; PROTHROMBIN TIME 13.7 SEC (11.4-15.4)
[2020-05-10 09:52] LABS: ALBUMIN 3.8 g/dL (3.5-5.0); ALKALINE PHOSPHATASE 58 U/L (38-126); ANION GAP 7 (5-19); ASPARTATE AMINO TRANSFERASE 33 U/L (14-36); BILIRUBIN,TOTAL 0.2 mg/dL (0.2-1.3); BLOOD UREA NITROGEN 18 mg/dL (7-20); CALCIUM 9.4 mg/dL (8.4-10.2); CARBON DIOXIDE 21 mmol/L (22-30); CHLORIDE 107 mmol/L (98-107); GLUCOSE 146 mg/dL (75-110); POTASSIUM 4.9 mmol/L (3.6-5.0); TOTAL PROTEIN 6.6 g/dL (6.3-8.2)
[2020-05-10 09:54] LABS: PLATELET COUNT 266 10^3/uL (150-450)
[2020-05-10 10:03] LABS: PARTIAL THROMBOPLASTIN TIME 28.5 SEC (23.5-35.8)
[2020-05-10] MEDS: ONDANSETRON HCL INJ/PF 4 MG/2 ML SDV IV ONE ×2 (10:23→10:25)
--- NOTE | 2020-05-10 10:31 | RADIOLOGY REPORT (SQ) ---
EXAM DESCRIPTION: U/S 1TRIMESTER/1GEST W/DOPPLER IMAGES COMPLETED DATE/TIME: 05/10/2020 10:14 am REASON FOR STUDY: pelvic pain//question of location COMPARISON: None. TECHNIQUE: Transvaginal and transabdominal static and realtime grayscale images acquired of the pelv is. Additional selected spectral and color Doppler images recorded. All images stored on PACs. [id number] CLINICAL DATES: 4 weeks, 0 days LIMITATIONS: None. FINDINGS: UTERUS: No visualized intrauterine . RIGHT ADNEXA: Normal ovary with normal vascular flow. No adnexal free fluid. No adnexal masses. LEFT ADNEXA: Normal ovary with normal vascular flow. No adnexal free fluid. No adnexal masses. FREE FLUID: Complex free fluid is seen throughout the pelvis. OTHER: No other significant finding. IMPRESSION: No definite intrauterine or extrauterine is a demonstrated. However, given di ffuse complex free fluid and beta HCG of 14,434, suspect ectopic location. TECHNICAL DOCUMENTATION: JOB ID: [id number] 2010 [employer]- All Rights Reserved Reading location - IP/workstation name: [email or web address]
[2020-05-10] MEDS ORDERED: NORMAL SALINE 250 ML IV PRN (10:52)
--- NOTE | 2020-05-10 10:57 | PDOC H&P ---
History of Present Illness Admission Date/PCP: MATTHEW PACE History of Present Illness: EDGAR SCHNEIDER is a 34 year old female 34 yo at 4 wks by LMP of 04/12/20 who presented to the ED this am with acute onset of abdominal pain. Pain radiates to upper back. Reports pain as diffuse across abdomen but mainly in LLQ. Rates pain as 4/5 pain presently. SHe states she had missed period and went to [facility] for confirmation of last week. She was seen and told her Quant HCG was 9K but no IUP seen on US. She was not having pain or vaginal bleeding. She was supposed to F/u there tomorrow. No bleeding today, just pain. She has no further issues. She has not been on control . Was not planning this but was not unhappy to be Medical history of kidney stones: multiple. No other med history Surgical history of Lap cholecystectomy and CS x1. OB history: Term CS x1, SAB first trimester x1 Past Medical History LMP: 04/12/20 Cardiac Medical History: Denies: Coronary Artery Disease, Myocardial Infarction, Hypertension Pulmonary Medical History: Denies: Asthma, Bronchitis, Chronic Obstructive Pulmonary Disease (COPD), Pneumonia Neurological Medical History: Reports: Migraine Denies: Seizures Musculoskeltal Medical History: Denies: Arthritis Psychiatric Medical History: Reports: Attention Deficit Hyperactivity Disorder, Bipolar Disorder, Depression Past Surgical History Past Surgical History: Reports: Section, Cholecystectomy Social History Smoking Status: Current Every Day Smoker Electronic Cigarette use?: No Drugs: None Family History Family History: Reviewed & Not Pertinent Parental Family History Reviewed: Yes Children Family History Reviewed: Yes Sibling(s) Family History Reviewed.: Yes Medication/Allergy Home Medications: Carisoprodol/Aspirin [Soma Compound Tablet] 1 tab PO QID 10/04/18 Cyclobenzaprine HCl [Flexeril 10 mg Tablet] 10 mg PO DAILY 10/04/18 Dextroamphetamine/Amphetamine [Adderall 30 mg Tablet] 30 mg PO BID 10/04/18 Esomeprazole Mag Trihydrate [Nexium] 40 mg PO DAILY 10/04/18 Gabapentin [Neurontin 300 mg Capsule] 300 mg PO Q8 10/04/18 Methocarbamol [Robaxin 750 mg Tablet] 750 mg PO ASDIR PRN 10/04/18 Misoprostol [Cytotec 0.2 mg Tablet] 0.2 mg PO Q4 #4 tablet 10/04/18 Oxycodone HCl/Acetaminophen [Percocet 5-325 mg Tablet] 1 tab PO Q4HP PRN #20 tablet 10/04/18 Quetiapine Fumarate [Seroquel 100 mg Tablet] 300 mg PO DAILY 10/04/18 Tizanidine HCl [Zanaflex] 4 mg PO QID 10/04/18 Venlafaxine HCl 50 mg PO DAILY 10/04/18 Cephalexin Monohydrate [Keflex 500 mg Capsule] 500 mg PO Q6H 7 Days #28 capsule 10/12/18 Metoclopramide HCl [Reglan 10 mg Tablet] 1 - 2 tab PO ASDIR PRN #12 tablet 10/12/18 Oxycodone HCl/Acetaminophen [Percocet 5-325 mg Tablet] 1 - 2 tab PO ASDIR PRN #15 tablet 10/12/18 Metoclopramide HCl [Reglan 10 mg Tablet] 1 tab PO ASDIR PRN #25 tablet 11/01/18 Cephalexin Monohydrate [Keflex 500 mg Capsule] 500 mg PO Q6H 5 Days capsule 11/26/18 Cephalexin [Cephalexin 250 MG Tablet] 1 tab PO QID #40 tablet 05/02/19 Doxycycline Hyclate 100 mg PO BID #20 capsule 05/02/19 Fluconazole [Diflucan] 150 mg PO ONCE PRN #1 tablet 05/02/19 Oxycodone HCl/Acetaminophen [Percocet 5-325 mg Tablet] 1 - 2 tab PO Q4H PRN #15 tablet 05/02/19 Cephalexin Monohydrate [Keflex 500 mg Capsule] 500 mg PO BID 7 Days #14 capsule 09/04/19 Promethazine HCl [Phenergan 25 mg Tablet] 25 mg PO Q6H PRN #15 tablet 09/04/19 Ciprofloxacin HCl [Cipro 500 mg Tablet] 500 mg PO BID #20 tablet 01/02/20 Fluconazole [Diflucan 100 Mg Tablet] 100 mg PO DAILY #1 tablet 01/02/20 Naproxen 500 mg PO BID PRN #14 tablet 01/02/20 Phenazopyridine HCl [Pyridium 100 Mg Tablet] 100 mg PO TID #9 tablet 01/02/20 Amoxicillin 1 tab PO TID #30 tab 01/18/20 Dicyclomine HCl [Bentyl 20 mg Tablet] 20 mg PO Q6H PRN #20 tablet 02/13/20 Allergies/Adverse Reactions: Sulfa (Sulfonamide Antibiotics) Allergy (Verified 01/02/20 19:16) tramadol Allergy (Verified 01/02/20 19:16) Review of Systems Constitutional: ABSENT: chills, fever(s), headache(s), weight gain, weight loss Cardiovascular: ABSENT: chest pain, dyspnea on exertion, edema, orthropnea, palpitations Respiratory: ABSENT: cough, hemoptysis Gastrointestinal: PRESENT: as per HPI, abdominal pain Genitourinary: ABSENT: dysuria, hematuria Integumentary: ABSENT: rash, wounds Neurological: ABSENT: abnormal gait, abnormal speech, confusion, dizziness, focal weakness, syncope Psychiatric: ABSENT: anxiety, depression, homidical ideation, suicidal ideation Hematologic/Lymphatic: ABSENT: easy bleeding, easy bruising Physical Exam - Physical Exam Vital Signs: Temp Pulse Resp BP Pulse Ox 98.0 F 99 05/10/20 09:34 05/10/20 09:48 Intake & Output 05/09/20 05/10/20 05/11/20 06:59 06:59 06:59 Intake Total 1000 Balance 1000 Weight 89.4 kg General appearance: PRESENT: no acute distress, cooperative Exam: Pale Respiratory exam: PRESENT: clear to auscultation wilfred Cardiovascular exam: PRESENT: RRR, +S1, +S2 GI/Abdominal exam: PRESENT: diminished bowel sounds, soft, tenderness - Tender on palpation, especially LLQ. She has rebound pain Extremities exam: PRESENT: full ROM. ABSENT: calf tenderness, clubbing, pedal edema Psychiatric exam: PRESENT: appropriate affect, normal mood. ABSENT: homicidal i deation, suicidal ideation Result Laboratory Results: 05/10/20 09:16 05/10/20 09:16 05/10/20 05/10/20 05/10/20 09:16 09:16 09:16 WBC 11.1 H RBC 3.82 Hgb 11.9 L Hct 35.7 L MCV 93 MCH 31.0 MCHC 33.2 RDW 13.3 Plt Count 266 Seg Neutrophils % 44.9 Sodium 134.6 L Potassium 4.9 Chloride 107 Carbon Dioxide 21 L Anion Gap 7 BUN 18 Creatinine 0.97 Est GFR ( Amer) > 60 Glucose 146 H Calcium 9.4 Total Bilirubin 0.2 AST 33 Alkaline Phosphatase 58 Total Protein 6.6 Albumin 3.8 Lipase 62.5 Serum HCG, Qual Cancelled Blood Type Antibody Screen 05/10/20 09:16 WBC RBC Hgb Hct MCV MCH MCHC RDW Plt Count Seg Neutrophils % Sodium Potassium Chloride Carbon Dioxide Anion Gap BUN Creatinine Est GFR ( Amer) Glucose Calcium Total Bilirubin AST Alkaline Phosphatase Total Protein Albumin Lipase Serum HCG, Qual Blood Type A POSITIVE Antibody Screen NEGATIVE Impressions: Obstetrics Ultrasound 05/10/20 09:27 IMPRESSION: No definite intrauterine or extrauterine is a demonstrated. However, given diffuse complex free fluid and beta HCG of 14,434, suspect ectopic location. Assessment & Plan - Diagnosis (1) Ruptured ectopic Is this a current diagnosis for this admission?: Yes - Plan Summary Plan Summary: Admit for observation: surgery -NPO since 829 (had water at that time) -IVFs -VS with lower blood pressure in 90s systolic but maintained by IVFs presently. Pulse in the 80s presently -quant HCG 14 K. Hgb 11.9 and coags normal -Reviewed US report and images.Complex fluid in pelvis is likely hemoperitoneum secondary to ruptured ectopic even though no discrete ectopic seen. No IUP identified. Discussed with patient. Recommend Dx laparoscopy with removal of hemoperitoneum and ectopic tissue. Possible salpingectomy/posssible oophorectomy.Risks, benefits and alternatives reviewed. Consents signed for surg jairo and blood products. -Nursing workers' compensation claims supervisor notified. -She is type and screened. WIll have 2 units blood on hold for transfusion as needed. -She is RH positive
--- NOTE | 2020-05-10 11:10 | EKG REPORT ---
SEVERITY:- NORMAL ECG - SINUS RHYTHM : Confirmed by: Steven Tate MD 10-May-2020 11:10:10
[2020-05-10] MEDS ORDERED: PROPOFOL INJ 200 MG/20 ML VIAL IV ONE (11:31)
[2020-05-10] MEDS ORDERED: HYDROMORPHONE HCL INJ/PF 2 MG/ML AMPULE ONE (11:31)
[2020-05-10] MEDS ORDERED: MIDAZOLAM 2 MG/2 ML INJ ONE (11:31)
[2020-05-10] MEDS: NORMAL SALINE 1000 ML 1,000 ML IV PRN ×2 (11:56→23:19)
[2020-05-10] MEDS ORDERED: CEFAZOLIN 1 GM/D5W RTU 1 GM/50 ML RTUPB IV SCH (12:00)
[2020-05-10] MEDS ORDERED: EPHEDRINE SULFATE INJ 50 MG/1 ML AMPULE ONE (12:42)
[2020-05-10] MEDS ORDERED: PROMETHAZINE HCL INJ 25 MG/1 ML VIAL IV PRN ×2 (13:01)
[2020-05-10] MEDS ORDERED: DIPHENHYDRAMINE HCL 50 MG/ML VIAL IV PRN (13:01)
[2020-05-10] MEDS ORDERED: FENTANYL CITRATE INJ/PF 100 MCG/2 ML AMPUL IV PRN ×3 (13:01)
[2020-05-10] MEDS ORDERED: ONDANSETRON HCL INJ/PF 4 MG/2 ML SDV IV PRN ×2 (13:01→17:26)
[2020-05-10] MEDS ORDERED: MEPERIDINE HCL/PF INJ 25 MG/1 ML DISP.SYRIN IV PRN (13:01)
[2020-05-10] MEDS ORDERED: FENTANYL CITRATE INJ/PF 100 MCG/2 ML AMPUL ONE (14:09)
--- NOTE | 2020-05-10 14:18 | Operative Report ---
Operative Report DATE OF SURGERY: 05/10/20 PREOPERATIVE DIAGNOSIS: Acute onset abdominal pain. Ruptured ectopic. Hemoper itoneum due to ruptured ectopic POSTOPERATIVE DIAGNOSIS: Same as above with addition of adhesion between omentum and anterior abdominal wall. Ruptured ectopic left fallopian tube OPERATION: Diagnostic laparoscopy. Evacution of hemoperitoneum. Left salpingectomy SURGEON: OSITO DAVENPORT ANESTHESIA: GA TISSUE REMOVED OR ALTERED: Left fallopian tube COMPLICATIONS: None ESTIMATED BLOOD LOSS: 1500 INTRAOPERATIVE FINDINGS: Large amount of blood in abdomen. Enlarged left fallopian tube with bleeding at site of rupture on left tube noted. Right ovary, left ovary and right fallopian tube grossly normal. Uterus grosssly normal. PROCEDURE: IV fluids: per anesthesia record : 3,000cc Urinary output: 250 cc Findings: Enlarged left fallopian tube with bleeding noted at site of ectopic rupture. Normal-appearing uterus, right fallopian tubes and bilateral ovaries. Appendix seen and appears normal Position: To recovery room in stable condition Description of procedure: The patient was taken to the operating room and general anesthesia was administered and found to be adequate. She was then placed on the OR table in the dorsal lithotomy position. The Patient was prepped and draped in usual sterile fashion. Timeout was taken. Bladder was emptied. A Foy retractor was used as well as a weighted speculum to visualize the cervix. The anterior lip of the cervix was then grasped with a single tooth tenaculum and an acorn uterine manipulator was placed. At this time attention was turned of the patient's abdomen and sterile gloves were donned a 1 cm infra umbilical incision was made vertically and carried down to the level of the rectus fascia. The rectus fascia was then grasped with 2 Khadijah clamps elevated and incised with Jackson scissors. Blood was noted on entry into the peritoneum. The fascia was tagged bilaterally with 0-vicryl suture. A #10 Mcfarlane trocar was positioned and CO2 gas was used to insufflate the abdomen to a quantity sufficient for the laparoscopy. The laparoscope was inserted and a survey was done of the abdomen pictures were obtained. Findings noted. Suction production laborer used to remove enough blood from the pelvis to clear the surgical field and find the ectopic. The left fallopian tube was enlarged with ectopic present and bleeding. The left tube was then traced to its fibriated end and using the ligasure the left mesosalpinx was taken down to the level of the uterus. The left fallopian tube was cross clamped, coagulated and cut near the uterine cornu. Good hemostasis was noted. Pictures were obtained. At this point the remaining blood was removed from the pelvis, bilateral gutter. Irrigation done with NS and suctioned out of pelvis until clear of clots and blood. The surgical site at area of left fallopian tube was re-examined and noted to remain hemostatic. The procedure was terminated. All instrument removed from the patient's abdomen and CO2 gas was allowed to escape. The infraumbil ical port was removed. The fascia was closed with 0 Vicryl suture. The skin was closed with 3-0 Monocryl in a series of interrupted stitiches. The skin incision was then clean dried and Dermabond was applied over the skin incision. All instrument sponge and needle counts were correct x3 for the procedure the patient tolerated the procedure well. She will proceed to recovery room in stable condition
--- NOTE | 2020-05-10 14:28 | ER Document Report ---
Entered by ROSY SPANN SCRIBE 05/10/20 0944 Acting as scribe for:ALBIN LINDO MD ED GI/ - General Chief Complaint: Abdominal Pain Stated Complaint: ABDOMINAL PAIN Time Seen by Provider: 05/10/20 09:24 Information source: Patient Notes: This 34 year old female patient presents to the emergency department today with abdominal pain. Patient states the abdominal pain began this morning and travels to her shoulders and chest. Patient states she visited [facility] days ago and has an appointment tomorrow. Patient states she had an urine test and she was positive for being . Patient states she also had a ultrasound, and they were unable to tell if the was in the uterus. Patient states her last menstrual period was 04/12, which lasted x10 days with spotting. Patient states she is A1. Patient denies bowel movement yesterday. TRAVEL OUTSIDE OF THE [place] IN LAST 30 DAYS: No - Related Data Allergies/Adverse Reactions: Sulfa (Sulfonamide Antibiotics) Allergy (Verified 01/02/20 19:16) tramadol Allergy (Verified 01/02/20 19:16) Past Medical History - General Information source: Patient - Social History Smoking Status: Current Every Day Smoker Family History: Reviewed & Not Pertinent Neurological Medical History: Reports: Hx Migraine, Hx Seizures - x2, Reaction from tramadol Renal/ Medical History: Reports: Hx Kidney Stones GI Medical History: Reports: Hx Irritable Bowel Psychiatric Medical History: Reports: Hx Anxiety, Hx Attention Deficit Hy peractivity Disorder, Hx Bipolar Disorder, Hx Depression Past Surgical History: Reports: Hx Section, Hx Cholecystectomy, Hx Genitourinary Surgery - stones, Hx Gynecologic Surgery - removal of fetus, Hx Kidney (Renal Surgery) - stones - Immunizations Immunizations up to date: Yes Hx Diphtheria, Pertussis, Tetanus Vaccination: Yes Review of Systems - Review of Systems Constitutional: No symptoms reported EENT: No symptoms reported Cardiovascular: No symptoms reported Respiratory: No symptoms reported Gastrointestinal: See HPI, Abdominal pain Genitourinary: No symptoms reported Female Genitourinary: See HPI, Last menstrual period - 04/12, Musculoskeletal: See HPI Skin: No symptoms reported Hematologic/Lymphatic: No symptoms reported Neurological/Psychological: No symptoms reported -: Yes All other systems reviewed and negative Physical Exam - Vital signs Vitals: BP 114/61 05/10/20 09:14 - General General appearance: Appears well, Alert - HEENT Head: Normocephalic, Atraumatic Eyes: Normal Pupils: PERRL - Respiratory Respiratory status: No respiratory distress Chest status: Nontender Breath sounds: Normal Chest palpation: Normal - Cardiovascular Rhythm: Regular Heart sounds: Normal auscultation, S1 appreciated, S2 appreciated Murmur: No - Abdominal Inspection: Normal Distension: No distension Bowel sounds: Normal Tenderness: Tender - LLQ - Extremities General upper extremity: Normal inspection. No: Edema General lower extremity: Normal inspection. No: Edema - Neurological Neuro grossly intact: Yes Cognition: Normal Orientation: AAOx4 Speech: Normal - Psychological Associated symptoms: Normal affect, Normal mood - Skin Skin Temperature: Warm Skin Moisture: Dry Skin Color: Normal Course - Re-evaluation Re-evalutation: 05/10/20 14:18 Patient had a drop in blood pressure in the 80s requiring IV bolus of fluids to return her blood pressure to normal range greater than 100. Patient responded well to IV fluid resuscitation and continue to maintain a blood pressure is greater than 100. There was great suspicion that patient may have a ectopic inasmuch as she was seen in [facility] a last week on and was found to be but there was no evidence of location of the . Based based on no indicatio n on the ultrasound that was done. Patient was told to follow-up again [facility] However this a.m. patient had tremendous pain acutely with pain radiating up both sides of her back up to her shoulders. 05/10/20 14:22 At the time of realizing the preliminary findings on the bedside ultrasound notified Dr. Kennedy who is on-call OB pocket and pulley machine operator today regarding the most likely diagnosis of a ruptured ectopic with hypotension at the time we spoke. was consulted and came down to see the patient bedside in the ED. - Vital Signs Vital signs: Temp Pulse Resp BP Pulse Ox 98.0 F 94 26 H 101/63 100 05/10/20 11:06 05/10/20 11:06 05/10/20 11:43 05/10/20 11:45 05/10/20 11:43 Vital signs stable except for respiratory rate of 26. - Laboratory Result Diagrams: 05/10/20 09:16 05/10/20 09:16 Laboratory results interpreted by me: 05/10/20 05/10/20 05/10/20 09:16 09:16 09:16 WBC 11.1 H Hgb 11.9 L Hct 35.7 L Sodium 134.6 L Carbon Dioxide 21 L Glucose 146 H ALT 60 H Beta HCG, Quant Crossmatch See Detail 05/10/20 09:16 WBC Hgb Hct Sodium Carbon Dioxide Glucose ALT Beta HCG, Quant 87873.00 H Crossmatch Laboratories within normal limits except patient is with a beta-hCG quant 14,434. It was 9005 days ago. Patient's glucose is 146 and ALT of 60. - Diagnostic Test Radiology reviewed: Image reviewed, Reports reviewed Radiology results interpreted by me: 05/10/20 14:21 OB ultrasound shows no identified location of in the tube or in the uterus. However there is a complex fluid material in the cul-de-sac and most likely represent a ruptured ectopic . - EKG Interpretation by Me Additional EKG results interpreted by me: 05/10/20 11:19 Twelve-lead EKG shows normal sinus rhythm rate of [address]-T wave changes. Critical Care Note - Critical Care Note Total time excluding time spent on procedures (mins): 45 - Management of hypotension abdominal pain, ruptured ectopic , and coordinating information and with [facility] service. IV resuscitation, and blood bank orders for for blood type and screen and cross. Discharge - Discharge Clinical Impression: Ruptured left tubal ectopic causing hemoperitoneum Condition: Critical Disposition: ADMITTED INPATIENT Admitting Provider: Anitaapple Kennedy Unit Admitted: Post I personally performed the services described in the documentation, reviewed and edited the documentation which was dictated to the scribe in my presence, and it accurately records my words and actions.
[2020-05-10] MEDS ORDERED: OXYCODONE-ACETAMINOPHEN 5-325 MG TABLET PO PRN (17:27)
[2020-05-10] MEDS ORDERED: IBUPROFEN 800 MG TABLET PO PRN (17:30)
[2020-05-10] MEDS: MORPHINE SULFATE 10 MG/ML INJ IV PRN ×2 (17:38→23:11)
[2020-05-10] MEDS: PANTOPRAZOLE SODIUM 40 MG TABLET.DR PO SCH (17:48)
[2020-05-10] MEDS: LORAZEPAM 0.5 MG TABLET PO PRN (17:53)
[2020-05-10] MEDS ORDERED: METHOCARBAMOL 500 MG TABLET PO SCH (18:00)
[2020-05-10 18:16] LABS: HEMATOCRIT 29.3 % (36.0-47.0); HEMOGLOBIN 9.9 g/dL (12.0-15.5); MEAN CORPUSCULAR HEMOGLOBIN 31.7 pg (27.0-33.4); MEAN CORPUSCULAR HGB CONC 33.8 g/dL (32.0-36.0); MEAN CORPUSCULAR VOLUME 94 fl (80-97); PLATELET COUNT 140 10^3/uL (150-450); RED BLOOD COUNT 3.12 10^6/uL (3.72-5.28); RED CELL DISTRIBUTION WIDTH 13.3 % (11.5-14.0); WHITE BLOOD COUNT 15.6 10^3/uL (4.0-10.5)
[2020-05-10] MEDS: OXYCODONE-ACETAMINOPHEN 5-325 MG TABLET PO PRN (19:04)
[2020-05-10] MEDS ORDERED: RISPERIDONE 1 MG TABLET ONE (21:42)
[2020-05-10] MEDS ORDERED: METHOCARBAMOL 500 MG TABLET ONE (21:42)
[2020-05-10] MEDS: METHOCARBAMOL 500 MG TABLET PO SCH (21:58)
[2020-05-10] MEDS: GABAPENTIN 300 MG CAPSULE PO SCH (21:58)
[2020-05-10] MEDS ORDERED: RISPERIDONE 1 MG TABLET PO SCH (22:00)
[2020-05-11] MEDS: OXYCODONE-ACETAMINOPHEN 5-325 MG TABLET PO PRN ×2 (00:04→08:26)
[2020-05-11] MEDS: LORAZEPAM 0.5 MG TABLET PO PRN (00:05)
[2020-05-11] MEDS: GABAPENTIN 300 MG CAPSULE PO SCH (06:08)
[2020-05-11] MEDS: PANTOPRAZOLE SODIUM 40 MG TABLET.DR PO SCH (06:08)
[2020-05-11] MEDS: NORMAL SALINE 1000 ML 1,000 ML IV PRN (06:44)
--- NOTE | 2020-05-11 07:06 | Discharge Summary ---
Discharge Summary (SDC) - Discharge Final Diagnosis: Ruptured ectopic Hemoperitoneum associated with ruptured ectopic Date of Surgery: 05/10/20 Condition: Stable Treatment or Instructions: No heavy lifting for 6 weeks. May shower as desired No intercourse for 2 weeks Folllow up in our office in 2 weeks for post-op check Referrals: ROSEMARIE GEORGE FNP [Primary Care Provider] - Follow up as needed Discharge Diet: As Tolerated Respiratory Treatments at Home: Deep Breathing/Coughing Discharge Activity: Activity As Tolerated, No Driving - until off pain medications, No Lifting Over 10 Pounds, Pelvic Rest, Slowly Increase Activity, No tub bath, Walk Frequently Home Care Assistance: None Needed Report the Following to Your Physician Immediately: Shortness of Breath, Vomiting, Fever over 101 Degrees, Unusual Bleeding, Drainage-Yellow, Drainage- Foul Smelling, Visual Disturbance, IV Site Infection Signs
[2020-05-11 08:10] LABS: HEMATOCRIT 23.6 % (36.0-47.0); HEMOGLOBIN 8.3 g/dL (12.0-15.5); MEAN CORPUSCULAR HEMOGLOBIN 32.2 pg (27.0-33.4); MEAN CORPUSCULAR VOLUME 92 fl (80-97); PLATELET COUNT 131 10^3/uL (150-450); RED BLOOD COUNT 2.57 10^6/uL (3.72-5.28); RED CELL DISTRIBUTION WIDTH 13.7 % (11.5-14.0); WHITE BLOOD COUNT 10.5 10^3/uL (4.0-10.5)
[2020-05-11 08:52] VITALS: BP 105/56
[2020-05-11] MEDS: METHOCARBAMOL 500 MG TABLET PO SCH (09:53)
[2020-05-11] MEDS ORDERED: VENLAFAXINE HCL 75 MG CAP.SR.24H PO SCH ×2 (10:00)
[2020-05-11] MEDS ORDERED: VENLAFAXINE HCL 25 MG TABLET PO SCH (10:00)
== END 2020-05-11 09:53 | disposition home or self-care (01) ==
LOC: ER 09:08 → EH 11:29 → 2S 14:55
PROVIDERS: ADMIT Obstetrics & Gynecology; ATTEND Obstetrics & Gynecology
DX: O00.90 Unspecified ectopic pregnancy without intrauterine pregnancy (principal); K66.1 Hemoperitoneum; I95.9 Hypotension, unspecified; F17.200 Nicotine dependence, unspecified, uncomplicated; Z90.49 Acquired absence of other specified parts of digestive tract; Z87.442 Personal history of urinary calculi; Z79.899 Other long term (current) drug therapy; Z03.818 Encounter for observation for suspected exposure to other biological agents ruled out
CPT/HCPCS: 59151; 93005; 99291; 96360; 96361; 86900; 86901; 36415 ×2; 36430; 86850; 84702; 83605; 83690; 85025; 85027; 85610; 85730; 80053; 86920; 88305 ×2; 76801; 93976; 94799 ×2; 93010; 99140; 00840; G0378 ×3; P9016; U0003; J2250; J0690; J3490 ×5; J1100; A9270 ×10; J1885; J3010; J2765; J2270; J2710; J1170; J2370; J2405; J7030 ×2; J2704; C9803; 840; 87635

== ENCOUNTER → 2020-06-12 | Outpatient (CLI) | payer MEDICARE, OTHER ==
--- NOTE | 2020-06-12 14:23 | ER [facility] ASSESSMENT REPORT ---
Intake - In the Last 14 days Have you traveled outside [place]?: No Have you been in close contact with someone CONFIRMED: No Worked in Healthcare?: No - Symptoms Subjective Fever([place] feverish): Yes Chills: No Muscule Aches: Yes Runny Nose: Yes Sore Throat: Yes Cough (New or worsening chronic cough): No Shortness of breath: No Nausea or Vomiting: Yes Headache: Yes Abdominal Pain: Yes Diarrhea(3 or more loose stools in last 24 hours): Yes - Do you have any of the following Chronic lung disease: Asthma or emphysema or COPD: No Cystic Fibrosis: No Diabetes: No High Blood Pressure: No Cardiovascular Disease: No Chronic Kidney Disease: No Chronic Liver Disease: No Chronic blood disorder like Sickle Cell Disease: No Weak immune system due to disease or medication: No Neurologic condition that limits movement: No Developmental delay - Moderate to Severe: No Recent (within past 2 weeks) or current : No Morbid Obesity (>100 pounds over ideal weight): No - Objective Temperature: 95.6 F Pulse Rate: 93 Respiratory Rate: 16 Blood Pressure: 127/67 O2 Sat by Pulse Oximetry: 97 Objective: Given above, testing performed: If Testing Performed: Test Specimen Type Sent to General - General Information source: Patient Notes: Patient presents to the [facility] for screening for the coronavirus. Patient reports having fever, body aches, runny nose, sore throat, headache and nausea. Patient states symptoms started yesterday. - Related Data Allergies/Adverse Reactions: Sulfa (Sulfonamide Antibiotics) Allergy (Verified 01/02/20 19:16) tramadol Allergy (Verified 01/02/20 19:16) Past Medical History - General Information source: Patient - Social History Smoking Status: Current Every Day Smoker Family History: Reviewed & Not Pertinent - Past Medical History Cardiac Medical History: Denies: Hx Coronary Artery Disease, Hx Heart Attack, Hx Hypertension Pulmonary Medical History: Denies: Hx Asthma, Hx Bronchitis, Hx COPD, Hx Pneumonia Neurological Medical History: Reports: Hx Migraine, Hx Seizures - x2, Reaction from tramadol. Denies: Hx Cerebrovascular Accident Renal/ Medical History: Reports: Hx Kidney Stones. Denies: Hx Peritoneal Dialysis GI Medical History: Reports: Hx Irritable Bowel Musculoskeletal Medical History: Denies Hx Arthritis Psychiatric Medical History: Reports: Hx Anxiety, Hx Attention Deficit Hyperactivity Disorder, Hx Bipolar Disorder, Hx Depression Past Surgical History: Reports: Hx Section, Hx Cholecystectomy, Hx Genitourinary Surgery - stones, Hx Gynecologic Surgery - removal of fetus, Hx Kidney (Renal Surgery) - stones Physical Exam - Notes Notes: Full physical exam could not be performed due to covid 19 isolation protocols. Constitutional: Nontoxic appearance, no acute distress Eyes: Nonicteric, extraocular movements intact, sclera clear ENT: Posterior pharynx clear without exudates, no tonsillar hypertrophy Cardiovascular: Heart rate and rhythm regular, no JVD Respiratory: Breath sounds clear bilaterally nonlabored breathing, no use of accessory muscles, no tachypnea Gastrointestinal: Abdomen not distended Muculoskeletal: Moves all extremities well Skin: Normal color Neuro: Awake alert oriented, normal speech Psych: Normal mood and affect Diagnostic Results Laboratory Results: The patient was evaluated during the global Covid 19 pandemic, and that diagnosis was suspected/considered upon their initial presentation. Their evaluation, treatment and testing was consistent with current guidelines for patients who present with complaints or symptoms that may be related to Covid 19. Patient presents with upper respiratory symptoms worrisome for possible Covid 19. Patient does not have emergency worrying symptoms such as difficulty breathing, shortness of breath, chest pain, pressure, confusion or cyanosis. Patient appears suitable for discharge as they are not of an advanced age, do not have any chronic medical conditions such as diabetes, CAD, immune deficiency, chronic lung disease or chronic kidney disease. Patient's vital signs are stable and patient is nontoxic in appearance. Good return precautions have been discussed with patient, patient verbalized understanding and is agreeable with discharge plan of care at this time. Patient Education/Counseling Counseling/Education: Patient was provided with discharge information including: As a person under investigation for Covid 19, the [place] department of Health and Human Services, division of public health advises you to adhere to the following guidance until your test results are reported to you. If your test result is positive, you will receive additional information from your provider and your local health department at that time. Remain at home until you are cleared by the health provider or public health authorities. Keep a log of visitors to your home, notify any visitors to your home of your isolation status. If you plan to move to a new address or leave the county, notify the local health department in your County. Call your doctor or seek care if you have an urgent medical need. Before seeking medical care, call ahead to get instructions from the provider before arriving at the medical office clinic or hospital. Notify them that you are being tested for the virus that causes Covid 19 so that arrangements can be made, as necessary, to prevent transmission to others in the healthcare setting. Next, notify the local health department in your county. If a medical emergency arises and you need to call 911, inform the first responders that you are being tested for the virus that causes Covid 19. Next, notify the local health department in your county. [facility] Discharge - Discharge Clinical Impression: Encounter for screening laboratory testing for COVID-19 virus Condition: Stable Disposition: Home; Selfcare
[2020-06-12 14:48] VITALS: BP 127/67
== END ==
LOC: RDC 14:06
PROVIDERS: ATTEND Nurse Practitioner Family
DX: Z20.828 Contact with and (suspected) exposure to other viral communicable diseases (principal)
CPT/HCPCS: 87070; 87880; U0003; C9803; 87635; 99201; 99211